=== PATIENT | male | born 1950 | race Caucasian/White ===

== ENCOUNTER 2017-07-29 09:27 | Emergency (ER) | payer OTHER ==
--- OUTSIDE RECORDS SUMMARY | 2017-07-29 09:29 | XMS REPORT | Clinical Summary ---
:1950 Author Organization [facility] Address [address] [place] [address] Care Team Providers Name Role Phone Felipe Hobson MD Primary Care Provider Allergies No Known Allergies Current Medications Prescription Sig. Disp. Refills Start Date End Date Status SINEMET 25-100 mg per 06/30/2016 Active tablet RABEprazole (ACIPHEX) 20 TAKE 1 TABLET BY 3 05/30/2016 Active mg EC tablet ORAL ROUTE 2 TIMES EVERY DAY ZOLOFT 100 mg tablet 06/30/2016 Active tamsulosin (FLOMAX) 0.4 05/06/2016 Active mg capsule,extended release 24hr finasteride (PROSCAR) 5 Take 5 mg by mouth 2 06/18/2016 Active mg tablet once daily. solifenacin (VESICARE) 10 07/18/2016 Active MG tablet aspirin (ECOTRIN) 81 MG Take 81 mg by mouth Active enteric coated tablet daily. docusate sodium (COLACE) Take 100 mg by Active 100 MG capsule mouth. 3 a day Active Problems Not on file Encounters Date Type Specialty Care Team Description 07/29/2016 Lab Lab Drew Hightower MD Thyroid nodule (Primary Dx) 07/29/2016 Office Visit Endocrinology Drew Hightower MD Thyroid nodule ( Primary Dx) after 07/28/2016 Family History Medical History Relation Name Comments Heart attack Father Cancer Mother Relation Name Status Comments Father Mother Social History Tobacco Use Types Packs/Day Years Used Date Never Smoker Smokeless Tobacco: Never Used Alcohol Use Drinks/Week oz/Week Comments No Sex Assigned at Date Recorded Not on file Last Filed Vital Signs Vital Sign Reading Time Taken Blood Pressure 136/81 07/29/2016 9:25 AM CDT Pulse 70 07/29/2016 9:25 AM CDT Temperature - - Respiratory Rate - - Oxygen Saturation - - Inhaled Oxygen Concentration - - Weight 89.4 kg (197 lb 3.2 oz) 07/29/2016 9:25 AM CDT Height 177.8 cm (5' 10") 07/29/2016 9:25 AM CDT Body Mass Index 28.3 07/29/2016 9:25 AM CDT Plan of Treatment Health Maintenance Due Date Last Done Comments COLONOSCOPY 01/19/1998 SHINGRIX VACCINE (#1) 01/19/1998 ZOSTER VACCINE 2008 PNEUMOCOCCAL POLYSACCHARIDE VACCINE AGE 65 AND OVER 01/19/2013 PNEUMOCOCCAL-13 01/19/2013 INFLUENZA VACCINE 11/01/2017 Results Cytology (non-gynecological) request (07/29/2016 6:59 AM) Component Value Ref Range Cytology (non-gynecological) report See link below for PDF Lab Report Specimen Performing Laboratory [facility] DEPARTMENT OF PATHOLOGY AND GENOMIC MEDICINE [address] [place] [address] after 07/28/2016 Insurance Payer Benefit Plan / Group Subscriber ID Type Phone Address HUMANA HUMANA HMO/POS/EPO/OPEN ACCESS xxxxxxxxx O Home: [phone] [place], [place] [id number]
[2017-07-29] MEDS ORDERED: PANTOPRAZOLE 40 MG INJ ONE (10:13)
[2017-07-29 10:59] LABS: Absolute Lymphocytes (CBC) 1.8 K/uL (0.7-4.9); Absolute Monocytes 0.5 K/uL (0.1-1.3); Absolute Neutrophil 5.6 K/uL (1.8-8.0); Basophils % 0.6 % (0-1.3); Eosinophils % 3.8 % (0-4.4); Hematocrit 44.7 % (39.6-49.0); Lymphocytes % 21.7 % (15.3-44.8); MCH 29.9 pg (27.0-35.0); MCV 89.2 fL (80-100); MPV 7.5 fL (7.6-11.3); Monocytes % 5.6 % (3.3-12.3); RBC Red Blood Cell Count 5.02 M/uL (4.33-5.43)
[2017-07-29 11:04] LABS: Potassium 4.3 mEq/L (3.6-5.0)
[2017-07-29 11:05] LABS: Protime INR 1.06
--- NOTE | 2017-07-29 11:07 | RAD REPORT ---
EXAM DESCRIPTION: CT - [id number] - 07/29/2017 10:44 am CLINICAL HISTORY: Trauma, head and neck injury. COMPARISON: None. TECHNIQUE: Axial 5 mm thick images of the head were obtained. Axial 2 mm thick images of the cervical spine were obtained with sagittal and coronal reconstruction images generated and reviewed. All CT scans are performed using dose optimization technique as appropriate and may include automated exposure control or mA/KV adjustment according to patient size. FINDINGS: CT HEAD WITHOUT CONTRAST: A small amount of crescentic hyperdensity is seen along the right temporal convexity suspicious for a small subdural hematoma, maximum thickness is 3 mm.No hydrocephalus is seen. No midline shift. The paranasal sinuses and mastoids are clear.The calvarium is intact. CT CERVICAL SPINE WITHOUT CONTRAST: No fracture or subluxation.Multilevel cervical degenerative changes are present.No prevertebral soft tissues swelling is identified. IMPRESSION: 3 mm right temporal acute subdural hematoma suspected. No cervical spine fracture suspected. Findings were discussed with Erich JAMESON in the ER 11 a.m. 04/30/2017 by telephone.
[2017-07-29 11:10] LABS: Albumin 4.4 g/dL (3.2-5.5); Bilirubin Direct 0.1 mg/dL (0-0.2); Bilirubin Total 0.6 mg/dL (0.3-1.2); Protein, Total 7.3 g/dL (6.0-8.3)
--- NOTE | 2017-07-29 11:42 | ER ---
Nurse's Notes [facility] Name: Osman Foy Age: 67 yrs Sex: Male : 1950 Arrival Date: 07/29/2017 Time: 09:31 Bed 5 Private MD: Diagnosis: Traumatic subdural hemorrhage Presentation: 07/29 09:46 Presenting complaint: Patient states: About 2 weeks ago I had a fall from standing and la1 hit the right side of my face right below my eye. -LOC, pt states it did not hurt till 3 days ago but now is having pain behind his right eye. Pt denies visual field loss. Transition of care: patient was not received from another setting of care. Onset of symptoms was July 29, 2017. Initial Sepsis Screen: Does the patient meet any 2 criteria? No. Patient's initial sepsis screen is negative. Does the patient have a suspected source of infection? No. Patient's initial sepsis screen is negative. Care prior to arrival: None. 09:46 Method Of Arrival: Ambulatory la1 09:46 Acuity: SHELIA 3 la1 Historical: - Allergies: 09:48 No Known Allergies; la1 - Home Meds: 11:35 memantine 5 mg oral tab 2 times per day [Active]; sertraline 100 mg oral tab 1 tab once hb daily [Active]; rabeprazole 20 mg oral TbEC 1 tab every 12 hours [Active]; finasteride 5 mg oral tab 1 tab once daily [Active]; Vesicare 10 mg oral tab 1 tab once daily [Active]; carbidopa-levodopa 25-100 mg Oral TbER 1 tab 3 times per day [Active]; tamsulosin 0.4 mg oral cp24 1 cap twice a day [Active]; Stool Softener oral oral [Active]; aspirin 81 mg Oral TbEC 1 tab once daily [Active]; rivastigmine tartrate 4.5 mg oral cap 1 cap 2 times per day [Active]; Myrbetriq 50 mg oral Tb24 1 tab once daily [Active]; - PMHx: 09:48 Parkinsons; la1 - PSHx: 11:35 Cholecystectomy; Appendectomy; Vasectomy; hb - Immunization history:: Adult Immunizations up to date. - Social history:: Smoking status: Patient/guardian denies using tobacco. Screenin:39 Abuse screen: Denies threats or abuse. Denies injuries from another. Nutritional hb screening: No deficits noted. Tuberculosis screening: No symptoms or risk factors identified. Fall Risk Total Vee Fall Scale indicates High Risk Score (45 or more points). Fall prevention measures have been instituted. Side Rails Up X 2 Frequent Obs/Assessments Occuring Family Present and informed to notify staff if the need to leave the bedside As available patient and family educated on Fall Prevention Program and Strategies. Assessment: 10:32 General: Appears in no apparent distress. Behavior is calm, cooperative. Pain: Pain hb currently is 7 out of 10 on a pain scale. Neuro: Level of Consciousness is awake, alert, obeys commands, Oriented to person, place, time, situation, Pupils are PERRLA. Cardiovascular: Capillary refill < 3 seconds Patient's skin is warm and dry. Respiratory: Airway is patent Trachea midline Respiratory effort is even, unlabored, Respiratory pattern is regular, symmetrical. GI: No signs and/or symptoms were reported involving the gastrointestinal system. : No signs and/or symptoms were reported regarding the genitourinary system. EENT: No signs and/or symptoms were reported regarding the EENT system. Derm: No signs and/or symptoms reported regarding the dermatologic system. Skin is intact, is healthy with good turgor. Musculoskeletal: No signs and/or symptoms reported regarding the musculoskeletal system. 11:30 Reassessment: Patient appears in no apparent distress at this time. No changes from hb previously documented assessment. Patient and/or family updated on plan of care and expected duration. Pain level reassessed. Patient is alert, oriented x 3, equal unlabored respirations, skin warm/dry/pink. 12:00 Reassessment: Patient appears in no apparent distress at this time. No changes from hb previously documented assessment. Patient and/or family updated on plan of care and expected duration. Pain level reassessed. Patient is alert, oriented x 3, equal unlabored respirations, skin warm/dry/pink. 12:11 Reassessment: Report called to JOSE Davis at [facility]. hb Vital Signs: 09:48 BP 151 / 89; Pulse 59; Resp 16; Temp 98.0(O); Pulse Ox 100% on R/A; Weight 88.45 kg; la1 Height 5 ft. 10 in. (177.80 cm); 10:30 BP 148 / 88; Pulse 58; Resp 16; Pulse Ox 100% on R/A; hb 11:32 BP 165 / 90; Pulse 84; Resp 16; Pulse Ox 100% on R/A; Pain 3/10; hb 12:30 BP 168 / 88; Pulse 74; Resp 16; Pulse Ox 100% on R/A; hb 12:50 BP 197 / 98; Pulse 68; Resp 15; Pulse Ox 100% on R/A; Pain 4/10; hb 09:48 Body Mass Index 27.98 (88.45 kg, 177.80 cm) la1 [place] Coma Score: 10:00 Eye Response: spontaneous(4). Verbal Response: oriented(5). Motor Response: obeys hb commands(6). Total: 15. 11:00 Eye Response: spontaneous(4). Verbal Response: oriented(5). Motor Response: obeys hb commands(6). Total: 15. 12:00 Eye Response: spontaneous(4). Verbal Response: oriented(5). Motor Response: obeys hb commands(6). Total: 15. ED Course: 09:31 Patient arrived in ED. mr 09:48 Triage completed. la1 09:48 Arm band placed on left wrist. la1 10:00 Patient has correct armband on for positive identification. Placed in gown. Bed in low hb position. Call light in reach. Side rails up X 1. 10:08 Erich Leyva PA is PHCP. cp 10:08 Erich Sierra MD is Attending Physician. cp 10:16 Opal Alanis, JOSE is Primary Nurse. hb 10:36 Inserted saline lock: 20 gauge in left antecubital area, using aseptic technique. Blood hb collected. 10:44 CT Head C Spine: fall 11 days ago, elevated blood pressure In Process Unspecified. EDMS 10:45 CT completed. Patient tolerated procedure well. Patient moved back from CT. bq 12:45 No provider procedures requiring assistance completed. IV discontinued, intact, hb bleeding controlled, No redness/swelling at site. Pressure dressing applied. Administered Medications: 12:51 Drug: morphine 2 mg Route: IVP; Site: left antecubital; hb 12:51 Follow up: Response: Medication administered at discharge. hb 12:51 Drug: Zofran 4 mg Route: IVP; Site: left antecubital; hb 12:52 Follow up: Response: Medication administered at discharge. hb 12:51 Drug: hydrALAZINE 5 mg Route: IV; Rate: calculated rate; Site: left antecubital; hb 12:52 Follow up: Response: Medication administered at discharge. hb 12:52 Follow up: IV Status: Completed infusion hb Outcome: 11:42 ER care complete, transfer ordered by . cp 12:45 Transferred by ground EMS to [facility]. hb 12:45 Condition: stable 12:45 Instructed on the need for transfer, Demonstrated understanding of instructions. Signatures: Dispatcher [employer] EDMS Diana Gonzalez mr LelandEden Lee, RN RN la1 Erich Leyva PA PA Opal Calabrese RN RN hb Corrections: (The following items were deleted from the chart) 18:42 12:52 Patient left the ED. hb hb
--- NOTE | 2017-07-29 11:42 | EDPHYS ---
Physician Documentation [facility] Name: Osman Foy Age: 67 yrs Sex: Male : 1950 Arrival Date: 07/29/2017 Time: 09:31 Bed 5 Private MD: ED Physician Erich Sierra HPI: 07/29 10:19 This 67 yrs old Male presents to ER via Ambulatory with complaints of cp Headache. 10:19 The patient complains of pain to the behind eyes. The patient describes the headache as cp waxing and waning. Onset: The symptoms/episode began/occurred 11 day(s) ago. Associated signs and symptoms: Pertinent negatives: altered mental status, dizziness, fever, neck stiffness, paresthesias, sinus congestion, sinus tenderness, vision changes, weakness. Severity of symptoms: in the emergency department the pain has improved, moderately, took tylenol this morning. Headache History: Denies prior headaches. Historical: - Allergies: 09:48 No Known Allergies; la1 - Home Meds: 11:35 memantine 5 mg oral tab 2 times per day [Active]; sertraline 100 mg oral tab 1 tab once hb daily [Active]; rabeprazole 20 mg oral TbEC 1 tab every 12 hours [Active]; finasteride 5 mg oral tab 1 tab once daily [Active]; Vesicare 10 mg oral tab 1 tab once daily [Active]; carbidopa-levodopa 25-100 mg Oral TbER 1 tab 3 times per day [Active]; tamsulosin 0.4 mg oral cp24 1 cap twice a day [Active]; Stool Softener oral oral [Active]; aspirin 81 mg Oral TbEC 1 tab once daily [Active]; rivastigmine tartrate 4.5 mg oral cap 1 cap 2 times per day [Active]; Myrbetriq 50 mg oral Tb24 1 tab once daily [Active]; - PMHx: 09:48 Parkinsons; la1 - PSHx: 11:35 Cholecystectomy; Appendectomy; Vasectomy; hb - Immunization history:: Adult Immunizations up to date. - Social history:: Smoking status: Patient/guardian denies using tobacco. ROS: 10:25 Constitutional: Negative for body aches, chills, fever, poor PO intake. cp 10:25 Eyes: Negative for injury, pain, redness, and discharge. cp 10:25 ENT: Negative for drainage from ear(s), ear pain, sore throat, difficulty swallowing, difficulty handling secretions. 10:25 Cardiovascular: Negative for chest pain, edema, palpitations. 10:25 Respiratory: Negative for cough, shortness of breath, wheezing. 10:25 Abdomen/GI: Negative for abdominal pain, vomiting, diarrhea, constipation, black/tarry stool, rectal bleeding. 10:25 Back: Negative for pain at rest, pain with movement, radiated pain. 10:25 Skin: Negative for cellulitis, rash. 10:25 Neuro: Positive for headache, Negative for altered mental status, dizziness, seizure activity, speech changes, weakness. 10:25 All other systems are negative. Exam: 10:33 Constitutional: The patient appears in no acute distress, alert, awake, cp non-diaphoretic, non-toxic, well developed, well nourished. 10:33 Head/Face: Normocephalic, atraumatic. cp 10:33 Eyes: Periorbital structures: appear normal, Pupils: equal, round, and reactive to light and accomodation, Extraocular movements: intact throughout, Conjunctiva: normal, no exudate, no injection, Sclera: no appreciated abnormality, Lids and lashes: appear normal, bilaterally. 10:33 ENT: External ear(s): are unremarkable, Ear canal(s): are normal, clear, TM's: bulging, is not appreciated, bilaterally, dullness, bilaterally, erythema, is not appreciated, bilaterally, Nose: is normal, Mouth: Lips: moist, Oral mucosa: pink and intact, moist, Posterior pharynx: is normal, airway is patent, no erythema, no exudate. 10:33 Neck: C-spine: vertebral tenderness, is not appreciated, crepitus, is not appreciated, ROM/movement: is normal, is supple, without pain, no range of motions limitations, no nuchal rigidity. 10:33 Chest/axilla: Inspection: normal, Palpation: is normal, no crepitus, no tenderness. 10:33 Cardiovascular: Rate: bradycardic, Rhythm: regular, Edema: JVD: is not appreciated. 10:33 Respiratory: the patient does not display signs of respiratory distress, Respirations: normal, no use of accessory muscles, no retractions, no splinting, no tachypnea, labored breathing, is not present, Breath sounds: are clear throughout, no decreased breath sounds, no stridor. 10:33 Abdomen/GI: Inspection: abdomen appears normal, Bowel sounds: active, all quadrants, Palpation: abdomen is soft and non-tender, in all quadrants, rebound tenderness, is not appreciated, voluntary guarding, is not appreciated, involuntary guarding, is not appreciated. 10:33 Back: pain, is absent, ROM is normal. 10:33 Musculoskeletal/extremity: Exam is negative for decreased range of motion, deformity, injury. 10:33 Skin: cellulitis, is not appreciated, no rash present. 10:33 Neuro: Orientation: to person, place \T\ time. Mentation: lucid, able to follow commands, Cerebellar function: Romberg testing is negative, normal finger to nose testing, Motor: moves all fours, strength is normal, Sensation: no obvious gross deficits. 11:06 ECG was reviewed by the Attending Physician. cp Vital Signs: 09:48 BP 151 / 89; Pulse 59; Resp 16; Temp 98.0(O); Pulse Ox 100% on R/A; Weight 88.45 kg; la1 Height 5 ft. 10 in. (177.80 cm); 10:30 BP 148 / 88; Pulse 58; Resp 16; Pulse Ox 100% on R/A; hb 11:32 BP 165 / 90; Pulse 84; Resp 16; Pulse Ox 100% on R/A; Pain 3/10; hb 12:30 BP 168 / 88; Pulse 74; Resp 16; Pulse Ox 100% on R/A; hb 12:50 BP 197 / 98; Pulse 68; Resp 15; Pulse Ox 100% on R/A; Pain 4/10; hb 09:48 Body Mass Index 27.98 (88.45 kg, 177.80 cm) la1 [place] Coma Score: 10:00 Eye Response: spontaneous(4). Verbal Response: oriented(5). Motor Response: obeys hb commands(6). Total: 15. 11:00 Eye Response: spontaneous(4). Verbal Response: oriented(5). Motor Response: obeys hb commands(6). Total: 15. 12:00 Eye Response: spontaneous(4). Verbal Response: oriented(5). Motor Response: obeys hb commands(6). Total: 15. MDM: 10:08 Patient medically screened. cp 10:30 Differential diagnosis: hypertensive headache, hyponatremia, intracerebral hemorrhage, cp subarachnoid bleed, subdural hematoma, temporal arteritis, tension headache. 11:18 Physician consultation: Christiano Collins MD was called at 11:18, was contacted at 11:18, regarding patient's condition, after a discussion of the case, a recommendation for transfer for higher level of care is made. 11:28 Data reviewed: vital signs, nurses notes, lab test result(s), EKG, radiologic studies, cp CT scan. Test interpretation: by ED physician or midlevel provider: ECG. 11:39 ED course: VSS. Consult with DR Singh \T[facility] who will accept patient as transfer. cp 07/29 10:23 Order name: Basic Metabolic Panel; Complete Time: 11:37 cp 07/29 11:54 Interpretation: Normal except: GLUC 129; GFR 66. cp 07/29 10:23 Order name: CBC with Diff; Complete Time: 11:07 cp 07/29 11:54 Interpretation: Normal except: MPV 7.5. cp 07/29 10:23 Order name: LFT's; Complete Time: 11:37 cp 07/29 10:23 Order name: Magnesium; Complete Time: 11:37 cp 07/29 10:23 Order name: PT-INR; Complete Time: 11:07 cp 07/29 10:23 Order name: Ptt, Activated; Complete Time: 11:07 cp 07/29 10:23 Order name: CT Head C Spine: fall 11 days ago, elevated blood pressure; Complete Time: cp 11:08 07/29 10:23 Order name: EKG; Complete Time: 10:24 cp 07/29 11:08 Order name: Ckmb; Complete Time: 11:53 cp 07/29 11:08 Order name: Creatine Phosphokinase; Complete Time: 11:53 cp 07/29 11:08 Order name: Troponin (emerg Dept Use Only); Complete Time: 11:53 cp 07/29 11:54 Interpretation: Reviewed. cp 07/29 10:23 Order name: Cardiac monitoring; Complete Time: 10:54 cp 07/29 10:23 Order name: EKG - Nurse/Tech; Complete Time: 10:55 cp 07/29 10:23 Order name: IV Saline Lock; Complete Time: 10:54 cp 07/29 10:23 Order name: Labs collected and sent; Complete Time: 10:54 cp 07/29 10:23 Order name: O2 Per Protocol; Complete Time: 10:54 cp 07/29 10:23 Order name: O2 Sat Monitoring; Complete Time: 10:54 cp EC:06 Rate is 58 beats/min. Rhythm is regular. ME interval is normal. QRS interval is normal. cp QT interval is normal. No ST changes noted. Interpreted by me. Reviewed by me. Administered Medications: 12:51 Drug: morphine 2 mg Route: IVP; Site: left antecubital; hb 12:51 Follow up: Response: Medication administered at discharge. hb 12:51 Drug: Zofran 4 mg Route: IVP; Site: left antecubital; hb 12:52 Follow up: Response: Medication administered at discharge. hb 12:51 Drug: hydrALAZINE 5 mg Route: IV; Rate: calculated rate; Site: left antecubital; hb 12:52 Follow up: Response: Medication administered at discharge. hb 12:52 Follow up: IV Status: Completed infusion hb Disposition: 07/29/17 11:[address] [facility]. Diagnosis is Traumatic subdural hemorrhage. - Reason for transfer: Higher level of care. - Accepting physician is DR Singh. - Condition is Stable. - Problem is new. - Symptoms are unchanged. Addendum: 07/31/2017 08:57 Co-signature as Attending Physician, Erich Sierra MD I agree with the assessment and c beasley plan of care. Signatures: Dispatcher [employer] EDErich Castaneda MD MD cha Attema, Lee, RN RN la1 Erich Leyva PA PA Opal Calabrese RN RN hb
[2017-07-29 11:48] LABS: CKMB Creatine Kinase MB 3.1 ng/ml (0.3-4.0)
[2017-07-29] MEDS ORDERED: MORPHINE 4 MG/ML SYR ONE (12:47)
[2017-07-29] MEDS ORDERED: HYDRALAZINE HCL 20 MG/ML VIAL ONE (12:48)
[2017-07-29 13:04] VITALS: TEMP 98; O2SAT 100
[2017-07-29 13:09] VITALS: BP 197/98
--- NOTE | 2017-07-30 16:12 | EKG ---
Test Date: 2017-07-29 Test Time: 11:02:40 Interior Design Assistant: SHAUN, MEASUREMENT RESULTS: Intervals: Rate: 58 GA: 144 QRSD: 94 QT: 432 QTc: 424 [place]: P: 43 GA: 144 QRS: 19 T: 45 INTERPRETIVE STATEMENTS: Sinus bradycardia Otherwise normal ECG Compared to ECG 12/25/2010 07:42:26 Atrial fibrillation no longer present ST (T wave) deviation no longer present Electronically Signed On 07-30-17 16:12:05 CDT by Boaz Yanez
== END 2017-07-29 12:52 | disposition short-term general hospital (02) ==
LOC: ER 09:27
DX: S06.5X0A Traumatic subdural hemorrhage without loss of consciousness, initial encounter (principal); G20 Parkinson's disease; W18.39XA Other fall on same level, initial encounter; Y93.89 Activity, other specified; Y92.9 Unspecified place or not applicable; Z79.82 Long term (current) use of aspirin
CPT/HCPCS: 36415; 70450; 72125; 80048; 80076; 82550; 82553; 83735; 84484; 85025; 85610; 85730; 93005; 96374; 96375; 99285; C9113; J0360

== ENCOUNTER 2017-08-11 13:19 | Inpatient (IN) | payer OTHER ==
--- OUTSIDE RECORDS SUMMARY | 2017-08-11 13:22 | XMS REPORT ---
:1950 [facility] Address [address] [place] [address] Dr. Peres [address] [place] [id number] Care Team Providers Name Role Phone MAGDA LIZAMA Unavailable Unavailable Problems This patient has no known problems. Allergies, Adverse Reactions, Alerts This patient has no known allergies or adverse reactions. Medications This patient has no known medications. Results Test Description Test Time Test Comments Text Results Atomic Results Result Comments URINALYSIS W/ REFLEX URINE CULTURE 2017-08-02 13:54:00 Test Item Value Reference Range Comments COLOR (BEAKER) (test qqis=745) Light Yellow CLARITY (BEAKER) (test ukut=734) Clear SPECIFIC GRAVITY UA (BEAKER) (test avgh=100) 1.007 1.001-1.035 PH UA (BEAKER) (test lihw=472) 6.0 5.0-8.0 PROTEIN UA (BEAKER) (test uicd=949) Negative Negative GLUCOSE UA (BEAKER) (test zcfk=641) Negative Negative KETONES UA (BEAKER) (test yvww=500) Negative Negative BILIRUBIN UA (BEAKER) (test ukxx=954) Negative Negative BLOOD UA (BEAKER) (test spuk=109) Trace Negative NITRITE UA (BEAKER) (test gtdj=631) Negative Negative LEUKOCYTE ESTERASE UA (BEAKER) (test behs=379) Trace Negative UROBILINOGEN UA (BEAKER) (test dync=421) 0.2 mg/dL 0.2-1.0 RBC UA (BEAKER) (test kxlt=187) 5 /HPF WBC UA (BEAKER) (test uoss=577) 2 /HPF MUCUS (BEAKER) (test ljnz=1659) Rare SQUAMOUS EPITHELIAL (BEAKER) (test asex=871) < /HPF SOURCE(BEAKER) (test qdhv=4490) BASIC METABOLIC [id number] 05:53:00 Test Item Value Reference Range Comments SODIUM (BEAKER) (test 141 meq/L 136-145 pczk=165) POTASSIUM (BEAKER) (test 4.2 meq/L 3.5-5.1 uexx=066) CHLORIDE (BEAKER) (test 110 meq/L 98-107 ewhb=091) CO2 (BEAKER) (test 20 meq/L 22-29 ofvm=062) BLOOD UREA NITROGEN 16 mg/dL 7-21 (BEAKER) (test sick=936) CREATININE (BEAKER) (test 1.01 mg/dL 0.57-1.25 ssxi=324) GLUCOSE RANDOM (BEAKER) 125 mg/dL 70-105 (test seay=096) CALCIUM (BEAKER) (test 9.6 mg/dL 8.4-10.2 pjhk=841) EGFR (BEAKER) (test 73 mL/min/1.73 sq m ESTIMATED GFR IS NOT wlmp=6670) ACCURATE CREATININE CLEARANCE IN PREDICTING GLOMERULAR FILTRATION RATE. ESTIMATED GFR IS NOT APPLICABLE FOR DIALYSIS PATIENTS. CBC W/PLT COUNT & AUTO [id number] 05:39:00 Test Item Value Reference Range Comments WHITE BLOOD CELL COUNT (BEAKER) (test qfli=896) 9.8 K/ L 3.5-10.5 RED BLOOD CELL COUNT (BEAKER) (test ieee=452) 4.81 M/ L 4.63-6.08 HEMOGLOBIN (BEAKER) (test blhy=394) 13.8 GM/DL 13.7-17.5 HEMATOCRIT (BEAKER) (test nkye=725) 43.3 % 40.1-51.0 MEAN CORPUSCULAR VOLUME (BEAKER) (test pqgh=861) 90.0 fL 79.0-92.2 MEAN CORPUSCULAR HEMOGLOBIN (BEAKER) (test 28.7 pg 25.7-32.2 xuiz=052) MEAN CORPUSCULAR HEMOGLOBIN CONC (BEAKER) (test 31.9 GM/DL 32.3-36.5 kxxv=068) RED CELL DISTRIBUTION WIDTH (BEAKER) (test 13.6 % 11.6-14.4 axfq=617) PLATELET COUNT (BEAKER) (test fyga=408) 225 K/CU MM 150-450 MEAN PLATELET VOLUME (BEAKER) (test zbcz=620) 9.3 fL 9.4-12.4 NUCLEATED RED BLOOD CELLS (BEAKER) (test 0 /100 WBC 0-0 wykp=504) NEUTROPHILS RELATIVE PERCENT (BEAKER) (test 68 % zxay=999) LYMPHOCYTES RELATIVE PERCENT (BEAKER) (test 18 % iwkc=316) MONOCYTES RELATIVE PERCENT (BEAKER) (test 7 % nnvq=011) EOSINOPHILS RELATIVE PERCENT (BEAKER) (test 6 % tvfl=793) BASOPHILS RELATIVE PERCENT (BEAKER) (test 1 % gonx=077) NEUTROPHILS ABSOLUTE COUNT (BEAKER) (test 6.61 K/ L 1.78-5.38 inxr=295) LYMPHOCYTES ABSOLUTE COUNT (BEAKER) (test 1.80 K/ L 1.32-3.57 pvzn=618) MONOCYTES ABSOLUTE COUNT (BEAKER) (test 0.68 K/ L 0.30-0.82 upbe=684) EOSINOPHILS ABSOLUTE COUNT (BEAKER) (test 0.61 K/ L 0.04-0.54 zvsf=440) BASOPHILS ABSOLUTE COUNT (BEAKER) (test 0.05 K/ L 0.01-0.08 caev=331) IMMATURE GRANULOCYTES-RELATIVE PERCENT (BEAKER) 0 % 0-1 (test tmvs=0848) POCT-GLUCOSE [id number] 12:48:00 Test Item Value Reference Range Comments POC-GLUCOSE METER (BEAKER) 111 mg/dL 70-110 TESTED AT [address] (test qhou=0516) [place] [address] POCT-GLUCOSE [id number] 06:51:00 Test Item Value Reference Range Comments POC-GLUCOSE METER (BEAKER) 113 mg/dL 70-110 TESTED AT [address] (test kfzl=8593) [place] [address] BASIC METABOLIC [id number] 04:35:00 Test Item Value Reference Range Comments SODIUM (BEAKER) (test 140 meq/L 136-145 wirt=136) POTASSIUM (BEAKER) (test 4.2 meq/L 3.5-5.1 rvas=364) CHLORIDE (BEAKER) (test 110 meq/L 98-107 njyh=606) CO2 (BEAKER) (test 22 meq/L 22-29 dwof=367) BLOOD UREA NITROGEN 18 mg/dL 7-21 (BEAKER) (test llzg=847) CREATININE (BEAKER) (test 0.96 mg/dL 0.57-1.25 rgjx=681) GLUCOSE RANDOM (BEAKER) 102 mg/dL 70-105 (test rpoh=491) CALCIUM (BEAKER) (test 8.7 mg/dL 8.4-10.2 gcij=876) EGFR (BEAKER) (test 78 mL/min/1.73 sq m ESTIMATED GFR IS NOT biwq=0179) ACCURATE CREATININE CLEARANCE IN PREDICTING GLOMERULAR FILTRATION RATE. ESTIMATED GFR IS NOT APPLICABLE FOR DIALYSIS PATIENTS. CBC W/PLT COUNT & AUTO [id number] 04:10:00 Test Item Value Reference Range Comments WHITE BLOOD CELL COUNT (BEAKER) (test bksr=865) 9.5 K/ L 3.5-10.5 RED BLOOD CELL COUNT (BEAKER) (test qxhz=452) 4.61 M/ L 4.63-6.08 HEMOGLOBIN (BEAKER) (test lsiq=020) 13.3 GM/DL 13.7-17.5 HEMATOCRIT (BEAKER) (test xewu=958) 42.6 % 40.1-51.0 MEAN CORPUSCULAR VOLUME (BEAKER) (test azie=521) 92.4 fL 79.0-92.2 MEAN CORPUSCULAR HEMOGLOBIN (BEAKER) (test 28.9 pg 25.7-32.2 vcgl=005) MEAN CORPUSCULAR HEMOGLOBIN CONC (BEAKER) (test 31.2 GM/DL 32.3-36.5 qirw=779) RED CELL DISTRIBUTION WIDTH (BEAKER) (test 13.4 % 11.6-14.4 nezz=419) PLATELET COUNT (BEAKER) (test wyvp=552) 225 K/CU MM 150-450 MEAN PLATELET VOLUME (BEAKER) (test xgcv=071) 9.3 fL 9.4-12.4 NUCLEATED RED BLOOD CELLS (BEAKER) (test 0 /100 WBC 0-0 nwun=849) NEUTROPHILS RELATIVE PERCENT (BEAKER) (test 57 % togr=115) LYMPHOCYTES RELATIVE PERCENT (BEAKER) (test 29 % suss=079) MONOCYTES RELATIVE PERCENT (BEAKER) (test 6 % hkef=237) EOSINOPHILS RELATIVE PERCENT (BEAKER) (test 7 % egou=670) BASOPHILS RELATIVE PERCENT (BEAKER) (test 1 % xfpb=876) NEUTROPHILS ABSOLUTE COUNT (BEAKER) (test 5.38 K/ L 1.78-5.38 ugzd=619) LYMPHOCYTES ABSOLUTE COUNT (BEAKER) (test 2.75 K/ L 1.32-3.57 dnjl=227) MONOCYTES ABSOLUTE COUNT (BEAKER) (test 0.60 K/ L 0.30-0.82 ycbc=654) EOSINOPHILS ABSOLUTE COUNT (BEAKER) (test 0.64 K/ L 0.04-0.54 uyjc=652) BASOPHILS ABSOLUTE COUNT (BEAKER) (test 0.06 K/ L 0.01-0.08 nmkt=942) IMMATURE GRANULOCYTES-RELATIVE PERCENT (BEAKER) 0 % 0-1 (test vyly=5230) POCT-GLUCOSE [id number] 03:43:00 Test Item Value Reference Range Comments POC-GLUCOSE METER (BEAKER) 177 mg/dL 70-110 TESTED AT [address] (test xstn=8770) [place] [address] POCT-GLUCOSE [id number] 22:34:00 Test Item Value Reference Range Comments POC-GLUCOSE METER (BEAKER) 128 mg/dL 70-110 TESTED AT [address] (test terv=4385) [place] [id number] POCT-GLUCOSE [id number] 22:19:00 Test Item Value Reference Range Comments POC-GLUCOSE METER (BEAKER) 126 mg/dL 70-110 TESTED AT [address] (test mowg=9527) [place] [id number] POCT-GLUCOSE [id number] 12:26:00 Test Item Value Reference Range Comments POC-GLUCOSE METER (BEAKER) 136 mg/dL 70-110 TESTED AT [address] (test iwkc=7965) [place] [id number] POCT-GLUCOSE [id number] 08:22:00 Test Item Value Reference Range Comments POC-GLUCOSE METER (BEAKER) 108 mg/dL 70-110 TESTED AT [address] (test riah=1370) [place] [id number] CT BRAIN WITHOUT IV CONTRAST - [id number] 08:16:00Reason for exam:-> SDHFINAL REPORT CT Head without contrast CLINICAL HISTORY : SDH TECHNIQUE: Contiguous axial images through the head without contrast on the portable CT unit. This exam was performed according to the departmental dose optimization program which includes automated exposure control, adjustment of the mA and/or kV according to the patient size, and/or use of an iterative reconstructiontechnique. COMPARISON: None FINDINGS: Allowing for the portable head CT technique, there is questionable trace extra-axial thickening in the right lateral temporal region which may represent the statedhistory of subdural hematoma. However, it is not definitive given the portable CT technique, and there is no significant mass effect. There is no other definitive portable CT evidence for infarct or hemorrhage. There is generalized parenchymal volume loss without hydrocephalus or midline shift. The skull is intact. IMPRESSION: Questionable trace right lateral temporal region subdural hematoma given the clinical history. However, comparison with outside imaging and attention on follow-up is recommended. Signed: Shelby Eubanks MDReport Verified Date/Time: 08:16:45 Reading Location: [facility] C013V Neuro Reading Room [id number] 05:36:00 Test Item Value Reference Range Comments MAGNESIUM (BEAKER) (test 2.1 mg/dL 1.6-2.6 Specimen slightly hemolyzed ceoy=450) Once on admission and Daily AM afterwardsOnce on admission and Daily AM afterwardsOnce on admission and Daily AM [id number] 05:36:00 Test Item Value Reference Range Comments PHOSPHORUS (BEAKER) (test 3.2 mg/dL 2.3-4.7 Specimen slightly hemolyzed xuoy=520) Once on admission and Daily AM afterwardsOnce on admission and Daily AM afterwardsOnce on admission and Daily AM afterwardsBASIC METABOLIC [id number] 05:36:00 Test Item Value Reference Range Comments SODIUM (BEAKER) (test 139 meq/L 136-145 lonu=252) POTASSIUM (BEAKER) (test 4.7 meq/L 3.5-5.1 Specimen slightly afrf=841) hemolyzed CHLORIDE (BEAKER) (test 110 meq/L 98-107 yrva=322) CO2 (BEAKER) (test 18 meq/L 22-29 ynzg=966) BLOOD UREA NITROGEN 14 mg/dL 7-21 (BEAKER) (test iuzz=324) CREATININE (BEAKER) (test 0.92 mg/dL 0.57-1.25 Specimen slightly nvpv=844) hemolyzed GLUCOSE RANDOM (BEAKER) 93 mg/dL 70-105 (test yplz=188) CALCIUM (BEAKER) (test 9.2 mg/dL 8.4-10.2 cqim=884) EGFR (BEAKER) (test 82 mL/min/1.73 sq m ESTIMATED GFR IS NOT pqil=9232) ACCURATE CREATININE CLEARANCE IN PREDICTING GLOMERULAR FILTRATION RATE. ESTIMATED GFR IS NOT APPLICABLE FOR DIALYSIS PATIENTS. Once on admission and Daily AM afterwardsOnce on admission and Daily AM afterwardsOnce on admission and Daily AM afterwardsCBC W/PLT COUNT & AUTO [id number] 04:16:00 Test Item Value Reference Range Comments WHITE BLOOD CELL COUNT (BEAKER) (test bpzd=750) 11.3 K/ L 3.5-10.5 RED BLOOD CELL COUNT (BEAKER) (test emlf=529) 5.12 M/ L 4.63-6.08 HEMOGLOBIN (BEAKER) (test vqaa=397) 15.3 GM/DL 13.7-17.5 HEMATOCRIT (BEAKER) (test axzd=007) 47.5 % 40.1-51.0 MEAN CORPUSCULAR VOLUME (BEAKER) (test lfbd=227) 92.8 fL 79.0-92.2 MEAN CORPUSCULAR HEMOGLOBIN (BEAKER) (test 29.9 pg 25.7-32.2 sozq=311) MEAN CORPUSCULAR HEMOGLOBIN CONC (BEAKER) (test 32.2 GM/DL 32.3-36.5 htdj=415) RED CELL DISTRIBUTION WIDTH (BEAKER) (test 13.0 % 11.6-14.4 uztz=580) PLATELET COUNT (BEAKER) (test qjjq=469) 210 K/CU MM 150-450 MEAN PLATELET VOLUME (BEAKER) (test vwkq=460) 9.0 fL 9.4-12.4 NUCLEATED RED BLOOD CELLS (BEAKER) (test 0 /100 WBC 0-0 mnep=486) NEUTROPHILS RELATIVE PERCENT (BEAKER) (test 66 % ceax=595) LYMPHOCYTES RELATIVE PERCENT (BEAKER) (test 23 % foaq=014) MONOCYTES RELATIVE PERCENT (BEAKER) (test 7 % jefi=512) EOSINOPHILS RELATIVE PERCENT (BEAKER) (test 3 % eqsm=707) BASOPHILS RELATIVE PERCENT (BEAKER) (test 0 % azyv=990) NEUTROPHILS ABSOLUTE COUNT (BEAKER) (test 7.42 K/ L 1.78-5.38 cuff=866) LYMPHOCYTES ABSOLUTE COUNT (BEAKER) (test 2.64 K/ L 1.32-3.57 tekt=210) MONOCYTES ABSOLUTE COUNT (BEAKER) (test 0.82 K/ L 0.30-0.82 vxta=190) EOSINOPHILS ABSOLUTE COUNT (BEAKER) (test 0.30 K/ L 0.04-0.54 meiv=125) BASOPHILS ABSOLUTE COUNT (BEAKER) (test 0.05 K/ L 0.01-0.08 pzao=037) IMMATURE GRANULOCYTES-RELATIVE PERCENT (BEAKER) 0 % 0-1 (test gyhs=7236) POCT-GLUCOSE [id number] 22:02:00 Test Item Value Reference Range Comments POC-GLUCOSE METER (BEAKER) 118 mg/dL 70-[address] [facility] [address] [facility] (test wwpq=0154) [facility] [address] URINALYSIS W/ [id number] 18:07:00 Test Item Value Reference Range Comments COLOR (BEAKER) (test mlwc=183) Yellow CLARITY (BEAKER) (test jldn=843) Clear SPECIFIC GRAVITY UA (BEAKER) (test zbwh=025) 1.010 1.001-1.035 PH UA (BEAKER) (test xciq=443) 8.0 5.0-8.0 PROTEIN UA (BEAKER) (test dkis=394) Negative Negative GLUCOSE UA (BEAKER) (test klyi=304) Negative Negative KETONES UA (BEAKER) (test ozhf=152) Trace Negative BILIRUBIN UA (BEAKER) (test cckg=559) Negative Negative BLOOD UA (BEAKER) (test lxun=236) Negative Negative NITRITE UA (BEAKER) (test bjwl=690) Negative Negative LEUKOCYTE ESTERASE UA (BEAKER) (test qpuy=427) Negative Negative UROBILINOGEN UA (BEAKER) (test lxkd=419) 0.2 mg/dL 0.2-1.0 RBC UA (BEAKER) (test ltec=538) < /HPF WBC UA (BEAKER) (test cvwj=739) 0 /HPF SQUAMOUS EPITHELIAL (BEAKER) (test zses=876) < /HPF SOURCE(BEAKER) (test dpxc=8784) TROPONIN [id number] 17:06:00 Test Item Value Reference Range Comments TROPONIN I (BEAKER) (test usne=933) 0.02 ng/mL 0.00-0.03 Troponin I (TnI) levels must be interpreted in the context of the presenting symptoms and the clinical findings. Elevated TnI levels indicate myocardial damage, but are not specific for ischemic heart disease. Elevated TnI levels are seen in patients with other cardiac conditions (including myocarditis and congestive heart failure), and slight TnI elevations occur in patients with other conditions, including sepsis, renal failure, acidosis, acute neurological disease, and persistent tachyarrhythmia.HEPATIC FUNCTION [id number] 15:29: 00 Test Item Value Reference Range Comments TOTAL PROTEIN (BEAKER) (test kzzj=280) 7.0 gm/dL 6.0-8.3 ALBUMIN (BEAKER) (test jdas=8711) 4.2 g/dL 3.5-5.0 BILIRUBIN TOTAL (BEAKER) (test gjul=493) 0.7 mg/dL 0.2-1.2 BILIRUBIN DIRECT (BEAKER) (test fnqt=927) 0.2 mg/dL 0.1-0.5 ALKALINE PHOSPHATASE (BEAKER) (test rqxr=395) 105 U/L 40-150 AST (SGOT) (BEAKER) (test dyiu=400) 20 U/L 5-34 ALT (SGPT) (BEAKER) (test dzpa=633) < U/L 6-55 PROTHROMBIN TIME/[id number] 15:11:00 Test Item Value Reference Range Comments PROTIME (BEAKER) (test yein=846) 13.9 seconds 11.7-14.7 INR (BEAKER) (test ohbq=458) 1.1 <=5.9 RECOMMENDED COUMADIN/WARFARIN INR THERAPY RANGESSTANDARD DOSE: 2.0 - 3.0 Includes: PROPHYLAXIS forvenous thrombosis, systemic embolization; TREATMENT for venous thrombosis and/or pulmonary embolus.HIGH RISK: Target INR is 2.5-3.5 for patients with mechanical heart valves.[id number] 15:11:00 Test Item Value Reference Range Comments PARTIAL THROMBOPLASTIN TIME (BEAKER) (test 29.9 seconds 22.5-36.0 oonp=027)
--- OUTSIDE RECORDS SUMMARY | 2017-08-11 13:22 | XMS REPORT | Clinical Summary ---
:1950 Author Organization [facility] Address [address] [place] [address] Care Team Providers Name Role Phone Felipe [...] a day Active Problems Not on file Family History Medical History Relation Name Comments Heart attack Father Cancer Mother Relation Name Status Comments Father Mother Social History Tobacco Use Types Packs/Day Years Used Date Never Smoker Smokeless Tobacco: Never Used Alcohol Use Drinks/Week oz/Week Comments No Sex Assigned at Date Recorded Not on file Last Filed Vital Signs Not on file Plan of Treatment Health Maintenance Due Date Last Done Comments COLONOSCOPY 01/19/1998 SHINGRIX VACCINE (#1) 01/19/1998 ZOSTER VACCINE 2008 PNEUMOCOCCAL POLYSACCHARIDE VACCINE AGE 65 AND OVER 01/19/2013 PNEUMOCOCCAL-13 01/19/2013 INFLUENZA VACCINE 11/01/2017 Results Not on fileafter 08/10/2016 Insurance Payer Benefit Plan / Group Subscriber ID Type Phone Address HUMA[employer] HU[employer]NA HMO/POS/EPO/OPEN ACCESS xxxxxxxxx HMO Home: [phone] [place] [id number]
--- OUTSIDE RECORDS SUMMARY | 2017-08-11 13:22 | XMS REPORT | Clinical Summary ---
:1950 Author Organization [facility] Address [address] [place] [address] Phone Care Team Providers Name Role Phone Unavailable Primary Care Provider Unavailable Allergies No Known Allergies Current Medications Prescription Sig. Disp. Refills Start Date End Date Status memantine (NAMENDA) 5 MG Take 5 mg by mouth Active tablet 2 (two) times daily. sertraline (ZOLOFT) 25 MG Take 100 mg by Active tablet mouth daily. RABEprazole (ACIPHEX) 20 Take 20 mg by mouth Active mg EC tablet 2 (two) times daily. tamsulosin (FLOMAX) 0.4 Take 0.4 mg by Active mg Cp24 24 hr capsule mouth daily. finasteride (PROPECIA) 1 Take 5 mg by mouth Active mg tablet daily. solifenacin (VESICARE) 10 Take 5 mg by mouth Active MG tablet daily. carbidopa-levodopa Take 2 tablets by Active (SINEMET CR) 25-100 mg mouth 3 (three) per tablet times daily. docusate sodium (COLACE) Take 100 mg by Active 100 MG mouth 2 (two) times capsuleIndications: 3tabs daily. aspirin 81 MG EC tablet Take 81 mg by mouth Active daily. rivastigmine (EXELON) 4.6 Place 1 patch onto Active mg/24 hr patch the skin daily. mirabegron (MYRBETRIQ) 50 Take 50 mg by mouth Active mg Tb24 ER tablet daily. Active Problems Problem Noted Date Parkinson's disease (HCC) 07/30/2017 Subdural hematoma ([facility]) 07/29/2017 Encounters Date Type Specialty Care Team Description 07/29/2017 - Hospital Encounter General Internal Teofilo Singh Acute subdural 08/02/2017 Medicine anette Childers MD ([facility]);Traumatic Arif, Sahar, brain injury, without loss of consciousness, initial encounter ([facility]);Parkinson's disease ([facility]);Subdural hematoma ([facility]);Orthostatic hypotension;Gait abnormality;Impaired mobility and ADLs;Neurogenic bladder after 08/10/2016 Social History Tobacco Use Types Packs/Day Years Used Date Never Smoker Smokeless Tobacco: Never Used Alcohol Use Drinks/Week oz/Week Comments No Sex Assigned at Date Recorded Not on file Last Filed Vital Signs Vital Sign Reading Time Taken Blood Pressure 133/66 08/02/2017 11:00 AM CDT Pulse 96 08/02/2017 11:00 AM CDT Temperature 35.9 C (96.7 F) 08/02/2017 11:00 AM CDT Respiratory Rate 20 08/02/2017 11:00 AM CDT Oxygen Saturation 96% 08/02/2017 11:00 AM CDT Inhaled Oxygen Concentration - - Weight 86 kg (189 lb 9.5 oz) 07/31/2017 10:00 AM CDT Height 177.8 cm (5' 10") 07/29/2017 2:15 PM CDT Body Mass Index 27.2 07/31/2017 10:00 AM CDT Plan of Treatment Not on file Results EKG-SCANNED (08/03/2017 2:40 PM)RHYTHM STRIP - SCAN (08/03/2017 2:40 PM) Urinalysis w/Microscopic + Reflex to Culture (08/02/2017 1:06 PM) Component Value Ref Range Color, UA Light Yellow Clarity, UA Clear Specific Colora, UA 1.007 1.001 - 1.035 pH, UA 6.0 5.0 - 8.0 Protein, UA Negative Negative Glucose, UA Negative Negative Ketones, UA Negative Negative Bilirubin, UA Negative Negative Blood, UA Trace (A) Negative Nitrite, UA Negative Negative Leukocytes, UA Trace (A) Negative Urobilinogen, UA 0.2 0.2 - 1.0 mg/dL RBC, UA 5 /HPF WBC, UA 2 /HPF Mucus Rare Squam Epithel, UA <1 /HPF Specimen Source Specimen Performing Laboratory Urine - Urine, Straight Catheter [facility] [address] [place] [id number] Urine culture (08/02/2017 1:06 PM) Component Value Ref Range Result <10,000 col/mL Citrobacter koseri (A) Specimen Performing Laboratory Urine - Urine, Straight Catheter [facility] [address] [place] [address] Organism Antibiotic Method Susceptibility Citrobacter koseri Amikacin <=2: Susceptible Citrobacter koseri Aztreonam <=1: Susceptible Citrobacter koseri Cefepime <=1: Susceptible Citrobacter koseri Cefoxitin <=4: Susceptible Citrobacter koseri Ceftazidime <=1: Susceptible Citrobacter koseri Ceftriaxone <=1: Susceptible Citrobacter koseri Ertapenem <=0.5: Susceptible Citrobacter koseri Gentamicin <=1: Susceptible Citrobacter koseri Levofloxacin <=0.12: Susceptible Citrobacter koseri Meropenem <=0.25: Susceptible Citrobacter koseri Nitrofurantoin 32: Susceptible Citrobacter koseri Piperacillin + Tazobactam <=4: Susceptible Citrobacter koseri Tetracycline <=1: Susceptible Citrobacter koseri Tobramycin <=1: Susceptible Citrobacter koseri Trimethoprim + Sulfamethoxazole <=20: Susceptible CBC with platelet count + automated diff (08/02/2017 5:18 AM)Only the most recent of3 resultswithin the time period is included. Component Value Ref Range WBC 9.8 3.5 - 10.5 K/L RBC 4.81 4.63 - 6.08 M/L Hemoglobin 13.8 13.7 - 17.5 GM/DL Hematocrit 43.3 40.1 - 51.0 % MCV 90.0 79.0 - 92.2 fL MCH 28.7 25.7 - 32.2 pg MCHC 31.9 (L) 32.3 - 36.5 GM/DL RDW 13.6 11.6 - 14.4 % Platelets 225 150 - 450 K/CU MM MPV 9.3 (L) 9.4 - 12.4 fL nRBC 0 0 - 0 /100 WBC % Neutros 68 % % Lymphs 18 % % Monos 7 % % Eos 6 % % Baso 1 % # Neutros 6.61 (H) 1.78 - 5.38 K/L # Lymphs 1.80 1.32 - 3.57 K/L # Monos 0.68 0.30 - 0.82 K/L # Eos 0.61 (H) 0.04 - 0.54 K/L # Baso 0.05 0.01 - 0.08 K/L Immature Granulocytes-Relative 0 0 - 1 % Specimen Performing Laboratory Blood [address] [address] CBC with platelet count + automated diff (08/02/2017 5:18 AM)Only the most recent of3 resultswithin the time period is included. Specimen Performing Laboratory Blood Narrative The following orders were created for panel order CBC with platelet count + automated diff. Procedure Abnormality Status --------- ------ CBC with platelet count ...[[id number]]AbnormalFinal result Please view results for these tests on the individual orders. Basic Metabolic Panel (08/02/2017 5:18 AM)Only the most recent of3 resultswithin the time period is included. Component Value Ref Range Sodium 141 136 - 145 meq/L Potassium 4.2 3.5 - 5.1 meq/L Chloride 110 (H) 98 - 107 meq/L CO2 20 (L) 22 - 29 meq/L BUN 16 7 - 21 mg/dL Creatinine 1.01 0.57 - 1.25 mg/dL Glucose 125 (H) 70 - 105 mg/dL Calcium 9.6 8.4 - 10.2 mg/dL EGFR 73Comment: ESTIMATED GFR IS NOT ACCURATE mL/min/1.73 sq m CREATININE CLEARANCE IN PREDICTING GLOMERULAR FILTRATION RATE. ESTIMATED GFR IS NOT APPLICABLE FOR DIALYSIS PATIENTS. Specimen Performing Laboratory Blood [address] [address] POC-Glucose meter (08/01/2017 12:47 PM)Only the most recent of8 resultswithin the time period is included. Component Value Ref Range POC-Glucose Meter 111 (H)Comment: TESTED AT [address] 70 - 110 mg/[place] [address] Specimen Performing Laboratory Blood [address] [address] [address] brain without IV contrast portable (07/30/2017 5:42 AM) Specimen Performing Laboratory GE RIS Narrative FINAL REPORT CT Head without contrast CLINICAL HISTORY: SDH TECHNIQUE: Contiguous axial images through the head without contrast on the portable CT unit. This exam was performed according to the departmental dose optimization program which includes automated exposure control, adjustment of the mA and/or kV according to the patient size, and/or use of an iterative reconstruction technique. COMPARISON: None FINDINGS: Allowing for the portable head CT technique, there is questionable trace extra-axial thickening in the right lateral temporal region which may represent the stated history of subdural hematoma. However, it is not [...] on follow-up is recommended. Signed: Shelby Eubanks MD Report Verified Date/Time:07/30/2017 08:16:45 Reading Location: [address] Neuro Reading Room Procedure Note Interface, External Ris In - 07/30/2017 8:18 AM CDT FINAL REPORT CT Head without contrast CLINICAL HISTORY: SDH TECHNIQUE: Contiguous axial images through the head without contrast on the portable CT unit. This exam was performed according to the departmental dose optimization program which includes automated exposure control, adjustment of the mA and/or kV according to the patient size, and/or use of an iterative reconstruction technique. COMPARISON: None FINDINGS: Allowing for the portable head CT technique, there is questionable trace extra-axial thickening in the right lateral temporal region which may represent the stated history of subdural hematoma. However, it is not [...] on follow-up is recommended. Signed: Shelby Eubanks MD Report Verified Date/Time: 07/30/2017 08:16:45 Reading Location: [address] Neuro Reading Room Phosphorus (07/30/2017 3:41 AM) Component Value Ref Range Phosphorus 3.2Comment: Specimen slightly hemolyzed 2.3 - 4.7 mg/dL Specimen Performing Laboratory Blood [address] [address] Narrative Once on admission and Daily AM afterwards Once on admission and Daily AM afterwards Once on admission and Daily AM afterwards Magnesium (07/30/2017 3:41 AM) Component Value Ref Range Magnesium 2.1Comment: Specimen slightly hemolyzed 1.6 - 2.6 mg/dL Specimen Performing Laboratory Blood [address] [address] Narrative Once on admission and Daily AM afterwards Once on admission and Daily AM afterwards Once on admission and Daily AM afterwards Urinalysis w/Microscopic (07/29/2017 5:50 PM) Component Value Ref Range Color, UA Yellow Clarity, UA Clear Specific Colora, UA 1.010 1.001 - 1.035 pH, UA 8.0 5.0 - 8.0 Protein, UA Negative Negative Glucose, UA Negative Negative Ketones, UA Trace (A) Negative Bilirubin, UA Negative Negative Blood, UA Negative Negative Nitrite, UA Negative Negative Leukocytes, UA Negative Negative Urobilinogen, UA 0.2 0.2 - 1.0 mg/dL RBC, UA <1 /HPF WBC, UA 0 /HPF Squam Epithel, UA <1 /HPF Specimen Source Specimen Performing Laboratory Urine [address] [address] ECG 12 lead (07/29/2017 5:47 PM) Specimen Performing Laboratory GE MUSE Narrative Ventricular Rate 87 BPM Atrial Rate 87 BPM P-R Interval 142 ms QRS Duration 88 ms Q-T Interval 402 ms QTC Calculation(Bazett) 483 ms P [place] 43 degrees R [place] 10 degrees T [place] 24 degrees Normal sinus rhythm Prolonged QT Abnormal ECG No previous ECGs available Confirmed by MD CABAN JOSEPH P ([id number]) on 07/30/2017 10:35:37 AM Procedure Note Interface, External Ris In - 07/30/2017 10:35 AM CDT Ventricular Rate 87 BPM Atrial Rate 87 BPM P-R Interval 142 ms QRS Duration 88 ms Q-T Interval 402 ms QTC Calculation(Bazett) 483 ms P [place] 43 degrees R [place] 10 degrees T [place] 24 degrees Normal sinus rhythm Prolonged QT Abnormal ECG No previous ECGs available Confirmed by MD CABAN JOSEPH P ([id number]) on 07/30/2017 10:35:37 AM Troponin I (07/29/2017 2:46 PM) Component Value Ref Range Troponin I 0.02 0.00 - 0.03 ng/mL Specimen Performing Laboratory Blood [address] [address] Narrative Troponin I (TnI) levels must be interpreted [...] failure, acidosis, acute neurological disease, and persistent tachyarrhythmia. aPTT (07/29/2017 2:46 PM) Component Value Ref Range PTT 29.9 22.5 - 36.0 seconds Specimen Performing Laboratory Blood [address] [address] Prothrombin time/INR (07/29/2017 2:46 PM) Component Value Ref Range Protime 13.9 11.7 - 14.7 seconds INR 1.1 <=5.9 Specimen Performing Laboratory Blood [address] [address] Narrative RECOMMENDED COUMADIN/WARFARIN INR THERAPY RANGES STANDARD DOSE: 2.0 - 3.0 Includes: PROPHYLAXIS for venous thrombosis, systemic embolization; TREATMENT for venous thrombosis and/or pulmonary embolus. HIGH RISK: Target INR is 2.5-3.5 for patients with mechanical heart valves. Hepatic function panel (07/29/2017 2:46 PM) Component Value Ref Range Protein, Total 7.0 6.0 - 8.3 gm/dL Albumin 4.2 3.5 - 5.0 g/dL Total Bilirubin 0.7 0.2 - 1.2 mg/dL Bilirubin, Direct 0.2 0.1 - 0.5 mg/dL Alkaline Phosphatase 105 40 - 150 U/L AST 20 5 - 34 U/L ALT <6 (L) 6 - 55 U/L Specimen Performing Laboratory Blood [address] [address] after 08/10/2016
[2017-08-11 16:09] LABS: Absolute Lymphocytes (CBC) 1.7 K/uL (0.7-4.9); Absolute Monocytes 1.1 K/uL (0.1-1.3); Absolute Neutrophil 11.5 K/uL (1.8-8.0); Basophils % 0.4 % (0-1.3); Eosinophils % 3.6 % (0-4.4); Hematocrit 42.8 % (39.6-49.0); Lymphocytes % 11.3 % (15.3-44.8); MCH 29.3 pg (27.0-35.0); MCV 89.6 fL (80-100); MPV 7.5 fL (7.6-11.3); Monocytes % 7.2 % (3.3-12.3); RBC Red Blood Cell Count 4.77 M/uL (4.33-5.43)
[2017-08-11 16:12] LABS: Protime INR 1.2
[2017-08-11 16:17] LABS: Potassium 4.1 mEq/L (3.6-5.0)
--- NOTE | 2017-08-11 16:22 | RAD REPORT ---
EXAM DESCRIPTION: RAD - Chest Single View - 08/11/2017 4:02 pm CLINICAL HISTORY: Headache, chest pain COMPARISON: 12/25/2010 FINDINGS: Portable technique limits examination quality. The lungs are grossly clear. The heart is upper limit of normal in size. No displaced fractures. IMPRESSION: No acute intrathoracic process suspected.
[2017-08-11 16:24] LABS: Albumin 3.9 g/dL (3.2-5.5); Bilirubin Direct 0.1 mg/dL (0-0.2); Bilirubin Total 0.7 mg/dL (0.3-1.2); CKMB Creatine Kinase MB 2.2 ng/ml (0.3-4.0); Protein, Total 7.3 g/dL (6.0-8.3)
--- NOTE | 2017-08-11 16:26 | RAD REPORT ---
EXAM DESCRIPTION: CT - Head Brain Wo Cont - 08/11/2017 4:07 pm CLINICAL HISTORY: Altered consciousness COMPARISON: 07/29/2017 TECHNIQUE: All CT scans are performed using dose optimization technique as appropriate and may inclu de automated exposure control or mA/KV adjustment according to patient size. FINDINGS: No acute intracranial bleed is seen. The previously noted subdural hematoma along the righ t temporal convexity appears largely resolved. A minimal amount of chronic fluid may be present in th e region.No hydrocephalus is seen.No areas of brain edema or evidence of midline shift. The paranasal sinuses and mastoids are clear. The calvarium is intact. IMPRESSION: No acute intracranial abnormality. The previously noted right-sided temporal subdural h ematoma appears largely resolved.
--- NOTE | 2017-08-11 17:01 | EKG ---
Test Date: 2017-08-11 Test Time: 16:22:47 Director Of Event Marketing: MARISA MEASUREMENT RESULTS: Intervals: Rate: 76 CO: 136 QRSD: 94 QT: 398 QTc: 447 Cotton: P: 39 CO: 136 QRS: 21 T: 29 INTERPRETIVE STATEMENTS: Normal sinus rhythm Normal ECG Compared to ECG 07/29/2017 11:02:40 Sinus bradycardia no longer present Electronically Signed On 08-11-17 17:01:24 CDT by Lance Espinoza
[2017-08-11 17:15] LABS: Urine Bacteria LOADED /HPF (NONE SEEN); Urine Culture Reflex Order REFLEXED; Urine RBC <5 /HPF (NONE SEEN)
[2017-08-11] MEDS ORDERED: CEFTRIAXONE/SWI 1gm 1 GM/10 ML SYR ONE (17:46)
--- NOTE | 2017-08-11 18:49 | ER ---
Nurse's Notes [facility] Name: Osman Foy Age: 67 yrs Sex: Male : 1950 Arrival Date: 08/11/2017 Time: 13:22 Bed 17 Private MD: Tiffanie Hobson C Diagnosis: Urosepsis Presentation: 08/11 13:33 Presenting complaint: states: Instructed by neurologist to come to this ER and aj have follow up CT done. reports that patient has not been improving since his head bleed. Transition of care: patient was not received from another setting of care. Onset of symptoms was July 29, 2017. Initial Sepsis Screen: Does the patient meet any 2 criteria? No. Patient's initial sepsis screen is negative. Does the patient have a suspected source of infection? No. Patient's initial sepsis screen is negative. Care prior to arrival: None. 13:33 Method Of Arrival: Wheelchair aj 13:33 Acuity: SHELIA 4 aj 15:21 Acuity: SHELIA 3 iw Triage Assessment: 13:36 General: Appears in no apparent distress. comfortable, Behavior is calm, cooperative, aj appropriate for age. Pain: Denies pain. Neuro: Level of Consciousness is awake, alert, obeys commands, Oriented to person, place, time, situation. Respiratory: Airway is patent Respiratory effort is even, unlabored, Respiratory pattern is regular, symmetrical. Derm: Skin is intact, is healthy with good turgor, Skin is pink, warm \T\ dry. normal. Historical: - Allergies: 13:36 No Known Allergies; aj - Home Meds: 13:36 aspirin 81 mg Oral TbEC 1 tab once daily [Active]; carbidopa-levodopa 25-100 mg Oral aj TbER 1 tab 3 times per day [Active]; finasteride 5 mg Oral tab 1 tab once daily [Active]; memantine 5 mg Oral tab 2 times per day [Active]; Myrbetriq 50 mg Oral Tb24 1 tab once daily [Active]; rabeprazole 20 mg Oral TbEC 1 tab every 12 hours [Active]; rivastigmine tartrate 4.5 mg Oral cap 1 cap 2 times per day [Active]; sertraline 100 mg Oral tab 1 tab once daily [Active]; Stool Softener Oral [Active]; tamsulosin 0.4 mg Oral cp24 1 cap twice a day [Active]; Vesicare 10 mg Oral tab 1 tab once daily [Active]; - PMHx: 13:36 Parkinsons; aj - PSHx: 13:36 Cholecystectomy; Vasectomy; Appendectomy; aj - Immunization history:: Adult Immunizations up to date. - Social history:: Smoking status: Patient/guardian denies using tobacco. Screenin:16 Abuse screen: Denies threats or abuse. Nutritional screening: No deficits noted. em Tuberculosis screening: No symptoms or risk factors identified. Fall Risk None identified. Assessment: 15:39 General: Appears uncomfortable, Behavior is flat. Pain: Denies pain. Neuro: Level of em Consciousness is awake, alert, obeys commands, Oriented to person, place, time, Weakness Speech is normal. Cardiovascular: Capillary refill < 3 seconds Patient's skin is warm and dry. Respiratory: Airway is patent Respiratory effort is even, unlabored, Respiratory pattern is regular, symmetrical. GI: Abdomen is flat. : No signs and/or symptoms were reported regarding the genitourinary system. EENT: No signs and/or symptoms were reported regarding the EENT system. Derm: Skin is intact, Skin is pink, warm \T\ dry. Musculoskeletal: Range of motion: intact in all extremities. 16:00 Reassessment: Patient appears in no apparent distress at this time. I agree with the iw above assessment by Chris Whitehead LVN. 16:40 Reassessment: Patient appears in no apparent distress at this time. Patient and/or em family updated on plan of care and expected duration. Pain level reassessed. Patient is alert, oriented x 3, equal unlabored respirations, skin warm/dry/pink. 17:30 Reassessment: Patient appears in no apparent distress at this time. Patient and/or em family updated on plan of care and expected duration. Pain level reassessed. Patient is alert, oriented x 3, equal unlabored respirations, skin warm/dry/pink. 18:41 Reassessment: Patient appears in no apparent distress at this time. Patient and/or em family updated on plan of care and expected duration. Pain level reassessed. Patient is alert, oriented x 3, equal unlabored respirations, skin warm/dry/pink. Patient states feeling better. Patient states symptoms have improved. 20:31 Reassessment: Report called to Monika Enamorado RN, SBAR used, all questions answered. mb3 Vital Signs: 13:36 BP 105 / 54; Pulse 73; Resp 16; Temp 97.9; Pulse Ox 95% on R/A; Weight 88.45 kg; Height aj 5 ft. 10 in. (177.80 cm); 16:32 BP 166 / 83; Pulse 76; Resp 23; Pulse Ox 97% on R/A; mh5 17:28 BP 169 / 85; Pulse 79; Resp 21; Pulse Ox 95% on R/A; mh5 18:34 BP 173 / 82; Pulse 73; Resp 20; Pulse Ox 99% on R/A; em 20:18 BP 171 / 89; Pulse 83; Resp 16; Pulse Ox 97% on R/A; mb3 13:36 Body Mass Index 27.98 (88.45 kg, 177.80 cm) ED Course: 13:22 Patient arrived in ED. mr 13:22 Tiffanie Hobson MD is Private Physician. mr 13:35 Triage completed. aj 13:36 Arm band placed on right wrist. Patient placed in waiting room, Patient notified of wait time. 15:02 Flavio Stratton, JOSE is Primary Nurse. mb3 15:04 Jesse Ash, FAVIOLA is PHCP. pm1 15:04 Erich Sierra MD is Attending Physician. pm1 15:36 Radiology exam delayed due to Nurse getting line/drawing blood at this time. nj 15:58 Initial lab(s) drawn, by la, sent to lab. Inserted saline lock: 22 gauge in right mh5 antecubital area, using aseptic technique. Blood collected. 16:01 X-ray completed. Portable x-ray completed in exam room. Patient tolerated procedure ag1 well. 16:02 XRAY Chest (1 view) In Process Unspecified. EDMS 16:[address] via stretcher. nj 16:06 CT completed. Patient tolerated procedure well. Patient moved back from CT. nj 16:07 CT Head Brain wo Cont In Process Unspecified. EDMS 16:08 CT completed. Patient tolerated procedure well. Patient moved back from CT. nj 18:41 No provider procedures requiring assistance completed. em 18:47 Tiffanie Hobson MD is Hospitalizing Provider. pm1 18:54 Patient has correct armband on for positive identification. Placed in gown. Bed in low em position. Call light in reach. 19:22 Urine Microscopic Only Sent. mb3 20:32 Patient admitted, IV remains in place. mb3 Administered Medications: 18:00 Drug: Rocephin - (cefTRIAXone) 1 grams Route: IVPB; Infused Over: 30 mins; Site: right iw antecubital; 18:53 Follow up: Response: No adverse reaction; IV Status: Completed infusion em Outcome: 18:49 Decision to Hospitalize by Provider. pm1 20:32 Admitted to Tele accompanied by tech, family with patient, via wheelchair, room 411, mb3 with chart, Report called to Monika Enamorado RN 20:32 Condition: stable 20:32 Instructed on the need for admit. 20:37 Patient left the ED. mb3 Signatures: Dispatcher [employer] Pham Leon, RN Diana Trinidad mr Whitehead, Chris, EXPEDITION SUPERVISOR EXPEDITION SUPERVISOR Julia Borrero RN RN Manju Mejia ag1 Jesse Ash, INTERNAL WHOLESALER INTERNAL WHOLESALER pm1 Kaiden Chase Maria [facility] Flavio Stratton RN RN mb3 Corrections: (The following items were deleted from the chart) 13:38 13:33 Presenting complaint: states: Instructed to come to this ER and have follow aj up CT done by neurologist. reports that patient has not been improving since his head bleed. aj
--- NOTE | 2017-08-11 18:49 | EDPHYS ---
Physician Documentation [facility] Name: Osman Foy Age: 67 yrs Sex: Male : 1950 Arrival Date: 08/11/2017 Time: 13:22 Bed 17 Private MD: Tiffanie Hobson C ED Physician Erich Sierra HPI: 08/11 16:08 This 67 yrs old Male presents to ER via Wheelchair with complaints of Follow pm1 Up X-Ray/CT. 16:08 The patient presents with generalized weakness. Onset: The symptoms/episode pm1 began/occurred 3 day(s) ago. Patient was seen here in the ER on 07/29/2017 and transferred due to 3 mm subdural bleed. Patient had a fall 11 days prior to 07/29 and presented with complaints of a headache on that day. Patient was released last week. Since discharge family reports that he was doing better but for the past 3 days has had some generalized weakness. Historical: - Allergies: 13:36 No Known Allergies; aj - Home Meds: 13:36 aspirin 81 mg Oral TbEC 1 tab once daily [Active]; carbidopa-levodopa 25-100 mg Oral aj TbER 1 tab 3 times per day [Active]; finasteride 5 mg Oral tab 1 tab once daily [Active]; memantine 5 mg Oral tab 2 times per day [Active]; Myrbetriq 50 mg Oral Tb24 1 tab once daily [Active]; rabeprazole 20 mg Oral TbEC 1 tab every 12 hours [Active]; rivastigmine tartrate 4.5 mg Oral cap 1 cap 2 times per day [Active]; sertraline 100 mg Oral tab 1 tab once daily [Active]; Stool Softener Oral [Active]; tamsulosin 0.4 mg Oral cp24 1 cap twice a day [Active]; Vesicare 10 mg Oral tab 1 tab once daily [Active]; - PMHx: 13:36 Parkinsons; aj - PSHx: 13:36 Cholecystectomy; Vasectomy; Appendectomy; aj - Immunization history:: Adult Immunizations up to date. - Social history:: Smoking status: Patient/guardian denies using tobacco. ROS: 16:08 Constitutional: Negative for fever, chills, and weight loss, Eyes: Negative for injury, pm1 pain, redness, and discharge, ENT: Negative for injury, pain, and discharge, Neck: Negative for injury, pain, and swelling, Cardiovascular: Negative for chest pain, palpitations, and edema, Respiratory: Negative for shortness of breath, cough, wheezing, and pleuritic chest pain, Abdomen/GI: Negative for abdominal pain, nausea, vomiting, diarrhea, and constipation, Back: Negative for injury and pain, : Negative for injury, bleeding, discharge, and swelling, MS/Extremity: Negative for injury and deformity, Skin: Negative for injury, rash, and discoloration. 16:08 Neuro: Positive for weakness, Negative for altered mental status, dizziness, headache, seizure activity, speech changes, syncope, near syncope, visual changes. 18:05 : Positive for burning with urination, for 1 week. pm1 Exam: 16:08 Constitutional: This is a well developed, well nourished patient who is awake, alert, pm1 and in no acute distress. Head/Face: Normocephalic, atraumatic. Eyes: Pupils equal round and reactive to light, extra-ocular motions intact. Lids and lashes normal. Conjunctiva and sclera are non-icteric and not injected. Cornea within normal limits. Periorbital areas with no swelling, redness, or edema. ENT: Nares patent. No nasal discharge, no septal abnormalities noted. Tympanic membranes are normal and external auditory canals are clear. Oropharynx with no redness, swelling, or masses, exudates, or evidence of obstruction, uvula midline. Mucous membranes moist. Neck: Trachea midline, no thyromegaly or masses palpated, and no cervical lymphadenopathy. Supple, full range of motion without nuchal rigidity, or vertebral point tenderness. No Meningismus. Chest/axilla: Normal chest wall appearance and motion. Nontender with no deformity. No lesions are appreciated. Cardiovascular: Regular rate and rhythm with a normal S1 and S2. No gallops, murmurs, or rubs. Normal PMI, no JVD. No pulse deficits. 16:08 Respiratory: Lungs have equal breath sounds bilaterally, clear to auscultation and percussion. No rales, rhonchi or wheezes noted. No increased work of breathing, no retractions or nasal flaring. Abdomen/GI: Soft, non-tender, with normal bowel sounds. No distension or tympany. No guarding or rebound. No evidence of tenderness throughout. Back: No spinal tenderness. No costovertebral tenderness. Full range of motion. Skin: Warm, dry with normal turgor. Normal color with no rashes, no lesions, and no evidence of cellulitis. MS/ Extremity: Pulses equal, no cyanosis. Neurovascular intact. Full, normal range of motion. 16:08 ECG was reviewed by the Attending Physician. NSR 16:08 Neuro: Orientation: is normal, Mentation: is normal, Cranial nerves: CN II- XII are normal as tested, Cerebellar function: normal finger to nose testing, Motor: moves all fours, Sensation: is normal, no obvious gross deficits, Abnormal movements: shuffling gait. Vital Signs: 13:36 BP 105 / 54; Pulse 73; Resp 16; Temp 97.9; Pulse Ox 95% on R/A; Weight 88.45 kg; Height aj 5 ft. 10 in. (177.80 cm); 16:32 BP 166 / 83; Pulse 76; Resp 23; Pulse Ox 97% on R/A; mh5 17:28 BP 169 / 85; Pulse 79; Resp 21; Pulse Ox 95% on R/A; mh5 18:34 BP 173 / 82; Pulse 73; Resp 20; Pulse Ox 99% on R/A; em 20:18 BP 171 / 89; Pulse 83; Resp 16; Pulse Ox 97% on R/A; mb3 13:36 Body Mass Index 27.98 (88.45 kg, 177.80 cm) aj MDM: 15:05 Patient medically screened. pm1 18:46 Data reviewed: vital signs. Data interpreted: Pulse oximetry: on room air is 95 %. pm1 Interpretation: normal. Counseling: I had a detailed discussion with the patient and/or guardian regarding: the historical points, exam findings, and any diagnostic results supporting the discharge/admit diagnosis, lab results, radiology results, the need for further work-up and treatment in the hospital. 20:30 Physician consultation: Maninder Zimmer MD was contacted at 20:42, regarding admission, pm1 patient's condition, Consult with Dr. Zimmer who is covering for Dr. Hobson. 08/11 15:16 Order name: Basic Metabolic Panel; Complete Time: 16:24 pm1 08/11 15:16 Order name: BNP; Complete Time: 16:25 pm1 11 15:16 Order name: CBC with Diff; Complete Time: 16:23 pm08/11 15:16 Order name: Ckmb; Complete Time: 16:25 pm08/11 15:16 Order name: CPK; Complete Time: 16:25 pm08/11 15:16 Order name: LFT's; Complete Time: 16:24 pm08/11 15:16 Order name: Magnesium; Complete Time: 16:25 pm08/11 15:16 Order name: PT-INR; Complete Time: 16:23 pm08/11 15:16 Order name: Ptt, Activated; Complete Time: 16:23 pm08/11 15:16 Order name: Troponin (emerg Dept Use Only); Complete Time: 16:23 pm08/11 16:24 Order name: Urine Microscopic Only 1 08/11 16:24 Order name: Urine Microscopic Only; Complete Time: 17:27 EDND 08/11 16:32 Order name: Procalcitonin; Complete Time: 17:43 ph 08/11 17:16 Order name: Urine Culture [facility] 08/11 15:16 Order name: XRAY Chest (1 view); Complete Time: 16:23 pm08/11 15:16 Order name: EKG; Complete Time: 15:16 pm08/11 15:16 Order name: Cardiac monitoring; Complete Time: 15:21 pm08/11 15:16 Order name: EKG - Nurse/Tech; Complete Time: 16:32 pm08/11 15:16 Order name: IV Saline Lock; Complete Time: 16:16 pm08/11 15:16 Order name: Labs collected and sent; Complete Time: 16:16 pm08/11 15:16 Order name: O2 Per Protocol; Complete Time: 16:16 pm08/11 15:16 Order name: CT Head Brain wo Cont; Complete Time: 16:27 pm1 08/11 17:43 Order name: Blood Culture Adult (2) pm1 08/11 18:38 Order name: Urine Dipstick--Ancillary (enter results); Complete Time: 19:11 ag 08/11 19:28 Order name: Regular [facility] 08/11 19:28 Order name: Basic Metabolic Panel [facility] 08/11 19:28 Order name: Basic Metabolic Panel [facility] 08/11 19:28 Order name: CBC with Automated Diff EDND 08/11 19:28 Order name: CBC with Automated Diff EDMS 08/11 15:16 Order name: O2 Sat Monitoring; Complete Time: 16:16 pm1 Administered Medications: 18:00 Drug: Rocephin - (cefTRIAXone) 1 grams Route: IVPB; Infused Over: 30 mins; Site: right iw antecubital; 18:53 Follow up: Response: No adverse reaction; IV Status: Completed infusion em Disposition: 08/11/17 18:49 Hospitalization ordered by Tiffanie Hobson for Inpatient Admission. Preliminary diagnosis is Urosepsis. - Bed requested for Telemetry/MedSurg (Inpatient). - Status is Inpatient Admission. mb3 - Condition is Stable. - Problem is new. - Symptoms have improved. UTI on Admission? Yes Addendum: 08/14/2017 08:52 Co-signature as Attending Physician, Erich Sierra MD I agree with the assessment and c beasley plan of care. Signatures: Dispatcher [facility] Franca Navarro RN RN mw Myers, Amanda, RN RN aj Anderson, Corey, MD MD cha Williams, Irene, RN RN iw Marinas, Patrick, FACILITIES ENGINEER FACILITIES ENGINEER pm1 Flavio Stratton RN RN mb3 Chris Whitehead CRIME LAB TECHNICIAN em Corrections: (The following items were deleted from the chart) 08/11 19:50 18:49 Hospitalization Ordered by A Joce RUSSELL for Inpatient Admission. Preliminary mw diagnosis is Urinary tract infection, site not specified. Bed requested for Telemetry/MedSurg (Inpatient). Status is Inpatient Admission. Condition is Stable. Problem is new. Symptoms have improved. UTI on Admission? Yes. pm1 20:28 19:50 08/11/2017 18:49 Hospitalization Ordered by A Joce RUSSELL for Inpatient Admission. pm1 Preliminary diagnosis is Urinary tract infection, site not specified. Bed requested for Telemetry/MedSurg (Inpatient). Status is Inpatient Admission. Condition is Stable. Problem is new. Symptoms have improved. UTI on Admission? Yes. mw 20:37 20:28 08/11/2017 18:49 Hospitalization Ordered by A Joce URSSELL for Inpatient Admission. mb3 Preliminary diagnosis is Urosepsis. Bed requested for Telemetry/MedSurg (Inpatient). Status is Inpatient Admission. Condition is Stable. Problem is new. Symptoms have improved. UTI on Admission? Yes. pm1
[2017-08-11 18:50] LABS: Urine Blood TRACE (NEG); Urine Glucose NEGATIVE (NEG); Urine Protein TRACE (NEG); Urine Specific Gravity 1.015 (1.005-1.030); Urine pH 5.5 (5.0-7.0)
[2017-08-11] MEDS ORDERED: ACETAMINOPHEN 500 MG TAB PO PRN (19:23)
[2017-08-11] MEDS ORDERED: CEFTRIAXONE 1 GM/NS 50 ML 1 GM/50 ML BAG IV SCH (21:00)
[2017-08-11 21:54] VITALS: BMI 27.9
[2017-08-11] MEDS: NA CHLORIDE 0.9% 1,000 ML IV SCH (21:55)
[2017-08-12 05:24] LABS: Absolute Lymphocytes (CBC) 1.8 K/uL (0.7-4.9); Absolute Neutrophil 10.4 K/uL (1.8-8.0); Basophils % 0.6 % (0-1.3); Eosinophils % 6.5 % (0-4.4); Hematocrit 38.5 % (39.6-49.0); Lymphocytes % 12.5 % (15.3-44.8); MCH 29.4 pg (27.0-35.0); MCV 89.3 fL (80-100); MPV 7.9 fL (7.6-11.3); RBC Red Blood Cell Count 4.32 M/uL (4.33-5.43)
[2017-08-12 05:45] LABS: Potassium 3.8 mEq/L (3.6-5.0)
[2017-08-12] MEDS: NA CHLORIDE 0.9% 1,000 ML IV SCH ×2 (06:04→11:40)
[2017-08-12] MEDS: CEFTRIAXONE/SWI 1gm 1 GM/10 ML SYR IV SCH ×2 (08:37→20:52)
[2017-08-12] MEDS: Levofloxacin500mg IV 500 MG/100 ML BAG IV SCH (11:40)
[2017-08-12] MEDS: CARBIDOPA/LEVODOPA 25/100 TAB PO SCH ×2 (14:00→20:51)
[2017-08-12] MEDS: PANTOPRAZOLE 40MG TABLET PO SCH (16:02)
[2017-08-12] MEDS: MEMANTINE HCL 10 MG TABLET PO SCH (20:51)
[2017-08-12] MEDS: TAMSULOSIN 0.4 MG SR CAP PO SCH (20:51)
[2017-08-12] MEDS ORDERED: HOME MED 1 EA UNK (Rabeprazole Sodium [Aciphex] 20 MG) PO SCH (21:00)
--- NOTE | 2017-08-13 00:25 | HP ---
Date of Admission: 08/12/2017 Chief Complaint: Weakness and confusion. History Of Present Illness: A 67-year-old male patient, who fell down at home later part of last month and after about 5 days or so he came to emergency room as he was having some headache and on 07/29/2017, he was evaluated in our emergency room. CAT scan of the brain showed subdural hematoma and he was transferred to [place]. The patient was kept in the hospital for about 4 to 5 days. No intervention or surgery was done and then he was released to go home. He was going through home health, home physical therapy, and was recovering well until last few days. His felt like that he was not doing quite as well. He was having generalized weakness and some confusion, so she decided to bring him to emergency room yesterday. After he was evaluated in the ER, he was admitted to the hospital with urinary tract infection problem. When I saw him today and son they were present at bedside. Allergies: NO KNOWN ALLERGIES. Medications: List reviewed. Review of Systems: Constitutional: As mentioned above. HVAC SALES ENGINEER: As mentioned above. All other systems reviewed and negative. Past Medical History: Significant for Parkinson disease, benign prostatic hypertrophy, and overactive bladder. Past Surgical History: Cholecystectomy, vasectomy, appendectomy. Social History: Negative for smoking or alcohol use. Family History: Not pertinent. Physical Examination: Vital Signs: Temperature 97.4, pulse 66, respiratory rate 16, and blood pressure 140/73. His height 5 feet 10 inches. Weight 195 pounds. General: The patient appears sleepier than usual and weaker than usual. HEENT: Head atraumatic, normocephalic. Conjunctivae nonerythematous. Sclerae white. Mouth, no thrush or edema noted. Ears/Nose, no mass, lesion, discharge noted. Neck: Supple. No JVD, lymph nodes, bruit, thyromegaly noted. Lungs: Bilateral good equal air entry. Clear to auscultation. No rhonchi. No rales. Heart: Normal heart sounds, no murmur or gallop. Abdomen: Soft, bowel sounds normal. No guarding, rigidity, tenderness, mass, hepatosplenomegaly, distention, or bruit noted. Extremities: No leg edema. No calf tenderness. Skin: No rash, ulcer, cellulitis. Lymphatics: No lymph node enlargement in neck, supraclavicular, infraclavicular region. Neuro: No focal neurological deficit. Chest: Unremarkable. External Genitalia: Deferred. Rectal: Deferred. Laboratory Data: Yesterday white count 14.8, hemoglobin 14, platelets 257. Today white count 14.2, hemoglobin 12.7, platelets 250. Yesterday sodium 140, potassium 4.1, chloride 104, bicarb 28, BUN 19, creatinine 1.28, glucose 124. Liver function tests unremarkable. Troponin less than 0.03. BNP 115, procalcitonin 0.40. Today sodium 139, potassium 3.8, chloride 107, bicarb 27, BUN 16, creatinine 1.13, glucose 140. Urinalysis positive for nitrite, 1+ esterase. WBC TNTC, bacteria loaded. EKG, normal sinus rhythm, normal EKG. Chest x-ray, no acute intrathoracic changes. CAT scan of the brain done in the emergency room, no acute change. Impression: 1. Urinary tract infection, rule out sepsis 2. Volume depletion. 3. Overactive bladder. 4. Benign prostatic hypertrophy. 5. Parkinson disease. Plan: We will go ahead and admit the patient to hospital for further evaluation and management of this problem. The patient is appropriate for inpatient and is expected to spend 2 midnights in the hospital. We will continue IV fluid. The patient is on IV antibiotic, ceftriaxone and I will go ahead and add Levaquin. Home medications will be continued per order. SCD will be ordered for DVT prophylaxis. Fall precaution was ordered. Consult Physical Therapy to help ambulate the patient and we will see him tomorrow for followup. We did talk about advance directives and the patient and the patient' s family member they will discuss it and once they decide about the advance directive final decision they will let me know. The patient did report some burning sensation on urination after he came to emergency room, but he did not report any such complaints to . GARRETT/RENAN Voice ID: [id number]
[2017-08-13] MEDS: NA CHLORIDE 0.9% 1,000 ML IV SCH (03:10)
[2017-08-13] MEDS: CEFTRIAXONE/SWI 1gm 1 GM/10 ML SYR IV SCH (08:50)
[2017-08-13] MEDS: TAMSULOSIN 0.4 MG SR CAP PO SCH (08:50)
[2017-08-13] MEDS: CARBIDOPA/LEVODOPA 25/100 TAB PO SCH (08:51)
[2017-08-13] MEDS: PANTOPRAZOLE 40MG TABLET PO SCH (08:51)
[2017-08-13] MEDS: MEMANTINE HCL 10 MG TABLET PO SCH (08:51)
[2017-08-13] MEDS ORDERED: SERTRALINE HCL 100 MG TAB PO SCH (09:00)
[2017-08-13] MEDS ORDERED: RIVASTIGMINE 4.6 MG/24 HR PATCH TD SCH (09:00)
[2017-08-13] MEDS ORDERED: SOLIFENACIN SUCCIN 5 MG TAB PO SCH (09:00)
[2017-08-13] MEDS ORDERED: FINASTERIDE 5 MG TAB PO SCH (09:00)
[2017-08-13 09:03] VITALS: O2SAT 93
[2017-08-13 10:09] LABS: Absolute Lymphocytes (CBC) 1.3 K/uL (0.7-4.9); Absolute Monocytes 0.4 K/uL (0.1-1.3); Basophils % 0.7 % (0-1.3); Eosinophils % 8.1 % (0-4.4); Hematocrit 41.1 % (39.6-49.0); Lymphocytes % 12.6 % (15.3-44.8); MCH 29.2 pg (27.0-35.0); MCV 90.3 fL (80-100); MPV 7.6 fL (7.6-11.3); Monocytes % 3.7 % (3.3-12.3); RBC Red Blood Cell Count 4.55 M/uL (4.33-5.43)
[2017-08-13 10:18] LABS: Potassium 4.1 mEq/L (3.6-5.0)
[2017-08-13 10:19] LABS: Magnesium 1.8 mg/dL (1.8-2.5)
[2017-08-13] MEDS: Levofloxacin500mg IV 500 MG/100 ML BAG IV SCH (10:40)
[2017-08-13 17:40] VITALS: BP 94/52; TEMP 97.7
--- NOTE | 2017-08-13 20:43 | HP ---
Date of Admission: 08/11/2017 DICTATION ENDS HERE. GARRETT/MODL Voice ID: [id number]
--- NOTE | 2017-08-13 20:43 | DS ---
Date of Discharge: 08/13/2017 Disposition: Discharged to go home. Physical Examination: HEENT: Unremarkable. Lungs: Clear to auscultation. Heart: Sounds normal. Abdomen: Soft. Bowel sounds normal. No guarding, rigidity, tenderness, or distention. Extremities: No leg edema. Laboratory Data: Initial white count when he came into the hospital day before yesterday was 14.8, h emoglobin 14, platelets 257. Today white count 10.7, hemoglobin 13.3, platelets 298. Initial sodium 140, potassium 4.1, chloride 104, bicarb 28, BUN 19, creatinine 1.28, glucose 124. Liver function t ests unremarkable. Troponin less than 0.03. Procalcitonin 0.40. Today, sodium 138, potassium 4.1, chloride 109, bicarb 23, BUN 14, creatinine 1.07, glucose 202, magnesium 1.8. Urine culture growing Citrobacter. Blood culture negative. Discharge Medication/instruction: 1.Continue all prior home medications. 2.Take Levaquin 500 mg p.o. daily for 1 week. 3.Follow up at my office in 2 weeks. Hospital Course: A 67-year-old male patient, who was admitted to the hospital with weakness and conf usion. Please see dictated H and P for more information. [place] [facility] [place], he was admitted to the hospital with urinary tract infection. His white count was eleva nicole urinalysis was abnormal consistent with urinary tract infection. CAT scan of the head was negati ve for any acute intracranial changes. End of last month, the patient had a CAT scan of the head don e, which had shown a subdural hematoma and on current CAT scan, that has resolved. Chest x-ray was n egative for any acute infiltrate. The patient was treated with IV Rocephin and IV Levaquin was added yesterday. Urine culture came back today growing Citrobacter, and it is sensitive to both ceftriaxo ne as well as Levaquin that the patient has received during this hospitalization. Home medications w ere continued. Physical therapy was consulted. The patient participated with Physical Therapy start ed to ambulate well. Today, he was found sitting in the chair with his in the room and the jeanmarie ent's condition has improved. The patient and patient's they both feel comfortable going home. The patient is doing much better and his confusion and weakness problem has resolved. Final Diagnoses: 1.Urinary tract infection. 2.Volume depletion. 3.Overactive bladder. 4.Benign prostatic hypertrophy. 5.Parkinson disease. GARRETT/MODL Voice ID: [id number] Report ID: [id number]
== END 2017-08-13 13:29 | disposition home or self-care (01) | DRG 690 ==
LOC: ER 13:19 → ERHOLD 19:32 → 4TH 20:10
PROVIDERS: ADMIT Internal Medicine; ATTEND Internal Medicine
DX: N39.0 Urinary tract infection, site not specified (principal); E86.9 Volume depletion, unspecified; N40.1 Benign prostatic hyperplasia with lower urinary tract symptoms; N32.81 Overactive bladder; G20 Parkinson's disease
CPT/HCPCS: 36415; 70450; 71045; 80048; 80076; 81003; 81015; 82550; 82553; 83735; 83880; 84145; 84484; 85025; 85610; 85730; 87040; 87077; 87086; 87088; 87186; 93005; 96365; 97163; 99285; J0696; J7030

== ENCOUNTER 2021-06-04 11:46 | Emergency (ER) | payer OTHER ==
--- OUTSIDE RECORDS SUMMARY | 2021-06-04 11:51 | XMS REPORT | Continuity of Care Document ---
:1950 Author Organization [facility] t Address [address] [place] [address] [address] [place] [address] Care Team Providers Name Role Phone Maryana Hobson MD Primary Care Physician Alma RUSSELL Attending Clinician Doctor Unassigned, Name Attending Clinician Unavailable Don Nicole MD Attending Clinician Cesilia RUSSELL Attending Clinician KAYCE LIZAMA Attending Clinician Unavailable Cesilia RUSSELL Admitting Clinician CESILIA Admitting Clinician Unavailable KAYCE LIZAMA Admitting Clinician Unavailable Payers Payer Name Policy Type Policy Number Effective Date Expiration Date S ource Problems Condition Condition Condition Status Onset Resolution Last Treating Co mments Source Name Details Category Date Date Treatment Clinician Date RBD (REM RBD (REM Disease Active [facility] 3 Co [facility]lege disorder) disorder) 00:00: of 00 Medicin e 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 10-05 Colleg e (HCCode) (HCCode) 00:00: of 00 Medicin e 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 [facility] impairment impairment 00:00: of ) with ) with 00 Medicin memory memory e loss loss Dyskinesia Dyskinesia Disease Active [facility] , , 3-02 College drug-induc drug-induc 00:00: of ed ed 00 Medicin e Syncope Syncope Disease Active 2013-04 [facility] 2-17 College 00:00: of 00 Medicin e Parkinson Parkinson Disease Active [place] [facility] disease disease -20 College (HCCode) (HCCode) 00:00: of 00 Medicin e Depression Depression Disease Active [facility] 12-21 College 00:00: of 00 Medicin e Allergies, Adverse Reactions, Alerts Allergy Allergy Status Severity Reaction(s) Onset Inactive Treating Comm ents Source Name Type Date Date Clinician NO KNOWN Drug Active [facility] ALLERGIE Class ity of S [facility] Social History Social Habit Start Date Stop Date Quantity Comments Source Sex Assigned At Universit y of [facility] Alcohol intake 2020-12-28 2020-12-28 Current [facility] Col lege of 00:00:00 00:00:00 non-drinker of Medicine alcohol (finding) Tobacco use and 2010-12-09 2010-12-09 Never used [facility] Co llege of exposure 00:00:00 00:00:00 Medicine Smoking Status Start Date Stop Date Source Never smoker [facility] Medications Ordered Filled Start Stop Current Ordering Indication Dosage Frequency Signature Comments Components Source Medication Medication Date Date Medication? Clinician (SIG) Name Name rabeprazole Yes 1{tbl} Take 1 Tab [facility] (ACIPHEX) 9-27 by mouth 2 [facility] 20 MG 13:52: times of tablet 25 daily. Medicin e Docusate Yes [id number] Take 3 [place] [facility] Calcium 9-27 capsules [place] (STOOL 13:52: by mouth of SOFTENER 25 nightly. Medicin OR) e aspirin 81 Yes 81mg Take 81 mg [facility] MG tablet - by mouth Colleg e 13:52: daily. of 25 Medicin e finasteride Yes 5mg Take 5 mg [facility] (PROSCAR) 5 9-27 by mouth [place]anny e[place] MG tablet 13:52: daily. of 25 Medicin e amlodipine Yes 2.5mg Take 2.5 [facility] (NORVASC) 9-27 mg by College 2.5 MG 13:52: mouth of tablet 25 daily. Medicin e Metoprolol Yes 50mg Take 50 mg [facility] Succinate - by mouth Colleg e 50 MG CS24 13:52: two times of 25 daily. Medicin e Silodosin 8 Yes 8mg Take 8 mg [facility] MG CAPS - by mouth [place] 13:52: nightly. of 25 Medicin e TAMSULOSIN Yes 10mg Take 10 mg [facility] HCL OR 9-27 by mouth. [place] 13:52: 1 cap qhs of 25 Medicin e cetirizine, Yes 10mg Take 10 mg Avinash ZYRTEC, - by mouth [place] (ZYRTEC 13:52: every of ALLERGY) 10 25 evening. Medi janis MG tablet e Ascorbic Yes 500mg Take 500 [facility] Acid 9-27 mg by [place] (VITAMIN C) 13:52: mouth. of 500 MG CAPS 25 Medicin e Zinc 100 MG Yes Take by [facility] TABS 12-28 mouth. [place] 13:52: of 25 Medicin e rabeprazole Yes 1{tbl} Take 1 Tab Avinash (ACIPHEX) 12-28 by mouth 2 [place] 20 MG 13:52: times of tablet 25 daily. Medicin e Docusate Yes [id number] Take 3 [place] [facility] Calcium - capsules [place] (STOOL 13:52: by mouth of SOFTENER 25 nightly. Medicin OR) e aspirin 81 Yes 81mg Take 81 mg [facility] MG tablet 12-28 by mouth Colleg e 13:52: daily. of 25 Medicin e finasteride Yes 5mg Take 5 mg [facility] (PROSCAR) 5 12-28 by mouth [place]anny e[place] MG tablet 13:52: daily. of 25 Medicin e amlodipine Yes 2.5mg Take 2.5 [facility] (NORVASC) -27 mg by College 2.5 MG 13:52: mouth of tablet 25 daily. Medicin e Metoprolol Yes 50mg Take 50 mg [facility] Succinate 9-27 by mouth Colleg e 50 MG CS24 13:52: two times of 25 daily. Medicin e Silodosin 8 Yes 8mg Take 8 mg [facility] MG CAPS 12-28 by mouth [place] 13:52: nightly. of 25 Medicin e TAMSULOSIN Yes 10mg Take 10 mg [facility] HCL OR 9-27 by mouth. [place] 13:52: 1 cap qhs of 25 Medicin e cetirizine, Yes 10mg Take 10 mg Avinash ZYRTEC, 9-27 by mouth [place] (ZYRTEC 13:52: every of ALLERGY) 10 25 evening. Medi janis MG tablet e Ascorbic Yes 500mg Take 500 [facility] Acid 9-27 mg by [place] (VITAMIN C) 13:52: mouth. of 500 MG CAPS 25 Medicin e Zinc 100 MG Yes Take by Mitch parkinsonor TABS -27 mouth. [place] 13:52: of 25 Medicin e rivastigmin Yes TAKE 2 [facility] (EXELON) 9-16 CAPSULES Colle ge 3 MG 00:00: BY MOUTH of capsule 00 TWICE A Medicin DAY e rivastigmin Yes TAKE 2 [facility] (EXELON) 9-16 CAPSULES Colle ge 3 MG 00:00: BY MOUTH of capsule 00 TWICE A Medicin DAY e memantine Yes TAKE 1 [facility] (NAMENDA) 9-09 TABLET BY Colle ge 10 MG 00:00: MOUTH of tablet 00 TWICE A Medicin DAY e memantine Yes TAKE 1 [facility] (NAMENDA) 9-09 TABLET BY Colle ge 10 MG 00:00: MOUTH of tablet 00 TWICE A Medicin DAY e sertraline Yes TAKE 1 [facility] (ZOLOFT) 7-23 TABLET BY Colleg e 100 MG 00:00: MOUTH of tablet 00 EVERY DAY Medicin e sertraline Yes TAKE 1 [facility] (ZOLOFT) 7-23 TABLET BY Colleg e 100 MG 00:00: MOUTH of tablet 00 EVERY DAY Medicin e midodrine Yes 2.5mg Take 1 [facility] (PROAMATINE 6-18 Tablet by Col lege ) 2.5 MG 00:00: mouth two of tablet 00 times Medicin daily. e midodrine Yes 2.5mg Take 1 [facility] (PROAMATINE 6-18 Tablet by Col lege ) 2.5 MG 00:00: mouth two of tablet 00 times Medicin daily. e sertraline Yes TAKE 1 [facility] (ZOLOFT) 1-21 TABLET BY Colleg e 100 MG 00:00: MOUTH of tablet 00 EVERY DAY Medicin e clonazepam 2019-04 Yes Can take [place] [facility] (KLONOPIN) 2-30 either College 0.5 MG 00:00: half or 1 of tablet 00 tab at Medicin bedtime e for REM sleep behavior disorder(d james/kick ing). If this dose not enough for symptom control, can use 2 tabs at bedtime. clonazepam 2019-04 Yes Can take [place] [facility] (KLONOPIN) 2-30 either College 0.5 MG 00:00: half or 1 of tablet 00 tab at Medicin bedtime e for REM sleep behavior disorder(d james/kick ing). If this dose not enough for symptom control, can use 2 tabs at bedtime. clonazepam 2019-04 Yes Can take [place] [facility] (KLONOPIN) 2-30 either College 0.5 MG 00:00: half or 1 of tablet 00 tab at Medicin bedtime e for REM sleep behavior disorder(d james/kick ing). If this dose not enough for symptom control, can use 2 tabs at bedtime. memantine 2019-04 Yes TAKE 1 [facility] (NAMENDA) 2-16 TABLET BY [facility] ge 10 MG 00:00: MOUTH of tablet 00 TWICE A Medicin DAY e amlodipine 2019-0 Yes 2.5mg Take 2.5 [facility] (NORVASC) 6-03 mg by [place] 2.5 MG 18:34: mouth of tablet 47 daily. Medicin e Metoprolol 2019-0 Yes 50mg Take 50 mg [facility] Succinate 6-03 by mouth Colleg e 50 MG CS24 18:34: two times of 47 daily. Medicin e Silodosin 8 2020-0 Yes 8mg Take 8 mg [facility] MG CAPS 6-03 by mouth [place] 18:34: nightly. of 47 Medicin e aspirin 81 2020-0 Yes 81mg Take 81 mg [facility] MG tablet 6-03 by mouth Colleg e 18:24: daily. of 15 Medicin e rabeprazole 2020-0 Yes 1{tbl} Take 1 Tab [facility]vin[facility] (ACIPHEX) 6-03 by mouth 2 [place] [facility] 20 MG 18:24: times of tablet 15 daily. Medicin e Docusate 2020-0 Yes [id number] Take 3 [place] [facility] Calcium 6-03 capsules [place] (STOOL 18:24: by mouth of SOFTENER 15 nightly. Medicin OR) e carbidopa-l 2020-0 Yes Take 1.5 [facility] [place] [facility]: 1.5 in the of 25-250 MG 00 afternoon, Medi janis per tablet and 1 tab e every evening carbidopa-l 2020-0 Yes Take 1.5 [facility] 6[facility] [place] [facility] 00:00: 1.5 in the of 25-250 MG 00 afternoon, Medi janis per tablet and 1 tab e every evening rivastigmin 2020-0 Yes 6mg Take 2 [facility] (EXELON) 6-03 Caps by Colleg e 3 MG 00:00: mouth two of capsule 00 times Medicin daily. e carbidopa-l 2020-0 Yes Take 1.5 [facility] evodopa 6-[facility] [place] [facility] 00:00: 1.5 in the of 25-250 MG 00 afternoon, Medi janis per tablet and 1 tab e every evening lidocaine-e 2020-0 2020- No 20mL 20 mL, Uni vers pinephrine 07-09 04-08 Intraderma it y of (XYLOCAINE 04:15: 04:51 l, ONCE, 1 [place] WITH 00 :00 dose, e Medical EPINEPHRINE 07/09/19 at [facility] ) 1 2315, %-1:100,000 Routine injection 20 mL bacitracin 2020-0 Yes [id number] Apply to Univers 500 4-08 affected ity of unit/gram 00:00: area(s) 4 Tad as ointment 00 (four) Medical times Branch daily. bacitracin 2020-0 Yes [id number] Apply to Univers 500 4-08 affected ity of unit/gram 00:00: area(s) 4 Tad as ointment 00 (four) Medical times Branch daily. ciprofloxac 2020-0 2020- No [id number] 500mg Take 1 Univers in HCl 500 07-09 04-19 tablet by ity of mg tablet 00:00: 04:59 mouth [place] 00 :00 every 12 Medical (twelve) Branch hours for 10 days. ciprofloxac 2020-0 2020- No [id number] 4[drp] Place 4 [facility] in-dexameth 07-09 Drops in ity of [facility] 00:00: 04:59 left ear 2 [place] (CIPRODEX) 00 :00 (two) Medical 0.3-0.1 % times Branch otic drops daily for 10 days. finasteride 2018-04 Yes 5mg Take 5 mg [facility] (PROSCAR) 5 2-18 by mouth [facility] MG tablet 15:06: daily. of 25 Medicin e Vital Signs Vital Name Observation Time Observation Value Comments Source Systolic blood 2020-12-28 18:47:00 135 mm[Hg] [facility] pressure Medicine Diastolic blood 2020-12-28 18:47:00 74 mm[Hg] [facility] Medicine Heart rate 2020-12-28 18:47:00 58 /min [facility] ollege [facility] Body weight 2020-12-28 18:47:00 83.144 kg [facility] BMI 2020-12-28 18:47:00 26.30 kg/m2 [facility] Systolic blood 2020-06-29 15:20:00 103 mm[Hg] [facility] Medicine Diastolic blood 2020-06-29 15:20:00 61 mm[Hg] [facility] Medicine Heart rate 2020-06-29 15:20:00 60 /min [facility] Respiratory rate 2020-06-29 15:20:00 12 /min [facility] Body height 2020-06-29 15:20:00 177[facility]8 [facility] weight 2020-06-29 15:20:00 90.719 kg [facility] BMI 2020-06-29 15:20:00 28.70 kg/m2 [facility] Systolic blood 2019-07-10 07:31:00 114 mm[Hg] Mehnaz sity of pressure [facility] Diastolic blood 2019-07-10 07:31:00 68 mm[Hg] Unive rsity of [facility] Heart rate 2019-07-10 07:31:00 68 /min [facility] Body temperature 2019-07-10 07:31:00 36.78 [facility]jorie [facility] Respiratory rate 2019-07-10 07:31:00 16 /min [facility] Oxygen saturation in 2019-07-10 07:31:00 93 /min [facility] Arterial blood by [facility] [place] [facility] Pulse oximetry [place] Body weight 2019-07-10 01:55:00 90.719 kg Universi [facility] [place] [facility] Procedures Procedure Date / Time Performed Performing Clinician Sourc e EXTERNAL PROVIDER 2019-07-24 05:01:00 Doctor Unassigned, No Univ [facility] RECORDS Name [facility] Plan of Care Planned Activity Planned Date Details Comments Source Future Scheduled 2020-12-28 FALL SCREEN [code = [place] [facility] of Test 13:44:09 FALL SCREEN] Medicine Future Scheduled 2020-12-28 Screening for [facility] Col lege of Test 13:44:09 malignant neoplasm Medicine of colon (procedure) [code = 189963122] Future Scheduled 2020-12-28 TETANUS SHOT (ADULT) [facility] of Test 13:44:09 [code = TETANUS SHOT Medicin e (ADULT)] Future Scheduled 2020-12-28 BMI FOLLOW UP PLAN [facility] College of Test 13:44:09 [code = BMI FOLLOW Medicine UP PLAN] Future Scheduled 2020-12-28 Hepatitis C [facility] Manny ege of Test 13:44:09 screening Medicine (procedure) [code = 879765546] Future Scheduled 2020-12-28 ZOSTER VACCINE (1 of [facility] College of Test 13:44:09 2) [code = ZOSTER Medicine VACCINE (1 of 2)] Future Scheduled 2020-12-28 PNEUMOVAX >=65 [facility] Co llege of Test 13:44:09 (PPSV23) [code = Medicine PNEUMOVAX >=65 (PPSV23)] Future Scheduled 2020-12-28 FLU VACCINE > 6 [facility] C ollege of Test 13:44:09 MONTHS [code = FLU Medicine VACCINE > 6 MONTHS] Future Scheduled 2020-12-28 FALL SCREEN [code = [facility] of Test 13:44:09 FALL SCREEN] Medicine Future Scheduled 2020-12-28 Screening for [facility] Col lege of Test 13:44:09 malignant neoplasm Medicine of colon (procedure) [code = 496121494] Future Scheduled 2020-12-28 TETANUS SHOT (ADULT) [facility] of Test 13:44:09 [code = TETANUS SHOT Medicin e (ADULT)] Future Scheduled 2020-12-28 BMI FOLLOW UP PLAN [facility] of Test 13:44:09 [code = BMI FOLLOW Medicine UP PLAN] Future Scheduled 2020-12-28 Hepatitis C [facility] Manny ege of Test 13:44:09 screening Medicine (procedure) [code = [id number]] Future Scheduled 2020-12-28 ZOSTER VACCINE (1 of [facility] of Test 13:44:09 2) [code = ZOSTER Medicine VACCINE (1 of 2)] Future Scheduled 2020-12-28 PNEUMOVAX >=65 [facility] Co llege of Test 13:44:09 (PPSV23) [code = Medicine PNEUMOVAX >=65 (PPSV23)] Future Scheduled 2020-12-28 FLU VACCINE > 6 [facility] C ollege of Test 13:44:09 MONTHS [code = FLU Medicine VACCINE > 6 MONTHS] Future Scheduled Screening for [facility] Col lege of [facility] malignant neoplasm Medicine of colon (procedure) [code = 627366246] Future Scheduled TETANUS SHOT (ADULT) [facility] Test [code = TETANUS SHOT Medicin e (ADULT)] Future Scheduled BMI FOLLOW UP PLAN [facility] Test [code = BMI FOLLOW Medicine UP PLAN] Future Scheduled Hepatitis C [facility] Manny ege of Test screening Medicine (procedure) [code = 547502289] Future Scheduled ZOSTER VACCINE (1 of [facility] of Test 2) [code = ZOSTER Medicine VACCINE (1 of 2)] Future Scheduled FALL SCREEN [code = [facility] of Test FALL SCREEN] Medicine Future Scheduled PNEUMOVAX >=65 [facility] Co llege of Test (PPSV23) [code = Medicine PNEUMOVAX >=65 (PPSV23)] Future Scheduled FLU VACCINE > 6 [facility] C ollege of Test MONTHS [code = FLU Medicine VACCINE > 6 MONTHS] Encounters Start End Encounter Admission Attending Care Care Encounter Source Date/Time Date/Time Type Type Clinicians Facility Department ID 2020-12-28 2020-12-28 Office HPONG Marquez [id number] [facility] 13:07:10 13:22:10 Visit Stef AMBULATOR [id number] College Y 0.2.7.2.686 of [id number] [facility] janis 800 e 2020-06-29 2020-06-29 Office PHONG Marquez [id number] [facility] 09:41:34 09:56:34 Visit Stef AMBULATOR [id number] College Y [id number] of [id number] [facility] janis 800 e 2019-07-24 2019-07-24 Orders Doctor MORRIS [id number] Univers 00:00:00 00:00:00 Only Unassigned, KHURRAM [id number] ity of [facility] [id number] Tad as [id number] [facility] 009 Branch 2019-07-09 2019-07-10 Emergency Shayy Nicole TRAUMA [id number] Univers 20:42:57 02:57:00 [place] Han [place] [id number] ity [place] [id number] [facility] 014 Branch 2019-07-09 2019-07-09 Emergency X [facility] ERT [id number] Univers 20:42:57 20:42:57 ity of [facility] Results Test Description Test Time Test Comments Results Result Comments Source URINALYSIS W/ REFLEX URINE CULTURE 2017-08-02 13:54:00 Test Item Value Reference Range Interpretation Comme nts COLOR (BEAKER) (test code = 470) Light Yellow CLARITY (BEAKER) (test code = 469) Clear SPECIFIC GRAVITY UA (BEAKER) (test code = 468) 1.007 1.001-1 .035 PH UA (BEAKER) (test code = 467) 6.0 5.0-8.0 PROTEIN UA (BEAKER) (test code = 464) Negative Negative GLUCOSE UA (BEAKER) (test code = 365) Negative Negative KETONES UA (BEAKER) (test code = 371) Negative Negative BILIRUBIN UA (BEAKER) (test code = 462) Negative Negative BLOOD UA (BEAKER) (test code = 461) Trace Negative A NITRITE UA (BEAKER) (test code = 465) Negative Negative LEUKOCYTE ESTERASE UA (BEAKER) (test code = 466) Trace Negat kacy A UROBILINOGEN UA (BEAKER) (test code = 463) 0.2 mg/dL 0.2-1.0 RBC UA (BEAKER) (test code = 519) 5 /HPF WBC UA (BEAKER) (test code = 520) 2 /HPF MUCUS (BEAKER) (test code = 1574) Rare SQUAMOUS EPITHELIAL (BEAKER) (test code = 516) < /HPF SOURCE(BEAKER) (test code = 2795) BASIC METABOLIC [id number] 05:53:00 Test Item Value Reference Range Interpretation Comments SODIUM (BEAKER) 141 meq/L 136-145 (test code = 381) POTASSIUM (BEAKER) 4.2 meq/L 3.5-5.1 (test code = 379) CHLORIDE (BEAKER) 110 meq/L 98-107 H (test code = 382) CO2 (BEAKER) (test 20 meq/L 22-29 L code = 355) BLOOD UREA NITROGEN 16 mg/dL 7-21 (BEAKER) (test code = 354) CREATININE (BEAKER) 1.01 mg/dL 0.57-1.25 (test code = 358) GLUCOSE RANDOM 125 mg/dL 70-105 H (BEAKER) (test code = 652) CALCIUM (BEAKER) 9.6 mg/dL 8.4-10.2 (test code = 697) EGFR (BEAKER) (test 73 mL/min/1.73 ESTIMA PURA GFR IS code = 1092) sq m NOT ACCURATE CREATININE CLEARANCE IN PREDICTING GLOMERULAR FILTRATION RATE . ESTIMATED GFR I S NOT APPLICABLE FOR DIALYSIS PATIEN TS. CBC W/PLT COUNT & AUTO [id number] 05:39:00 Test Item Value Reference Range Interpretation Comments WHITE BLOOD CELL COUNT (BEAKER) 9.8 K/ L 3.5-10.5 (test code = 775) RED BLOOD CELL COUNT (BEAKER) 4.81 M/ L 4.63-6.08 (test code = 761) HEMOGLOBIN (BEAKER) (test code = 13.8 GM/DL 13.7-17.5 410) HEMATOCRIT (BEAKER) (test code = 43.3 % 40.1-51.0 411) MEAN CORPUSCULAR VOLUME (BEAKER) 90.0 fL 79.0-92.2 (test code = 753) MEAN CORPUSCULAR HEMOGLOBIN 28.7 pg 25.7-32.2 (BEAKER) (test code = 751) MEAN CORPUSCULAR HEMOGLOBIN CONC 31.9 GM/DL 32.3-36.5 L (BEAKER) (test code = 752) RED CELL DISTRIBUTION WIDTH 13.6 % 11.6-14.4 (BEAKER) (test code = 412) PLATELET COUNT (BEAKER) (test 225 K/CU MM 150-450 code = 756) MEAN PLATELET VOLUME (BEAKER) 9.3 fL 9.4-12.4 L (test code = 754) NUCLEATED RED BLOOD CELLS 0 /100 WBC 0-0 (BEAKER) (test code = 413) NEUTROPHILS RELATIVE PERCENT 68 % (BEAKER) (test code = 429) LYMPHOCYTES RELATIVE PERCENT 18 % (BEAKER) (test code = 430) MONOCYTES RELATIVE PERCENT 7 % (BEAKER) (test code = 431) EOSINOPHILS RELATIVE PERCENT 6 % (BEAKER) (test code = 432) BASOPHILS RELATIVE PERCENT 1 % (BEAKER) (test code = 437) NEUTROPHILS ABSOLUTE COUNT 6.61 K/ L 1.78-5.38 H (BEAKER) (test code = 670) LYMPHOCYTES ABSOLUTE COUNT 1.80 K/ L 1.32-3.57 (BEAKER) (test code = 414) MONOCYTES ABSOLUTE COUNT (BEAKER) 0.68 K/ L 0.30-0.82 (test code = 415) EOSINOPHILS ABSOLUTE COUNT 0.61 K/ L 0.04-0.54 H (BEAKER) (test code = 416) BASOPHILS ABSOLUTE COUNT (BEAKER) 0.05 K/ L 0.01-0.08 (test code = 417) IMMATURE GRANULOCYTES-RELATIVE 0 % 0-1 PERCENT (BEAKER) (test code = 2801) POCT-GLUCOSE [id number] 12:48:00 Test Item Value Reference Range Interpretation Comments POC-GLUCOSE METER 111 mg/dL 70-[address] [facility] 6720 ([facility]) (test code = [facility] 1538) [id number] POCT-GLUCOSE [id number] 06:51:00 Test Item Value Reference Range Interpretation Comments POC-GLUCOSE METER 113 mg/dL 70-[address] [facility] 67[address] ([facility]) (test code = [place] 1538) [id number] BASIC METABOLIC [id number] 04:35:00 Test Item Value Reference Range Interpretation Comments SODIUM (BEAKER) 140 meq/L 136-145 (test code = 381) POTASSIUM (BEAKER) 4.2 meq/L 3.5-5.1 (test code = 379) CHLORIDE (BEAKER) 110 meq/L 98-107 H (test code = 382) CO2 (BEAKER) (test 22 meq/L 22-29 code = 355) BLOOD UREA NITROGEN 18 mg/dL 7-21 (BEAKER) (test code = 354) CREATININE (BEAKER) 0.96 mg/dL 0.57-1.25 (test code = 358) GLUCOSE RANDOM 102 mg/dL 70-105 (BEAKER) (test code = 652) CALCIUM (BEAKER) 8.7 mg/dL 8.4-10.2 (test code = 697) EGFR (BEAKER) (test 78 mL/min/1.73 ESTIMA PURA GFR IS code = 1092) sq m NOT ACCURATE CREATININE CLEARANCE IN PREDICTING GLOMERULAR FILTRATION RATE . ESTIMATED GFR I S NOT APPLICABLE FOR DIALYSIS PATIEN TS. CBC W/PLT COUNT & AUTO [id number] 04:10:00 Test Item Value Reference Range Interpretation Comments WHITE BLOOD CELL COUNT (BEAKER) 9.5 K/ L 3.5-10.5 (test code = 775) RED BLOOD CELL COUNT (BEAKER) 4.61 M/ L 4.63-6.08 L (test code = 761) HEMOGLOBIN (BEAKER) (test code = 13.3 GM/DL 13.7-17.5 L 410) HEMATOCRIT (BEAKER) (test code = 42.6 % 40.1-51.0 411) MEAN CORPUSCULAR VOLUME (BEAKER) 92.4 fL 79.0-92.2 H (test code = 753) MEAN CORPUSCULAR HEMOGLOBIN 28.9 pg 25.7-32.2 (BEAKER) (test code = 751) MEAN CORPUSCULAR HEMOGLOBIN CONC 31.2 GM/DL 32.3-36.5 L (BEAKER) (test code = 752) RED CELL DISTRIBUTION WIDTH 13.4 % 11.6-14.4 (BEAKER) (test code = 412) PLATELET COUNT (BEAKER) (test 225 K/CU MM 150-450 code = 756) MEAN PLATELET VOLUME (BEAKER) 9.3 fL 9.4-12.4 L (test code = 754) NUCLEATED RED BLOOD CELLS 0 /100 WBC 0-0 (BEAKER) (test code = 413) NEUTROPHILS RELATIVE PERCENT 57 % (BEAKER) (test code = 429) LYMPHOCYTES RELATIVE PERCENT 29 % (BEAKER) (test code = 430) MONOCYTES RELATIVE PERCENT 6 % (BEAKER) (test code = 431) EOSINOPHILS RELATIVE PERCENT 7 % (BEAKER) (test code = 432) BASOPHILS RELATIVE PERCENT 1 % (BEAKER) (test code = 437) NEUTROPHILS ABSOLUTE COUNT 5.38 K/ L 1.78-5.38 (BEAKER) (test code = 670) LYMPHOCYTES ABSOLUTE COUNT 2.75 K/ L 1.32-3.57 (BEAKER) (test code = 414) MONOCYTES ABSOLUTE COUNT (BEAKER) 0.60 K/ L 0.30-0.82 (test code = 415) EOSINOPHILS ABSOLUTE COUNT 0.64 K/ L 0.04-0.54 H (BEAKER) (test code = 416) BASOPHILS ABSOLUTE COUNT (BEAKER) 0.06 K/ L 0.01-0.08 (test code = 417) IMMATURE GRANULOCYTES-RELATIVE 0 % 0-1 PERCENT (BEAKER) (test code = 2801) POCT-GLUCOSE [id number] 03:43:00 Test Item Value Reference Range Interpretation Comments POC-GLUCOSE METER 177 mg/dL 70-110 H TESTED AT [place] [address] ([facility]) (test code = [place] Armstrong [facility] 1538) [id number] POCT-GLUCOSE [id number] 22:34:00 Test Item Value Reference Range Interpretation Comments POC-GLUCOSE METER 128 mg/dL 70-110 H TESTED AT [place] [address] ([facility]) (test code = [place] Armstrong [facility] 1538) [id number] POCT-GLUCOSE [id number] 22:19:00 Test Item Value Reference Range Interpretation Comments POC-GLUCOSE METER 126 mg/dL 70-110 H TESTED AT [place] [address] ([facility]) (test code = [place] Armstrong [facility] 1538) [id number] POCT-GLUCOSE [id number] 12:26:00 Test Item Value Reference Range Interpretation Comments POC-GLUCOSE METER 136 mg/dL 70-[address] [facility] 6720 ([place]) (test code = LEATHA Armstrong [place] 1538) [address] POCT-GLUCOSE [id number] 08:22:00 Test Item Value Reference Range Interpretation Comments POC-GLUCOSE METER 108 mg/dL 70-[address] [facility] [address] (YOSSI) (test code = LEATHA Armstrong [place] 1538) [address] CT BRAIN WITHOUT IV CONTRAST - [id number] 08:16:00Reason for exam:->SDHFINAL REPORT CT Head without contrast CLINICAL HISTORY: [...] recommended. Signed: Shelby Eubanks MDReport Verified Date/Time: 07/30/2017 08:16:45 Reading Location: [address] Neuro Reading Room [id number] 05:36:00 Test Item Value Reference Range Interpretation Comments MAGNESIUM (BEAKER) 2.1 mg/dL 1.6-2.6 Specimen slightly (test code = 627) hemolyzed Once on admission and Daily AM afterwardsOnce on admission and Daily AM afterwardsOnce on admission and Daily AM [id number] 05:36:00 Test Item Value Reference Range Interpretation Comments PHOSPHORUS (BEAKER) 3.2 mg/dL 2.3-4.7 Specimen slightly (test code = 604) hemolyzed Once on admission and Daily AM afterwardsOnce on admission and Daily AM afterwardsOnce on admission and Daily AM afterwardsBASIC METABOLIC PANEL 2017-07-30 05:36:00 Test Item Value Reference Range Interpretation Comments SODIUM (BEAKER) 139 meq/L 136-145 (test code = 381) POTASSIUM (BEAKER) 4.7 meq/L 3.5-5.1 Specimen slightly (test code = 379) hemolyzed CHLORIDE (BEAKER) 110 meq/L 98-107 H (test code = 382) CO2 (BEAKER) (test 18 meq/L 22-29 L code = 355) BLOOD UREA NITROGEN 14 mg/dL 7-21 (BEAKER) (test code = 354) CREATININE (BEAKER) 0.92 mg/dL 0.57-1.25 Specimen slightly (test code = 358) hemolyzed GLUCOSE RANDOM 93 mg/dL 70-105 (BEAKER) (test code = 652) CALCIUM (BEAKER) 9.2 mg/dL 8.4-10.2 (test code = 697) EGFR (BEAKER) (test 82 mL/min/1.73 ESTIMA PURA GFR IS code = 1092) sq m NOT ACCURATE CREATININE CLEARANCE IN PREDICTING GLOMERULAR FILTRATION RATE . ESTIMATED GFR I S NOT APPLICABLE FOR DIALYSIS PATIEN TS. Once on admission and Daily AM afterwardsOnce on admission and Daily AM afterwardsOnce on admission and Daily AM afterwardsCBC W/PLT COUNT & AUTO [id number] 04:16:00 Test Item Value Reference Range Interpretation Comments WHITE BLOOD CELL COUNT (BEAKER) 11.3 K/ L 3.5-10.5 H (test code = 775) RED BLOOD CELL COUNT (BEAKER) 5.12 M/ L 4.63-6.08 (test code = 761) HEMOGLOBIN (BEAKER) (test code = 15.3 GM/DL 13.7-17.5 410) HEMATOCRIT (BEAKER) (test code = 47.5 % 40.1-51.0 411) MEAN CORPUSCULAR VOLUME (BEAKER) 92.8 fL 79.0-92.2 H (test code = 753) MEAN CORPUSCULAR HEMOGLOBIN 29.9 pg 25.7-32.2 (BEAKER) (test code = 751) MEAN CORPUSCULAR HEMOGLOBIN CONC 32.2 GM/DL 32.3-36.5 L (BEAKER) (test code = 752) RED CELL DISTRIBUTION WIDTH 13.0 % 11.6-14.4 (BEAKER) (test code = 412) PLATELET COUNT (BEAKER) (test 210 K/CU MM 150-450 code = 756) MEAN PLATELET VOLUME (BEAKER) 9.0 fL 9.4-12.4 L (test code = 754) NUCLEATED RED BLOOD CELLS 0 /100 WBC 0-0 (BEAKER) (test code = 413) NEUTROPHILS RELATIVE PERCENT 66 % (BEAKER) (test code = 429) LYMPHOCYTES RELATIVE PERCENT 23 % (BEAKER) (test code = 430) MONOCYTES RELATIVE PERCENT 7 % (BEAKER) (test code = 431) EOSINOPHILS RELATIVE PERCENT 3 % (BEAKER) (test code = 432) BASOPHILS RELATIVE PERCENT 0 % (BEAKER) (test code = 437) NEUTROPHILS ABSOLUTE COUNT 7.42 K/ L 1.78-5.38 H (BEAKER) (test code = 670) LYMPHOCYTES ABSOLUTE COUNT 2.64 K/ L 1.32-3.57 (BEAKER) (test code = 414) MONOCYTES ABSOLUTE COUNT (BEAKER) 0.82 K/ L 0.30-0.82 (test code = 415) EOSINOPHILS ABSOLUTE COUNT 0.30 K/ L 0.04-0.54 (BEAKER) (test code = 416) BASOPHILS ABSOLUTE COUNT (BEAKER) 0.05 K/ L 0.01-0.08 (test code = 417) IMMATURE GRANULOCYTES-RELATIVE 0 % 0-1 PERCENT (BEAKER) (test code = 2801) POCT-GLUCOSE [id number] 22:02:00 Test Item Value Reference Range Interpretation Comments POC-GLUCOSE METER 118 mg/dL 70-[address] [facility] 6720 (BEAKER) (test code = LEATHA [place] 1538) [id number] URINALYSIS W/ [id number] 18:07:00 Test Item Value Reference Range Interpretation Comments COLOR (BEAKER) (test code = 470) Yellow CLARITY (BEAKER) (test code = 469) Clear SPECIFIC GRAVITY UA (BEAKER) (test 1.010 1.001-1.035 code = 468) PH UA (BEAKER) (test code = 467) 8.0 5.0-8.0 PROTEIN UA (BEAKER) (test code = Negative Negative 464) GLUCOSE UA (BEAKER) (test code = Negative Negative 365) KETONES UA (BEAKER) (test code = Trace Negative A 371) BILIRUBIN UA (BEAKER) (test code = Negative Negative 462) BLOOD UA (BEAKER) (test code = 461) Negative Negative NITRITE UA (BEAKER) (test code = Negative Negative 465) LEUKOCYTE ESTERASE UA (BEAKER) Negative Negative (test code = 466) UROBILINOGEN UA (BEAKER) (test code 0.2 mg/dL 0.2-1.0 = 463) RBC UA (BEAKER) (test code = 519) < /HPF WBC UA (BEAKER) (test code = 520) 0 /HPF SQUAMOUS EPITHELIAL (BEAKER) (test < /HPF code = 516) SOURCE(BEAKER) (test code = 2795) TROPONIN [id number] 17:06:00 Test Item Value Reference Range Interpretation Comments TROPONIN I (BEAKER) (test code = 0.02 ng/mL 0.00-0.03 397) Troponin I (TnI) levels must be interpreted [...] acute neurological disease, and persistent tachyarrhythmia.HEPATIC FUNCTION [id number] 15:29:00 Test Item Value Reference Range Interpretation Comments TOTAL PROTEIN (BEAKER) (test code = 7.0 gm/dL 6.0-8.3 770) ALBUMIN (BEAKER) (test code = 1145) 4.2 g/dL 3.5-5.0 BILIRUBIN TOTAL (BEAKER) (test code 0.7 mg/dL 0.2-1.2 = 377) BILIRUBIN DIRECT (BEAKER) (test 0.2 mg/dL 0.1-0.5 code = 706) ALKALINE PHOSPHATASE (BEAKER) (test 105 U/L 40-150 code = 346) AST (SGOT) (BEAKER) (test code = 20 U/L 5-34 353) ALT (SGPT) (BEAKER) (test code = < U/L 6-55 L 347) PROTHROMBIN TIME/[id number] 15:11:00 Test Item Value Reference Range Interpretation Comments PROTIME (YOSSI) (test code = 13.9 seconds 11.7-14.7 759) INR (RICKYAKER) (test code = 370) 1.1 <=5.9 RECOMMENDED COUMADIN/WARFARIN INR THERAPY RANGESSTANDARD DOSE: 2.0 - 3.0 Includes: PROPHYLAXIS forvenous thrombosis, systemic embolization; TREATMENT for venous thrombosis and/or pulmonary embolus.HIGH RISK: Target INR is 2.5-3.5 for patients with mechanical heart valves.[id number] 15:11:00 Test Item Value Reference Range Interpretation Comments PARTIAL THROMBOPLASTIN TIME 29.9 seconds 22.5-36.0 (BEKAMRAN) (test code = 760)
--- NOTE | 2021-06-04 12:30 | RAD REPORT ---
EXAM DESCRIPTION: CT - Head Brain Wo Cont - 06/04/2021 12:21 pm CLINICAL HISTORY: CONFUSED COMPARISON: Head Brain Wo Cont dated 08/11/2017 TECHNIQUE: All CT scans are performed using dose optimization technique as appropriate and may inclu de automated exposure control or mA/KV adjustment according to patient size. FINDINGS: No intracranial hemorrhage, hydrocephalus or extra-axial fluid collection.No areas of brai n edema or evidence of midline shift. The paranasal sinuses and mastoids are clear. The calvarium is intact. IMPRESSION: No acute intracranial abnormality.
--- NOTE | 2021-06-04 14:04 | RAD REPORT ---
EXAM DESCRIPTION: RAD - Hand Left 2 View - 06/04/2021 1:21 pm CLINICAL HISTORY: Left hand pain status post injury FINDINGS: No fracture or dislocation is seen. A limited two-view series was obtained
--- NOTE | 2021-06-04 14:04 | RAD REPORT ---
EXAM DESCRIPTION: RAD - Forearm Left - 06/04/2021 1:21 pm CLINICAL HISTORY: Left forearm pain status post injury FINDINGS: No fracture is seen
--- NOTE | 2021-06-04 14:06 | RAD REPORT ---
EXAM DESCRIPTION: RAD - Hand Right 2 View - 06/04/2021 1:21 pm CLINICAL HISTORY: Right hand pain FINDINGS: Osteoporosis No fracture or dislocation seen
--- NOTE | 2021-06-04 14:07 | RAD REPORT ---
EXAM DESCRIPTION: CT - C Spine Wo Con - 06/04/2021 12:58 pm CLINICAL HISTORY: Neck injury status post fall. Neck pain COMPARISON: 2018 TECHNIQUE: Computed axial tomography of the cervical spine were obtained with sagittal and coronal r econstruction images generated and reviewed. All CT scans are performed using dose optimization technique as appropriate and may include automated exposure control or mA/KV adjustment according to patient size. FINDINGS: A cervical fracture is not seen. No dislocation Spondylosis involves the cervical spine resulting in multilevel mild to matter foraminal stenosis Moderate to large left pleural effusion IMPRESSION: A cervical fracture is not seen. Moderate to large left pleural effusion If the patient continues have symptoms to suggest spinal cord/spinal canal pathology then MRI would b e recommended.
--- NOTE | 2021-06-04 15:15 | EDPHYS ---
Physician Documentation [facility] Name: Osman Foy Jr Age: 71 yrs Sex: Male : 1950 Arrival Date: 06/04/2021 Time: 11:48 Bed 25 Private MD: Tiffanie Hobson C ED Physician Erich Sierra HPI: 06/04 12:10 This 71 yrs old Male presents to ER via Wheelchair with complaints of Fall Injury, jmm confusion, Wrist Pain. 12:10 Details of fall: The patient fell from an upright position, while walking. Onset: The jmm symptoms/episode began/occurred acutely. Associated injuries: The patient sustained injury to the head, neck injury. This is a 71 year old male with a history of parkinsons, htn that presents to the ED with complaints of headache, neck pain, left arm pain following a fall attributed to his parkinsons disease. Patient denies chest pain or shortness of breath. . Historical: - Allergies: 12:04 No Known Allergies; ww - Home Meds: 12:04 aspirin 81 mg Oral TbEC 1 tab once daily [Active]; carbidopa-levodopa 25-100 mg Oral ww TbER 1 tab 3 times per day [Active]; memantine 10 mg oral tab 2 times per day [Active]; tamsulosin 0.4 mg oral cap 1 cap once daily [Active]; sertraline 100 mg Oral tab 1 tab once daily [Active]; rivastigmine tartrate 3 mg oral cap 2 caps 2 times per day [Active]; metoprolol tartrate 50 mg Oral tab 1 tab 2 times per day [Active]; amlodipine 2.5 mg tab 1 tab once daily [Active]; midodrine 10 mg oral tab 1 tab 3 times per day [Active]; atorvastatin 20 mg oral tab 1 tab once daily [Active]; rabeprazole 20 mg Oral TbEC 1 tab once daily [Active]; - PMHx: 12:04 Parkinsons; Hypertensive disorder; ww - PSHx: 12:04 Appendectomy; Cholecystectomy; ww - Immunization history: Last tetanus immunization: - up to date. - Social history:: Smoking status: Patient denies any tobacco usage or history of. Smoking status: . ROS: 12:10 Constitutional: Negative for fever, chills, and weight loss, Cardiovascular: Negative jmm for chest pain, palpitations, and edema, Respiratory: Negative for shortness of breath, cough, wheezing, and pleuritic chest pain. 12:10 MS/extremity: Positive for pain. 12:10 Neuro: Positive for headache. 12:10 All other systems are negative. Exam: 12:10 Constitutional: This is a well developed, well nourished patient who is awake, alert, jmm and in no acute distress. Head/Face: atraumatic. Eyes: EOMI, no conjunctival erythema appreciated ENT: Moist Mucus Membranes 12:10 Neck: C-spine: vertebral tenderness, that is mild, diffusely. 12:10 Chest/axilla: Inspection: normal, Palpation: is normal, Axilla: are normal. 12:10 Cardiovascular: Rate: normal, Rhythm: regular. 12:10 Respiratory: the patient does not display signs of respiratory distress, Respirations: normal, Breath sounds: are clear throughout. 12:10 Abdomen/GI: Inspection: abdomen appears normal, Bowel sounds: normal, Palpation: abdomen is soft and non-tender, in all quadrants. 12:10 Musculoskeletal/extremity: ROM: intact in all extremities, ecchymosis noted to the right hand, pain on palpation of the left forearm, FROM noted to all UE joints. Full radial pulse, bilaterally. 12:10 Skin: Appearance: Color: normal in color. 12:10 Neuro: Orientation: is normal, Mentation: is normal, Memory: is normal. Vital Signs: 11:59 BP 132 / 67; Pulse 78; Resp 16; Temp 97.6; Pulse Ox 99% on R/A; Weight 80.74 kg; Height ww 5 ft. 9 in. (175.26 cm); 11:59 Body Mass Index 26.29 (80.74 kg, 175.26 cm) ww Granton Coma Score: 11:59 Eye Response: spontaneous(4). Verbal Response: oriented(5). Motor Response: obeys ww commands(6). Total: 15. 12:03 Eye Response: spontaneous(4). Verbal Response: oriented(5). Motor Response: obeys beasley commands(6). Total: 15. Trauma Score (Adult): 11:59 Eye Response: spontaneous(1); Verbal Response: oriented(1); Motor Response: obeys ww commands(2); Systolic BP: > 89 mm Hg(4); Respiratory Rate: 10 to 29 per min(4); Yossi Score: 15; Trauma Score: 12 12:03 Eye Response: spontaneous(1); Verbal Response: oriented(1); Motor Response: obeys beasley commands(2); Systolic BP: > 89 mm Hg(4); Respiratory Rate: 10 to 29 per min(4); Granton Score: 15; Trauma Score: 12 MDM: 12:33 Patient medically screened. [facility] 15:12 Data reviewed: vital signs, nurses notes. Counseling: I had a detailed discussion with [facility] the patient and/or guardian regarding: the historical points, exam findings, and any diagnostic results supporting the discharge/admit diagnosis, lab results, radiology results, the need for outpatient follow up, to return to the emergency department if symptoms worsen or persist or if there are any questions or concerns that arise at home. 06/04 12:09 Order name: CT Head Brain wo Cont; Complete Time: 12:35 ww 06/04 12:34 Order name: CT C Spine; Complete Time: 14:09 [facility] 06/04 12:34 Order name: Forearm Left XRAY; Complete Time: 14:09 [facility] 06/04 13:17 Order name: Hand Left 2 View; Complete Time: 14:09 EDMS 06/04 13:18 Order name: Hand Right 2 View; Complete Time: 14:09 EDIN Administered Medications: No medications were administered Disposition Summary: 06/04/21 15:14 Discharge Ordered Location: Home [facility] Condition: Stable [facility] Diagnosis - Contusion of forearm jm - Unspecified injury of head, initial encounter [facility] Followup: [facility] - With: Tiffanie Hobson MD - When: 2 - 3 days - Reason: Recheck today's complaints, Continuance of care, Re-evaluation by your physician Discharge Instructions: - Discharge Summary Sheet [facility] - Head Injury, Adult [facility] - Wrist and Forearm Exercises-SportsMed [facility] Forms: - Medication Reconciliation Form [facility] - Thank You Letter [facility] - Antibiotic Education [facility] - Prescription Opioid Use [facility] Prescriptions: - orphenadrine citrate 100 mg Oral Tablet Sustained Release - take 1 tablet by ORAL route 2 times per day As needed; 20 tablet; Refills: 0, [facility] Product Selection Permitted Signatures: Dispatcher [employer] EDMario Olivares PA PA jmm Wood Shani, RN RN ww Opal Magana RN RN beasley Corrections: (The following items were deleted from the chart) 13:17 12:35 Hand Left 3 View+RAD.RAD.BRZ ordered. EDMS EDMS 13:18 12:35 Wrist Right 3 View+RAD.RAD.BRZ ordered. EDMS EDMS
--- NOTE | 2021-06-04 15:15 | ER ---
Nurse's Notes [facility] Name: Osman Foy Jr Age: 71 yrs Sex: Male : 1950 Arrival Date: 06/04/2021 Time: 11:48 Bed 25 Private MD: Tiffanie Hobson C Diagnosis: Contusion of forearm;Unspecified injury of head, initial encounter Presentation: 06/04 11:59 Chief complaint: Patient states: Fell today and hit head, no LOC but states he has ww been a little confused since the fall. Complaining of right hand and 3rd digit pain and left forearm. states he fell 3 times yesterday. Care prior to arrival: None. Mechanism of Injury: Fall from standing position. Trauma event details: Injury occurred: at home. Injury occurred: June 04, 2021 Injury occurred at: 10:30. 11:59 Acuity: SHELIA 3 ww 11:59 Method Of Arrival: Wheelchair ww 12:04 Coronavirus screen: Vaccine status: Patient reports receiving the 2nd dose of the covid beasley vaccine. Ebola Screen: Patient denies travel to an Ebola-affected area in the 21 days before illness onset. Initial Sepsis Screen: Does the patient meet any 2 criteria? No. Patient's initial sepsis screen is negative. Does the patient have a suspected source of infection? No. Patient's initial sepsis screen is negative. Risk Assessment: Do you want to hurt yourself or someone else? Patient reports no desire to harm self or others. Onset of symptoms was June 04, 2021. Trauma Activation: Physician: ED Physician; Name: Dr. Sierra; Notified At: ; Arrived At: Physician: General Surgeon; Name: ; Notified At: ; Arrived At: Physician: Radiology; Name: ; Notified At: ; Arrived At: Physician: Respiratory; Name: ; Notified At: ; Arrived At: Physician: Lab; Name: ; Notified At: ; Arrived At: Historical: - Allergies: 12: No Known Allergies; ww - Home Meds: 12:04 aspirin 81 mg Oral TbEC 1 tab once daily [Active]; carbidopa-levodopa 25-100 mg Oral ww TbER 1 tab 3 times per day [Active]; memantine 10 mg oral tab 2 times per day [Active]; tamsulosin 0.4 mg oral cap 1 cap once daily [Active]; sertraline 100 mg Oral tab 1 tab once daily [Active]; rivastigmine tartrate 3 mg oral cap 2 caps 2 times per day [Active]; metoprolol tartrate 50 mg Oral tab 1 tab 2 times per day [Active]; amlodipine 2.5 mg tab 1 tab once daily [Active]; midodrine 10 mg oral tab 1 tab 3 times per day [Active]; atorvastatin 20 mg oral tab 1 tab once daily [Active]; rabeprazole 20 mg Oral TbEC 1 tab once daily [Active]; - PMHx: 12:04 Parkinsons; Hypertensive disorder; ww - PSHx: 12:04 Appendectomy; Cholecystectomy; ww - Immunization history: Last tetanus immunization: - up to date. - Social history:: Smoking status: Patient denies any tobacco usage or history of. Smoking status: . Screenin:02 Abuse screen: Denies threats or abuse. Denies injuries from another. Nutritional beasley screening: No deficits noted. Tuberculosis screening: No symptoms or risk factors identified. Fall Risk None identified. Primary Survey: 11:59 NO uncontrolled hemorrhage observed. Breathing/Chest: Respiratory pattern: regular. ww Circulation: Heart tones present. Skin color: pink, Skin temperature: warm, dry. Disability Alert. Exposure/Environment: There is no evidence of uncontrolled external bleeding. No obvious injuries are noted at this time. 12:03 NO uncontrolled hemorrhage observed. Breathing/Chest: Respiratory pattern: regular. beasley Circulation: Cardiac rhythm: sinus rhythm Pulses: palpable left radial artery. Disability Alert. Exposure/Environment: A warming method has been applied: A warm blanket has been provided to the patient. 12:04 Reassessment Breathing/Chest Respiratory pattern Regular Circulation Heart rhythm Sinus beasley rhythm Disability Alert. Assessment: 11:59 General: Appears comfortable, Behavior is calm, cooperative. Pain: Complains of pain in ww right hand and dorsal aspect of left forearm. Neuro: Level of Consciousness is awake, alert, obeys commands, Oriented to person, place, time, situation. Cardiovascular: Capillary refill Patient's skin is warm and dry. Chest pain is denied. Respiratory: Airway is patent Respiratory effort is even, unlabored, Respiratory pattern is regular, symmetrical. GI: No signs and/or symptoms were reported involving the gastrointestinal system. : No signs and/or symptoms were reported regarding the genitourinary system. Derm: Skin has skin tears on left forearm. Musculoskeletal: Reports tremors due to Parkinson. 12:01 General: Appears in no apparent distress. Behavior is calm, cooperative. Pain: beasley Complains of pain in scalp. Derm: Reports pain that is 6 out of 10 on a pain scale. Injury Description: Head injury sustained to scalp Bruise sustained to palmar aspect of distal phalanx of right middle finger, palmar aspect of middle phalanx of right middle finger and palmar aspect of proximal phalanx of right middle finger. Vital Signs: 11:59 BP 132 / 67; Pulse 78; Resp 16; Temp 97.6; Pulse Ox 99% on R/A; Weight 80.74 kg; Height ww 5 ft. 9 in. (175.26 cm); 11:59 Body Mass Index 26.29 (80.74 kg, 175.26 cm) ww Yossi Coma Score: 11:59 Eye Response: spontaneous(4). Verbal Response: oriented(5). Motor Response: obeys ww commands(6). Total: 15. 12:03 Eye Response: spontaneous(4). Verbal Response: oriented(5). Motor Response: obeys beasley commands(6). Total: 15. Trauma Score (Adult): 11:59 Eye Response: spontaneous(1); Verbal Response: oriented(1); Motor Response: obeys ww commands(2); Systolic BP: > 89 mm Hg(4); Respiratory Rate: 10 to 29 per min(4); Yossi Score: 15; Trauma Score: 12 12:03 Eye Response: spontaneous(1); Verbal Response: oriented(1); Motor Response: obeys beasley commands(2); Systolic BP: > 89 mm Hg(4); Respiratory Rate: 10 to 29 per min(4); Yossi Score: 15; Trauma Score: 12 ED Course: 11:48 Patient arrived in ED. as 11:48 Tiffanie Hobson MD is Private Physician. as 12:01 Triage completed. ww 12:02 Patient has correct armband on for positive identification. beasley 12:02 No provider procedures requiring assistance completed. beasley 12:03 Patient maintains SpO2 saturation greater than 95% on room air. beasley 12:04 Arm band placed on. beasley 12:22 CT Head Brain wo Cont In Process Unspecified. EDMS 12:25 Mario Swift PA is PHCP. jmm 12:25 Erich Sierra MD is Attending Physician. jmm 12:57 CT C Spine In Process Unspecified. EDMS 13:21 Forearm Left XRAY In Process Unspecified. EDMS 13:21 Hand Left 2 View In Process Unspecified. EDMS 13:21 Hand Right 2 View In Process Unspecified. EDMS 15:14 Tiffanie Hobson MD is Referral Physician. [facility] Administered Medications: No medications were administered Intake: 12:03 PO: 0ml; Total: 0ml. beasley Outcome: 15:14 Discharge ordered by . [facility] 15:37 Patient left the ED. eb Signatures: Dispatcher [employer] EDMS Mario Swift PA PA jmm Martinez, Amelia as Botello, Elizabeth eb Wood, Whitney, RN RN Opal Jackson RN RN beasley
[2021-06-04 15:49] VITALS: BP 132/67; TEMP 97.6; O2SAT 99
== END 2021-06-04 15:37 | disposition home or self-care (01) ==
LOC: ER 11:46
DX: S50.12XA Contusion of left forearm, initial encounter (principal); S09.90XA Unspecified injury of head, initial encounter; G20 Parkinson's disease; I10 Essential (primary) hypertension; Z79.82 Long term (current) use of aspirin
CPT/HCPCS: 70450; 72125; 99284

== ENCOUNTER 2021-11-03 07:23 | Day surgery (SDC) | payer OTHER ==
[2021-11-03 08:05] VITALS: BMI 24.7
[2021-11-03 08:44] LABS: Absolute Lymphocytes (CBC) 1.7 K/uL (0.7-4.9); Hematocrit 42.3 % (39.6-49.0); Lymphocytes % 19.6 % (15.3-44.8); MCV 89.8 fL (80-100); MPV 6.8 fL (7.6-11.3); RBC Red Blood Cell Count 4.71 M/uL (4.33-5.43)
[2021-11-03 08:47] LABS: Protime INR 1.08
--- NOTE | 2021-11-03 10:51 | RAD REPORT ---
EXAM DESCRIPTION: DEISIFiona Single View11/03/2021 10:31 am CLINICAL HISTORY: Left thoracentesis IMPRESSION: A pneumothorax is not visualized status post thoracentesis
--- NOTE | 2021-11-03 13:07 | RAD REPORT ---
EXAM DESCRIPTION: US - Thoracentesis w/ US Guide - 11/03/2021 10:25 am CLINICAL HISTORY: Left pleural effusion COMPARISON: October 2019 x-ray TECHNIQUE: The risks, benefits alternatives to the procedure were explained to the patient and and informed consent obtained. Skiin ,subcutaneous tissues and pleura anesthetized with lidocaine. Under sonographic guidance, an 8 Pashto catheter was placed into the posterior lower left pleural spa ce. Approximately 700 cc of yellow fluid removed. Fluid was sent to the lab. Patient experienced no immediate complication IMPRESSION: Thoracentesis
[2021-11-03 13:08] VITALS: BP 125/59; TEMP 98.4; O2SAT 96
[2021-11-03 14:43] LABS: Appearance CLEAR (CLEAR); Body Fluid Source PLEURAL; Color of fluid Yellow (COLORLESS)
[2021-11-03 14:44] LABS: Body Fluid WBC 105 /mm^3
== END 2021-11-03 13:15 | disposition home or self-care (01) ==
LOC: DS 07:23
PROVIDERS: ATTEND Anesthesiology Pain Medicine
DX: J90 Pleural effusion, not elsewhere classified (principal)
CPT/HCPCS: 32555; 36415; 71045; 82945; 83615; 85025; 85610; 85730; 87015; 87070; 87116; 87206; 88108; 88305; 89050

== ENCOUNTER 2021-12-16 10:54 | Inpatient (IN) | payer OTHER ==
--- OUTSIDE RECORDS SUMMARY | 2021-12-16 11:10 | XMS REPORT | Continuity of Care Document ---
:1950 Author Organization [facility] t Address [address] [place] [address] [address] [place] [address] Care Team Providers Name Role Phone Felipe Hobson MD Primary Care Physician STEF MARQUEZ Attending Clinician Unavailable Stef Marquez MD Attending Clinician Christiano Collins Attending Clinician Doctor Unassigned, Maria Antonia Attending Clinician Unavailable Shayy Nicole MD Attending Clinician Colton Lomas MD Attending Clinician MAGDA LIZAMA Attending Clinician Unavailable Colton Lomas MD Admitting Clinician COLTON LOMAS Admitting Clinician Unavailable MAGDA LIZAMA Admitting Clinician Unavailable Payers Payer Name Policy Type Policy Number Effective Date Expiration Date S [facility] [facility] MEDICARE [id number] ADVANTAGE PPO-UHC [employer] MEDICARE [id number] ADVANTAGE PPO MEDICARE PART B - [id number] [facility] [id number] 2011 2011 GRP [id number] OR 00:00:00 00:00:00 [id number]/POS Problems Condition Condition Condition Status Onset Resolution Last Treating Co mments Source Name Details Category Date Date Treatment Clinician Date RBD (REM RBD (REM Disease Active [facility] 3-29 Co llege disorder) disorder) 00:00: of 00 Medicin e 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 7- Colleg e (HCCode) (HCCode) 00:00: of 00 Medicin e Parkinson' Parkinson' Disease Active [facility] disease s disease 4- [facility] Subdural [facility] 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 2-17 College 00:00: of 00 Medicin e Parkinson Parkinson Disease Active [facility] disease disease 9-20 [facility] (H[facility]ode) 00:00: of 00 Medicin e Depression Depression Disease Active [facility] 9-20 College 00:00: of 00 Medicin e Atrial Atrial Problem Active 2020-10-18 Zain anai fibrillati fibrillati 01:01:14 l on on Panfilo (disorder) (disorder) Active Problem 10/18/2020 [facility] Cough Cough Problem Active 2020-10-18 Memor ia (finding) (finding) 01:01:14 l Active Jerome Problem 10/18/2020 [facility] History of History Problem Active 2020-10-18 Memoria - of - 01:01:14 l hypertensi hypertensi He rmann on on (context-d (context-d ependent ependent category) category) Active Problem 10/18/2020 [facility] Orthostati Orthostat Problem Active 2020-10-18 Memoria c ic 01:01:14 l hypotensio hypotensio He rmann n n (disorder) (disorder) Active Problem 10/18/2020 [facility] Allergies, Adverse Reactions, Alerts Allergy Allergy Status Severity Reaction(s) Onset Inactive Treating Comm ents Source Name Type Date Date Clinician NO KNOWN Drug Active Veronica ALLERGANA Class ity of S [facility] Family History Family Member Diagnosis Comments Start Date Stop Date Source Natural father Heart attack [facility] Natural mother Cancer [facility] Social History Social Habit Start Date Stop Date Quantity Comments Source Exposure to 2021-06-17 2021-06-27 Not sure [facility] Colleg e SARS-CoV-2 00:00:00 15:40:00 of Medicine (event) Tobacco use and 2017-07-29 2017-07-[address] [facility] exposure 00:00[facility]00 [facility]:00 [facility] Center Alcohol intake 2017-07-29 2017-07-[address] [facility] 00:00:00 00:00:00 non-drinker of Medical Ce nter alcohol (finding) Sex Assigned At [address] [facility] 00:[facility] Center Smoking Status Start Date Stop Date Source Social History [facility] Medications Ordered Filled Start Stop Current Ordering Indication Dosage Frequency Signature Comments Components Source Medication Medication Date Date Medication? Clinician (SIG) Name Name rabeprazole Yes 1{tbl} Take [address] [facility] (ACIPHEX) 3-28 by mouth 2 Manny ege 20 MG 09:20: times of tablet 45 daily. Medicin e aspirin 81 2021-0 Yes 81mg Take 81 mg [facility] MG tablet 3-28 by mouth Colleg e 09:20: daily. of 45 Medicin e finasteride 0 Yes 5mg Take 5 mg [facility] (PROSCAR) 5 -28 by mouth Manny ege MG tablet 09:20: daily. of 45 Medicin e amlodipine 2021-0 Yes 2.5mg Take 2.5 [facility] (NORVASC) 3-28 mg by College 2.5 MG 09:20: mouth of tablet 45 daily. Medicin e TAMSULOSIN 2021-0 Yes 10mg Take 10 mg [facility] HCL OR 3-28 by mouth. College 09:20: 1 cap qhs of 45 Medicin e cetirizine, 2021-0 Yes 10mg Take 10 mg [facility] ZYRTEC, 10 -28 by mouth Colle ge MG tablet 09:20: every of 45 evening. Medicin e Zinc 100 MG No Take by [facility] TABS 06-28 mouth. College 09:20: 00:00 of 45 :00 Medicin e Silodosin 8 2021- No 8mg Take 8 mg [facility]ash MG CAPS 06-28 by mouth [place] 09:20: 00:00 nightly. of 42 :00 Medicin e Metoprolol 2021- No 50mg Take [address] [facility] Succinate 06-28 by mouth Colle ge 50 MG CS24 09:20: 00:00 two times o f 36 :00 daily. Medicin e Docusate 2021- No [id number] Take 3 [facility] Calcium 06-28 capsules [place] (STOOL 09:20: 00:00 by mouth of SOFTENER 33 :00 nightly. Medicin OR) e Ascorbic No 500mg Take 500 [facility] benito Acid 06-28 mg by [place] (VITAMIN C) 09:20: 00:00 mouth. of 500 MG CAPS 27 :00 Medicin e memantine 2020-04 Yes TAKE 1 [facility] (NAMENDA) 2-21 TABLET BY [facility] ge 10 MG 00:00: MOUTH of tablet 00 TWICE A Medicin DAY e rabeprazole Yes 1{tbl} Take 1 Tab [facility] (ACIPHEX) 9-27 by mouth 2 Manny ege 20 MG 13:52: times of tablet 25 daily. Medicin e Docusate Yes [id number] Take 3 [facility] benito Calcium 9-27 capsules [place] (STOOL 13:52: by mouth of SOFTENER 25 nightly. Medicin OR) e aspirin 81 Yes 81mg Take 81 mg [facility] MG tablet 9-27 by mouth Colleg e 13:52: daily. of 25 Medicin e finasteride Yes 5mg Take 5 mg [facility] (PROSCAR) 5 -27 by mouth Manny ege MG tablet 13:52: daily. of 25 Medicin e amlodipine Yes 2.5mg Take 2.5 [facility] (NORVASC) 9-27 mg by [place] 2.5 MG 13:52: mouth of tablet 25 daily. Medicin e Metoprolol Yes 50mg Take 50 mg [facility] Succinate 9-27 by mouth Colleg e 50 MG CS24 13:52: two times of 25 daily. Medicin e Silodosin 8 Yes 8mg Take 8 mg [facility] MG CAPS - by mouth [place] 13:52: nightly. of 25 Medicin e TAMSULOSIN Yes 10mg Take 10 mg [facility] HCL OR 9-27 by mouth. [place] 13:52: 1 cap qhs of 25 Medicin e cetirizine, Yes 10mg Take [address] [facility] ZYRTEC, 9-27 by mouth [place] (ZYRTEC 13:52: every of ALLERGY) 10 25 evening. Medi janis MG tablet e Ascorbic Yes 500mg Take 500 [facility] Acid 9-27 mg by [place] (VITAMIN C) 13:52: mouth. of 500 MG CAPS 25 Medicin e Zinc 100 MG Yes Take by [facility] benito TABS - mouth. [place] 13:52: of 25 Medicin e rabeprazole Yes 1{tbl} Take 1 Tab [facility] (ACIPHEX) - by mouth 2 Manny ege 20 MG 13:52: times of tablet 25 daily. Medicin e Docusate Yes [id number] Take 3 [facility] benito Calcium -27 capsules [place] (STOOL 13:52: by mouth of SOFTENER 25 nightly. Medicin OR) e aspirin 81 Yes 81mg Take 81 mg [facility] MG tablet 12-28 by mouth Colleg e 13:52: daily. of 25 Medicin e finasteride Yes 5mg Take 5 mg [facility] (PROSCAR) 5 - by mouth Manny ege MG tablet 13:52: daily. of 25 Medicin e amlodipine Yes 2.5mg Take 2.5 [facility] (NORVASC) 9-27 mg by [place] 2.5 MG 13:52: mouth of tablet 25 daily. Medicin e Metoprolol Yes 50mg Take 50 mg [facility] Succinate 9-27 by mouth Colleg e 50 MG CS24 13:52: two times of 25 daily. Medicin e Silodosin 8 Yes 8mg Take 8 mg [facility] MG CAPS -27 by mouth [place] 13:52: nightly. of 25 Medicin e TAMSULOSIN Yes 10mg Take 10 mg [facility] HCL OR -27 by mouth. [place] 13:52: 1 cap qhs of 25 Medicin e cetirizine, Yes 10mg Take 10 mg [facility] ZYRTEC, 12-28 by mouth [place] (ZYRTEC 13:52: every of ALLERGY) 10 25 evening. Medi janis MG tablet e Ascorbic Yes 500mg Take 500 [facility] Acid 9-27 mg by [place] (VITAMIN C) 13:52: mouth. of 500 MG CAPS 25 Medicin e Zinc 100 MG Yes Take by Os[facility]o benito TABS 12-28 mouth. [place] 13:52: of 25 Medicin e rivastigmin Yes 9mg Take 2 [facility] (EXELON) 9-27 Capsules Colle ge 4.5 MG 00:00: by mouth of capsule 00 two times Medicin daily. e carbidopa-l Yes Take 1.5 [facility] evodopa -27 tab qa, [place] (SINEMET) 00:00: 1.5 in the of 25-250 MG 00 afternoon, Medi janis per tablet and 1 tab e every evening rivastigmin Yes TAKE 2 [facility] e [...] Medicin DAY e memantine Yes TAKE [address] [facility] (NAMENDA) 9-09 TABLET BY Colle ge [...] 00 EVERY DAY Medicin e sertraline Yes 100 mg = 1 M emoria 100 mg oral 7-15 tab, PO, l tablet 19:14: Daily, # Jerome 00 30 tab, 1 Refill(s) Aspirin 81 Yes 81 mg = 1 Me moria MG Enteric 7-15 tab, PO, l Coated 19:14: Daily, # Jerome Tablet 00 90 tab, 3 Refill(s) tamsulosin Yes 0.4 mg = 1 M emoria 0.4 mg oral 7-15 cap, PO, l capsule 19:13: Daily, 0 Taj n 00 Refill(s) clonazePAM Yes 0.5 mg = 1 M emoria 0.5 mg oral 7-15 tab, PO, l tablet 19:12: TID, # 90 Taj n 00 tab, 0 Refill(s) Carbidopa Yes 1 tab, PO, Me moria 25 MG / 7-15 TID, # 90 l Levodopa 19:12: tab, 0 Panfilo 250 MG Oral 00 Refill(s) Tablet Metoprolol Yes 50 mg = 1 Me moria Succinate 7-15 tab, PO, l ER 50 mg 19:10: Daily, # Beverly nn oral 00 30 tab, 0 tablet, Refill(s) extended release rivastigmin Yes 3 mg = 1 Me moria e 3 mg oral 7-15 cap, PO, l capsule 19:10: BID, # 60 Beverly nn 00 cap, 3 Refill(s) amLODIPine Yes 2.5 mg = 1 M emoria 2.5 mg oral 7-15 tab, PO, l tablet 19:07: Daily, # Jerome 00 90 tab, 0 Refill(s) sertraline No 100 mg = 1 M emoria 100 mg oral 7-15 tab, PO, l tablet 19:07: Daily, # Jerome 00 30 tab, 0 Refill(s) atorvastati Yes 20 mg = 1 M emoria n 20 mg 7-15 tab, PO, l oral tablet 19:07: Bedtime, # Jerome 00 30 tab, 0 Refill(s) midodrine Yes 10 mg = 1 Mem oria 10 mg oral 7-15 tab, PO, l tablet 19:06: TID, # 270 Beverly nn 00 tab, 0 Refill(s) RABEprazole Yes 40 mg = 2 M emoria 20 mg oral 7-15 tab, PO, l enteric 19:06: Daily, # Taj n coated 00 60 tab, 0 tablet Refill(s) memantine Yes 10 mg = 1 Mem oria 10 mg oral 7-15 tab, PO, l tablet 19:06: BID, # 60 Taj n 00 tab, 0 Refill(s) midodrine Yes 2.5mg Take 1 [facility] (PROAMATINE 6-18 Tablet by Col lege ) 2.5 MG 00:00: mouth two of tablet 00 times Medicin daily. e midodrine Yes 2.5mg Take 1 [facility] (PROAMATINE 6-18 Tablet by Col lege ) 2.5 MG 00:00: mouth two of tablet 00 times Medicin daily. e midodrine 2021- No 2.5mg Take 1 [facility] (PROAMATINE 6-18 03-28 Tablet by Halima nicholas ) 2.5 MG 00:00: 00:00 mouth two of tablet 00 :00 times Medicin daily. e sertraline Yes TAKE 1 [facility] (ZOLOFT) 1-21 TABLET BY Major e 100 MG 00:00: MOUTH of tablet 00 EVERY DAY Medicin e clonazepam 2019-04 Yes Can take [facility] benito (KLONOPIN) 2-30 either College 0.5 MG 00:00: half or 1 of tablet 00 tab at Medicin bedtime e for REM sleep behavior disorder(d james/patria ing). If this dose not enough for symptom control, can use 2 tabs at bedtime. clonazepam 2019-04 Yes Can take [facility] benito (KLONOPIN) 2-30 either College 0.5 MG 00:00: half or 1 of tablet 00 tab at Medicin bedtime e for REM sleep behavior disorder(d james/kick ing). If this dose not enough for symptom control, can use 2 tabs at bedtime. clonazepam 2019-04 Yes Can take [facility] benito (KLONOPIN) 2-30 either College 0.5 MG 00:00: half or 1 of tablet 00 tab at Medicin bedtime e for REM sleep behavior disorder(d james/kick ing). If this dose not enough for symptom control, can use 2 tabs at bedtime. clonazepam 2019-04- No Can take [facility] (KLONOPIN) 2-30 -28 either Colleg e 0.5 MG 00:00: 00:00 half or 1 of tablet 00 :00 tab at Medicin bedtime e for REM sleep behavior disorder(d james/kick ing). If this dose not enough for symptom control, can use 2 tabs at bedtime. memantine 2019-04 Yes TAKE 1 [facility] (NAMENDA) 2-16 TABLET BY [facility] ge 10 MG 00:00: MOUTH of tablet 00 TWICE A Medicin DAY e amlodipine 2019- Yes 2.5mg Take 2.5 [facility] (NORVASC) 6-03 mg by [place] 2.5 MG 18:34: mouth of tablet 47 daily. Medicin e Metoprolol 2020-0 Yes 50mg Take 50 mg [facility] Succinate 6-03 by mouth Colleg e 50 MG CS24 18:34: two times of 47 daily. Medicin e Silodosin 8 2020-0 Yes 8mg Take 8 mg [facility] MG CAPS 6-03 by mouth [place] 18:34: nightly. of 47 Medicin e rabeprazole 2020-0 Yes 1{tbl} Take 1 Tab [facility] (ACIPHEX) 6-03 by mouth 2 Manny ege 20 MG 18:24: times of tablet 15 daily. Medicin e Docusate 2020-0 Yes [id number] Take 3 [facility] benito Calcium 6-03 capsules [place] (STOOL 18:24: by mouth of SOFTENER 15 nightly. Medicin OR) e aspirin 81 2020-0 Yes 81mg Take 81 mg [facility] MG tablet 6-03 by mouth Colleg e 18:24: daily. of 15 Medicin e carbidopa-l 2020-0 Yes Take 1.5 [facility]: 1.5 in the of 25-250 MG 00 afternoon, Medi janis per tablet and 1 tab e every evening carbidopa-l 2020-0 Yes Take 1.5 [facility] 00:00: 1.5 in the of 25-250 MG 00 afternoon, Medi janis per tablet and 1 tab e every evening rivastigmin 2020-0 Yes 6mg Take 2 [facility] (EXELON) 6-03 Caps by Colleg e 3 MG 00:00: mouth two of capsule 00 times Medicin daily. e carbidopa-l 2020-0 Yes Take 1.5 [facility]opa [facility] 00:00: 1.5 in the of 25-250 MG 00 afternoon, Medi janis per tablet and 1 tab e every evening lidocaine-e 2019-0 2020- No 20mL 20 mL, Uni vers pinephrine 07-09 Intraderma it y of (XYLOCAINE 04:15: 04:51 l, ONCE, 1 [place] WITH 00 :00 dose, [facility] Medical EPINEPHRINE 07/09/19 at [facility] ) 1 2315, %-1:100,000 Routine injection 20 mL bacitracin 2020-0 Yes [id number] Apply to Univers 500 4-08 affected ity of unit/gram 00:00: area(s) 4 Tad as ointment 00 (four) Medical times Branch daily. bacitracin 2020-0 Yes [id number] Apply to Univers 500 4-08 affected ity of unit/gram 00:00: area(s) 4 Tad as ointment 00 (four) Medical times Branch daily. ciprofloxac 2020-0 2020- No [id number] 500mg Take 1 Univers in HCl 500 07-09 tablet by ity of mg tablet 00:00: 04:59 mouth [place] 00 :00 every 12 Medical (twelve) Branch hours for 10 days. ciprofloxac 2020-0 2020- No [id number] 4[drp] Place 4 Univers in-dexameth 07-09 Drops in ity of asone 00:00: 04:59 left ear 2 [place] (CIPRODEX) 00 :00 (two) Medical 0.3-0.1 % times Branch otic drops daily for 10 days. finasteride 2018-04 Yes 5mg Take 5 mg [facility] (PROSCAR) 5 2-18 by mouth Manny ege MG tablet 15:06: daily. of 25 Medicin e RABEprazole 0 Yes 20mg Q.5D Take [address] (ACIPHEX) 5-02 by mouth 2 Luke s 20 mg EC 18:21: (two) Medical tablet 19 times Center daily. tamsulosin 0 Yes .4mg QD Take 0.[address] [facility] (FLOMAX) 5-02 mg by [facility] 0.4 mg Cp24 18:21: mouth Medic al 24 hr 19 daily. [place] capsule finasteride 0 Yes 5mg QD Take [address] (PROPECIA) 5-02 by mouth [facility] 1 mg tablet 18:21: daily. [facility] 19 [place] solifenacin 0 Yes 5mg QD Take [address] (VESICARE) 5-02 by mouth [facility] 10 MG 18:21: daily. Medical tablet 19 [place] carbidopa-l Yes 2{tbl} [id number] Take [address] evodopa 5-02 [id number] tablets by [facility] (SINEMET 18:21: 3D mouth 3 Medica l CR) 25-100 19 (three) Center mg per times tablet daily. docusate 0 Yes 100mg Q.5D Take [address] sodium 5-02 mg by [facility] (COLACE) 18:21: mouth 2 Medica l 100 MG 19 (two) Center capsule times daily. aspirin 81 Yes 81mg QD Take [address] MG EC 5-02 by mouth [facility] tablet 18:21: daily. Medical 19 [place] rivastigmin Yes 1{patch QD Place [address] e (EXELON) 5-02 } patch onto Larry es 4.6 mg/24 18:21: the skin Medi mohini hr patch 19 daily. [place] mirabegron 0 Yes 50mg QD Take [address] (MYRBETRIQ) 5-02 by mouth Luke s 50 mg Tb24 18:21: daily. Medic al ER tablet 19 Center memantine Yes 5mg Q.5D Take [address] (NAMENDA) 5 5-02 by mouth 2 Aileen kes MG tablet 18:21: (two) Medical 19 times Center daily. sertraline Yes 100mg QD Take [address] (ZOLOFT) 25 5-02 mg by [facility] MG tablet 18:21: mouth Medical 19 daily. Center aspirin Yes 81mg QD Take 81 mg Meth kristi (ECOTRIN) 4-[address] 81 MG 09:30: daily. Hospita enteric 29 l coated tablet docusate Yes 100mg Take 100 Meth kristi sodium 4-[address] (COLACE) 09:30: mouth. 3 a Hos quynh 100 MG 29 day l capsule solifenacin Yes Method i (VESICARE) 4-17 st 10 MG 00:00: Hospita tablet 00 l ZOLOFT 100 Yes [facility] mg tablet 3-30 st 00:00: Hospita 00 l SINEMET Yes [facility] 25-100 mg 3-30 st per tablet 00:00: Hospita 00 l finasteride Yes 5mg QD Take 5 mg M ethodi (PROSCAR) 5 3-[address] mg tablet 00:00: once Hospita 00 daily. l RABEprazole Yes TAKE 1 Meth kristi (ACIPHEX) 2-[address] 20 mg EC 00:00: ORAL ROUTE Hos quynh tablet 00 2 TIMES l EVERY DAY tamsulosin Yes [facility] (FLOMAX) 2-03 st 0.4 mg 00:00: Hospita capsule,ext 00 l ended release 24hr Vital Signs Vital Name Observation Time Observation Value Comments Source Systolic blood 2021-06-28 14:20:00 138 mm[Hg] [facility] pressure Medicine Diastolic blood 2021-06-28 14:20:00 78 mm[Hg] [facility] of pressure Medicine Heart rate 2021-06-28 14:20:00 62 /min [facility] Body weight 2021-06-28 14:20:00 79.379 kg [facility] BMI 2021-06-28 14:20:00 25.11 kg/m2 [facility] Systolic blood 2020-12-28 18:47:00 135 mm[Hg] [facility] Medicine Diastolic blood 2020-12-28 18:47:00 74 mm[Hg] [facility] Medicine Heart rate 2020-12-28 18:47:00 58 /min [facility] Body weight 2020-12-28 18:47:00 83.144 kg [facility] BMI 2020-12-28 18:47:00 26.30 kg/m2 [facility] Systolic blood 2020-06-29 15:20:00 103 mm[Hg] [facility] Diastolic blood 2020-06-29 15:20:00 61 mm[Hg] [facility] Heart rate 2020-06-29 15:20:00 60 /min [facility] Respiratory rate 2020-06-29 15:20:00 12 /min [facility] Body height 2020-06-29 15:20:00 177.8 cm [facility] Body weight 2020-06-29 15:20:00 90.719 kg [facility] BMI 2020-06-29 15:20:00 28.70 kg/m2 [facility] Systolic blood 2019-07-10 07:31:00 114 mm[Hg] [facility] Diastolic blood 2019-07-10 07:31:00 68 mm[Hg] Unive rs[facility] Heart rate 2019-07-10 07:31:00 68 /min [facility] Body temperature 2019-07-10 07:31:00 36.78 Marjorie Univ ersity of [facility] Respiratory rate 2019-07-10 07:31:00 16 /min [facility] saturation in 2019-07-10 07:31:00 93 /min [facility] Arterial blood by [facility] Pulse oximetry Branch Body weight 2019-07-10 01:55:[address] [facility] Systolic (mm Hg) 2020-10-15 18:38:00 Zain Whittaker Diastolic (mm Hg) 2020-10-15 18:38:00 [facility] chase Whittaker Heart Rate 2020-10-15 18:38:00 [facility] Panfilo Respitory Rate 2020-10-15 18:38:00 Janak Bashir Procedures Procedure Date / Time Performed Performing Clinician [facility] e EXTERNAL PROVIDER 2019-07-24 05:01:00 Doctor Unassigned, No [facility] RECORDS Name Medical Branch Cholecystectomy<sup>2 [facility] ermann </sup> Appendectomy<sup>1</s [facility] ermann up> Plan of Care Planned Activity Planned Date Details Comments Source Future Scheduled 2021-12-03 HEPATITIS B VACCINES Met [facility] Test 09:41:45 (1 of 3 - 3-dose series) [code = HEPATITIS B VACCINES (1 of 3 - 3-dose series)] Future Scheduled 2021-12-03 COVID-19 VACCINE (#1) [facility] Test 09:41:45 [code = COVID-19 VACCINE (#1)] Future Scheduled 2021-12-03 COLONOSCOPY SCREENING [facility] Test 09:41:45 [code = COLONOSCOPY SCREENING] Future Scheduled 2021-12-03 SHINGLES VACCINES (1 Met [facility] Test 09:41:45 of 2) [code = SHINGLES VACCINES (1 of 2)] Future Scheduled 2021-12-03 65+ [facility] VACCINE (1 - PCV) [code = 65+ PNEUMOCOCCAL VACCINE (1 - PCV)] Future Scheduled 2021-12-03 INFLUENZA VACCINE Method [facility] Test 09:41:45 [code = INFLUENZA VACCINE] Future Scheduled 2021-06-[address] [facility] Col lege of Test 09:20:49 malignant neoplasm of Medici ne colon (procedure) [code = 533913800] Future Scheduled 2021-06-28 TETANUS SHOT (ADULT) [facility] of Test 09:20:49 [code = TETANUS SHOT Medicin e (ADULT)] Future Scheduled 2021-06-28 BMI FOLLOW UP PLAN [facility] of Test 09:20:49 [code = BMI FOLLOW UP Medici ne PLAN] Future Scheduled 2021-06-28 Hepatitis C screening [facility] of Test 09:20:49 (procedure) [code = Medicine [id number]] Future Scheduled 2021-06-28 ZOSTER VACCINE (1 of [facility] of Test 09:20:49 2) [code = ZOSTER Medicine VACCINE (1 of 2)] Future Scheduled 2021-06-28 Pneumococcal 65+ (1 of B [facility] of Test 09:20:49 1 - PPSV23) [code = Medicine Pneumococcal 65+ (1 of 1 - PPSV23)] Future Scheduled 2021-06-28 MEDICARE AWV (Initial) [facility] of Test 09:20:49 [code = MEDICARE AWV Medicin e (Initial)] Future Scheduled 2021-06-28 FLU VACCINE > 6 MONTHS B [facility] of Test 09:20:49 [code = FLU VACCINE > Medici ne 6 MONTHS] Future Scheduled 2021-06-28 COVID-19 Vaccine (3 - Ba [facility] of Test 09:20:49 Booster for Moderna Medicine series) [code = COVID-19 Vaccine (3 - Booster for Moderna series)] Future Scheduled 2021-06-28 FALL SCREEN [code = [facility] of Test 09:20:49 FALL SCREEN] Medicine Future Scheduled 2020-12-28 FALL SCREEN [code = [facility] of Test 13:44:09 FALL SCREEN] Medicine Future Scheduled 2020-12-[address] [facility] Col lege of Test 13:44:09 malignant neoplasm of Medic ne colon (procedure) [code = 755061538] Future Scheduled 2020-12-28 TETANUS SHOT (ADULT) [facility] of Test 13:44:09 [code = TETANUS SHOT Medicin e (ADULT)] Future Scheduled 2020-12-28 BMI FOLLOW UP PLAN [facility] of Test 13:44:09 [code = BMI FOLLOW UP Medici ne PLAN] Future Scheduled 2020-12-28 Hepatitis C screening [facility] of Test 13:44:09 (procedure) [code = Medicine [id number]] Future Scheduled 2020-12-28 ZOSTER VACCINE (1 of [facility] of Test 13:44:09 2) [code = ZOSTER Medicine VACCINE (1 of 2)] Future Scheduled 2020-12-28 PNEUMOVAX >=[address] [facility] Co llege of Test 13:44:09 (PPSV23) [code = Medicine PNEUMOVAX >=65 (PPSV23)] Future Scheduled 2020-12-28 FLU VACCINE > 6 MONTHS B [facility] Test 13:44:09 [code = FLU VACCINE > Medici ne 6 MONTHS] Future Scheduled 2020-12-28 FALL SCREEN [code = [facility] of Test 13:44:09 FALL SCREEN] Medicine Future Scheduled 2020-12-[address] [facility] Col lege of Test 13:44:09 malignant neoplasm of Medici ne colon (procedure) [code = [id number]] Future Scheduled 2020-12-28 TETANUS SHOT (ADULT) [facility] Test 13:44:09 [code = TETANUS SHOT Medicin e (ADULT)] Future Scheduled 2020-12-28 BMI FOLLOW UP PLAN [facility] Test 13:44:09 [code = BMI FOLLOW UP Medici ne PLAN] Future Scheduled 2020-12-28 Hepatitis C screening [facility] Test 13:44:09 (procedure) [code = Medicine [id number]] Future Scheduled 2020-12-28 ZOSTER VACCINE (1 of [facility] Test 13:44:09 2) [code = ZOSTER Medicine VACCINE (1 of 2)] Future Scheduled 2020-12-28 PNEUMOVAX >=[address] [facility] [employer] of Test 13:44:09 (PPSV23) [code = Medicine PNEUMOVAX >=65 (PPSV23)] Future Scheduled 2020-12-28 FLU VACCINE > 6 MONTHS B [facility] Test 13:44:09 [code = FLU VACCINE > Medici ne 6 MONTHS] Future Scheduled Screening for [facility] Col lege of Test malignant neoplasm of Medici ne colon (procedure) [code = 119122298] Future Scheduled TETANUS SHOT (ADULT) [facility] Test [code = TETANUS SHOT Medicin e (ADULT)] Future Scheduled BMI FOLLOW UP PLAN [facility] Test [code = BMI FOLLOW UP Medici ne PLAN] Future Scheduled Hepatitis C screening [facility] Test (procedure) [code = Medicine [id number]] Future Scheduled ZOSTER VACCINE (1 of [facility] of Test 2) [code = ZOSTER Medicine VACCINE (1 of 2)] Future Scheduled FALL SCREEN [code = [facility] of Test FALL SCREEN] Medicine Future Scheduled PNEUMOVAX >=[address] [facility] of Test (PPSV23) [code = Medicine PNEUMOVAX >=65 (PPSV23)] Future Scheduled FLU VACCINE > 6 MONTHS B [facility] Test [code = FLU VACCINE > Medici ne 6 MONTHS] Encounters Start End Encounter Admission Attending Care Care Encounter Source Date/Time Date/Time Type Type Clinicians Facility Department ID 2021-06-28 2021-06-28 Office PHONG MARQUEZ [id number] [facility] 09:13:10 10:32:00 Visit STEF AMBULATOR 350.1.13.21 College Y 0.2.7.2.686 of [id number] [facility] janis 800 e 2020-12-28 2020-12-28 Office PHONG Marquez [id number] [facility] 13:07:10 13:22:10 Visit Stef AMBULATOR 350.1.13.21 College Y 0.2.7.2.686 of [id number] [facility] janis 800 e 2020-10-15 2020-10-16 Outpatient nullFlavo MNA [id number] Memoria 18:45:00 04:59:59 r Neurology 00 l Carol Ann Whittaker 2020-10-15 2020-10-15 Outpatient Karina MISCHER MHMISCHER [id number] 13:45:00 23:59:59 Christiano 00 Yuri 2020-10-15 2020-10-15 Outpatient KATEIE KATEIE [id number] [facility] 13:45:00 13:45:00 00 l Panfilo 2020-06-29 2020-06-29 Office PHONG Marquez [id number] [facility] 09:41:34 09:56:34 Visit Stef AMBULATOR 350.1.13.21 College Y 0.2.7.2.686 of [id number] [facility] janis 800 e 2019-07-24 2019-07-24 Orders Doctor MORRIS [id number] [facility] 00:00:00 00:00:00 Only Unassigned, KHURRAM 350.1.13.10 ity of [facility] 4.2.7.2.686 Tad as [id number] [facility] mohini [address] 2019-07-09 2019-07-10 Emergency Shayy Nicole TRAUMA [id number] Univers 20:42:57 02:57:00 Colton Lomas SENEY 350.1.13.10 ity of 4.2.7.2.686 Kashif egan [id number] [address] 2019-07-09 2019-07-09 Emergency X [facility] ERT [id number] Univers 20:42:57 20:42:57 ity of [facility] Results Test Description Test Time Test Comments [...] SOURCE(BEAKER) (test code = 2795) BASIC METABOLIC [id number] 05:53:00 Test Item Value Reference Range Interpretation [...] PATIEN TS. CBC W/PLT COUNT & AUTO [id number] 05:39:00 Test Item Value Reference Range Interpretation [...] PERCENT (BEAKER) (test code = 2801) POCT-GLUCOSE [id number] 12:48:00 Test Item Value Reference Range Interpretation Comments POC-GLUCOSE METER 111 mg/dL 70-110 H TESTED AT [facility] 67 ([facility] (test code = [facility] 1538) [id number] POCT-GLUCOSE [id number] 06:51:00 Test Item Value Reference Range Interpretation Comments POC-GLUCOSE METER 113 mg/dL 70-110 H TESTED AT [place] [address] ([facility]) (test code = [facility] 1538) [address] BASIC METABOLIC [id number] 04:35:00 Test Item Value Reference Range Interpretation [...] PATIEN TS. CBC W/PLT COUNT & AUTO [id number] 04:10:00 Test Item Value Reference Range Interpretation [...] ABSOLUTE COUNT 0.64 K/ L 0.04-0.54 H ([facility]) (test code = 416) BASOPHILS ABSOLUTE COUNT ([facility]) 0.06 K/ L 0.01-0.08 (test code = 417) IMMATURE GRANULOCYTES-RELATIVE 0 % 0-1 PERCENT ([facility]) (test code = 2801) POCT-GLUCOSE [id number] 03:43:00 Test Item Value Reference Range Interpretation Comments POC-GLUCOSE METER 177 mg/dL 70-110 H TESTED AT [place] [address] ([facility]) (test code = [employer] [facility] 1538) [address] POCT-GLUCOSE [id number] 22:34:00 Test Item Value Reference Range Interpretation Comments POC-GLUCOSE METER 128 mg/dL 70-110 H TESTED AT [place] [address] ([facility]) (test code = [employer] [place] 1538) [address] POCT-GLUCOSE [id number] 22:19:00 Test Item Value Reference Range Interpretation Comments POC-GLUCOSE METER 126 mg/dL 70-110 H TESTED AT [place] [address] ([facility]) (test code = [employer] [place] 1538) [address] POCT-GLUCOSE [id number] 12:26:00 Test Item Value Reference Range Interpretation Comments POC-GLUCOSE METER 136 mg/dL 70-110 H TESTED AT [place] [address] ([facility]) (test code = [employer] [place] 1538) [address] POCT-GLUCOSE [id number] 08:22:00 Test Item Value Reference Range Interpretation Comments POC-GLUCOSE METER 108 mg/dL 70-110 TESTED AT [place] [address] ([facility]) (test code = [employer] [facility] 1538) [address] CT BRAIN WITHOUT IV CONTRAST - [id number] 08:16:00Reason for exam:->SDHFINAL REPORT CT Head without [...] head CT technique, there is questionable trace extra- axial thickening in the right lateral temporal region which may represent the stated history of subdural hematoma. However, it is not definitive given the portable CT technique, and thereis no significant mass effect. There is no other definitive portable CT evidence for infarct or hemorrhage. There is generalized parenchymal volume loss without hydrocephalus or midline shift. The skull is intact. IMPRESSION: Questionable trace right lateral temporal region subdural hematoma given theclinical history. However, comparison with outside imaging and attention on follow-up is recommended. Signed: Shelby Antunez MDReport Verified Date/Time: 07/30/2017 08:16:45 Reading Location: [facility] B1 C013V Neuro Reading Room MAGNESIUM 2017-07-30 05:36:00 Test Item Value Reference Range Interpretation Comments MAGNESIUM (BEAKER) 2.1 mg/dL 1.6-2.6 Specimen slightly (test code = 627) hemolyzed Once on admission and Daily AM afterwardsOnce on admission and Daily AM afterwardsOnce on admission and Daily AM [id number] 05:36:00 Test Item Value Reference Range Interpretation [...] Daily AM afterwardsCBC W/PLT COUNT & AUTO [id number] 04:16:00 Test Item Value Reference Range Interpretation [...] PERCENT (BEAKER) (test code = 2801) POCT-GLUCOSE [id number] 22:02:00 Test Item Value Reference Range Interpretation Comments POC-GLUCOSE METER 118 mg/dL 70-110 H TESTED AT [facility] 6720 (BEAKER) (test code = [place] 1538) [address] URINALYSIS W/ [id number] 18:07:00 Test Item Value Reference Range Interpretation [...] 516) SOURCE(BEAKER) (test code = 2795) TROPONIN [id number] 17:06:00 Test Item Value Reference Range Interpretation [...] acute neurological disease, and persistent tachyarrhythmia.HEPATIC FUNCTION [id number] 15:29:00 Test Item Value Reference Range Interpretation [...] = < U/L 6-55 L 347) PROTHROMBIN [id number] 15:11:00 Test Item Value Reference Range Interpretation Comments PROTIME (BEAKER) (test code = 13.9 seconds 11.7-14.7 759) INR (BEAKER) (test code = 370) 1.1 <=5.9 RECOMMENDED COUMADIN/WARFARIN INR THERAPY RANGESSTANDARD DOSE: 2.0 - 3.0 Includes: PROPHYLAXIS for venous thrombosis, systemic embolization; TREATMENT for venous thrombosis and/or pulmonary embolus.HIGH RISK: Target INR is 2.5-3.5 for patients with mechanical heart valves.[id number] 15:11:00 Test Item Value Reference Range Interpretation Comments PARTIAL THROMBOPLASTIN TIME 29.9 seconds 22.5-36.0 (BEAKER) (test code = 760)
[2021-12-16 13:26] LABS: Absolute Lymphocytes (CBC) 1.8 K/uL (0.7-4.9); Hematocrit 44.5 % (39.6-49.0); MCV 89.8 fL (80-100); MPV 6.5 fL (7.6-11.3); RBC Red Blood Cell Count 4.95 M/uL (4.33-5.43)
[2021-12-16] MEDS ORDERED: HYDRALAZINE HCL 20 MG/ML VIAL ONE (13:38)
[2021-12-16 13:46] LABS: Albumin 3.7 g/dL (3.4-5.0); Bilirubin Direct 0.2 mg/dL (0-0.2); Bilirubin Total 0.6 mg/dL (0.2-1.0); Potassium 3.6 mmol/L (3.5-5.1); Protein, Total 6.8 g/dL (6.4-8.2); Troponin High Sensitivity 18.7 pg/mL (<58.9)
--- NOTE | 2021-12-16 13:50 | RAD REPORT ---
EXAM DESCRIPTION: RAD - Chest Single View - 12/16/2021 1:41 pm CLINICAL HISTORY: SOB Chest pain. COMPARISON: Chest Single View dated 11/03/2021; Chest Pa And Lat (2 Views) dated 10/20/2021; Chest Pa A nd Lat (2 Views) dated 09/28/2021; Chest Pa And Lat (2 Views) dated 06/09/2021 FINDINGS: Portable technique limits examination quality. A large left pleural effusion is present. Right lung is grossly clear. Cardiac size cannot evaluated. No displaced fractures. IMPRESSION: Large left pleural effusion.
[2021-12-16 14:03] LABS: Protime INR 1.04
--- NOTE | 2021-12-16 14:40 | RAD REPORT ---
EXAM DESCRIPTION: CT - Chest For Pe Angio - 12/16/2021 2:13 pm CLINICAL HISTORY: Chest pain. shortness of breath COMPARISON: Thorax Wo Con dated 05/21/2021; Stone Protocol dated 05/11/2021 TECHNIQUE: CT angiogram of the pulmonary arteries was performed with MIP. All CT scans are performed using dose optimization technique as appropriate and may include automated exposure control or mA/KV adjustment according to patient size. FINDINGS: No evidence of pulmonary thromboembolism. No acute aortic finding demonstrated. There is a large left pleural effusion present with significant atelectasis of the left lung. The rig ht lung is mildly emphysematous but clear. No right-sided pleural effusion or evidence of significant pericardial effusion. No concerning bony finding. 29 mm partially visualized right renal cyst. IMPRESSION: No evidence of pulmonary thromboembolism. Large left pleural effusion with significant left lung atelectasis.
--- NOTE | 2021-12-16 15:05 | EDPHYS ---
Physician Documentation [facility] Name: Osman Foy Jr Age: 71 yrs Sex: Male : 1950 Arrival Date: 12/16/2021 Time: 10:57 Bed 18 Private MD: Tiffanie Hobson C ED Physician Erich Sierra HPI: 12/16 12:20 This 71 yrs old Male presents to ER via Wheelchair with complaints of Breathing cp Difficulty. 12:20 The patient has shortness of breath at rest, worse when lying flat. cp 12:20 Onset: The symptoms/episode began/occurred 2 day(s) ago. Duration: The symptoms are cp continuous, and are steadily getting worse. The patient's shortness of breath is alleviated by sitting up. 12:20 Associated signs and symptoms: Pertinent negatives: chest pain, diaphoresis, fever, cp hemoptysis, vomiting. Severity of symptoms: in the emergency department the symptoms are unchanged despite home interventions. when diagnosed with fluid in left lung. Patient reports lung was drained by DR Ventura. Historical: - Allergies: 11:07 No Known Allergies; tw2 - Home Meds: 15:48 carbidopa-levodopa 25-250 mg oral TbDi 1 tab [Active]; memantine 10 mg Oral tab 2 times ld1 per day [Active]; tamsulosin 0.4 mg oral cap 1 cap once daily [Active]; sertraline 100 mg Oral tab 1.5 tabs once daily [Active]; rivastigmine tartrate 3 mg Oral cap 2 caps 2 times per day [Active]; midodrine 10 mg Oral tab 1 tab 3 times per day [Active]; atorvastatin 20 mg Oral tab 1 tab once daily [Active]; rabeprazole 20 mg Oral TbEC 1 tab once daily [Active]; fludrocortisone 0.1 mg oral tab 1 tab once daily [Active]; finasteride 5 mg oral tab 1 tab once daily [Active]; bupropion HCl 100 mg Oral tab 1 tab [Active]; trazodone 100 mg Oral tab 1 tab once daily [Active]; - PMHx: 11:07 Hypertensive disorder; Parkinsons; tw2 - PSHx: 11:07 Appendectomy; Cholecystectomy; tw2 - Immunization history:: Client reports receiving the 2nd dose of the Covid vaccine. - Social history:: Smoking status: Patient denies any tobacco usage or history of. ROS: 12:25 Constitutional: Negative for body aches, chills, fever, poor PO intake. cp 12:25 Eyes: Negative for injury, pain, redness, and discharge. cp 12:25 ENT: Negative for drainage from ear(s), ear pain, sore throat, difficulty swallowing, difficulty handling secretions. 12:25 Cardiovascular: Negative for chest pain, edema, palpitations. 12:25 Respiratory: Positive for orthopnea, shortness of breath, at rest. Negative for cough, wheezing. 12:25 Abdomen/GI: Negative for abdominal pain, nausea, vomiting, and diarrhea. 12:25 Back: Negative for pain at rest, pain with movement. 12:25 Skin: Negative for cellulitis, rash. 12:25 Neuro: Positive for weakness, Negative for altered mental status, dizziness, headache, syncope. 12:25 All other systems are negative. Exam: 12:30 Constitutional: The patient appears in no acute distress, alert, awake, cp non-diaphoretic, non-toxic, well developed, well nourished. 12:30 Head/Face: Normocephalic, atraumatic. cp 12:30 Eyes: Periorbital structures: appear normal, Conjunctiva: normal, no exudate, no cp injection, Sclera: no appreciated abnormality, Lids and lashes: appear normal, bilaterally. 12:30 ENT: External ear(s): are unremarkable, Nose: is normal, Mouth: Lips: moist, Oral mucosa: pink and intact, moist, Posterior pharynx: Airway: no evidence of obstruction, patent. 12:30 Neck: ROM/movement: is normal, is supple, without pain, no range of motions limitations. 12:30 Chest/axilla: Inspection: normal, Palpation: is normal, no crepitus, no tenderness. 12:30 Cardiovascular: Rate: normal, Rhythm: regular, Edema: is not appreciated, JVD: is not appreciated. 12:30 Respiratory: the patient does not display signs of respiratory distress, Respirations: shallow respirations, that is mild, Breath sounds: decreased breath sounds, that are severe, are heard in the left posterior upper lobe and left posterior lower lobe, stridor, is not appreciated, wheezing: is not appreciated. 12:30 Abdomen/GI: Inspection: abdomen appears normal, Palpation: abdomen is soft and non-tender, in all quadrants. 12:30 Neuro: Orientation: to person, place \T\ time. Mentation: is normal, Motor: moves all fours, Sensation: is normal. 12:30 Skin: cellulitis, is not appreciated, no rash present. cp 12:41 ECG was reviewed by the Attending Physician. cp Vital Signs: 11:05 BP 167 / 82; Pulse 82; Resp 17; Temp 98.2(TE); Pulse Ox 99% on R/A; Weight 79.38 kg tw2 (R); Height 5 ft. 10 in. (177.80 cm); Pain 0/10; 12:24 BP 187 / 100; Pulse 74; Resp 30; Pulse Ox 98% on R/A; Pain 0/10; ld1 13:42 BP 188 / 94; Pulse 70; Resp 24; Pulse Ox 98% on R/A; ld1 14:50 BP 176 / 86; Pulse 82; Resp 18; Pulse Ox 98% on R/A; ld1 15:44 BP 186 / 110; Pulse 85; Resp 18; Pulse Ox 99% on R/A; ld1 16:22 BP 164 / 100; Pulse 93; Resp 18; Pulse Ox 98% on R/A; ld1 17:00 BP 151 / 87; Pulse 93; Resp 24; Pulse Ox 97% on R/A; ld1 18:00 BP 151 / 87; Pulse 93; Resp 18; Pulse Ox 97% on R/A; eh3 19:00 BP 165 / 92; Pulse 95; Resp 22; Pulse Ox 98% on R/A; eh3 20:00 BP 155 / 85; Pulse 99; Resp 26; Pulse Ox 94% on R/A; eh3 11:05 Body Mass Index 25.11 (79.38 kg, 177.80 cm) tw2 MDM: 12:17 Patient medically screened. cp 12/16 12:16 Order name: Basic Metabolic Panel; Complete Time: 13:59 cp 12/16 13:59 Interpretation: Normal except: GFR 70. cp 12/16 12:16 Order name: CBC with Diff; Complete Time: 13:31 cp 12/16 13:31 Interpretation: Normal except: MPV 6.5; [place]% 75.3. cp 12/16 12:16 Order name: LFT's; Complete Time: 13:59 cp 15 12:16 Order name: Magnesium; Complete Time: 13:59 cp 15 12:16 Order name: NT PRO-BNP; Complete Time: 13:59 cp 15 12:16 Order name: PT-INR; Complete Time: 14:53 cp 12/16 12:16 Order name: Troponin HS; Complete Time: 13:59 cp 12/16 12:16 Order name: XRAY Chest (1 view); Complete Time: 13:59 cp 12/16 13:32 Order name: CT Chest For PE Angio; Complete Time: 14:53 cp 12/16 14:53 Interpretation: Report reviewed. cp 12/16 16:35 Order name: SARS RAPID ld1 12/16 12:16 Order name: EKG; Complete Time: 12:17 cp 12/16 12:16 Order name: Cardiac monitoring; Complete Time: 12:26 cp 12/16 12:16 Order name: EKG - Nurse/Tech; Complete Time: 13:05 cp 12/16 12:16 Order name: IV Saline Lock; Complete Time: 13:24 cp 12/16 12:16 Order name: Labs collected and sent; Complete Time: 13:24 cp 12/16 12:16 Order name: O2 Per Protocol; Complete Time: 12:26 cp 12/16 12:16 Order name: O2 Sat Monitoring; Complete Time: 12:26 cp EC:41 Rate is 69 beats/min. Rhythm is regular. TN interval is normal. QRS interval is normal. cp QT interval is normal. T waves are Inverted in lead aVR. Interpreted by me. Reviewed by me. Administered Medications: 13:33 Drug: hydrALAZINE 10 mg Route: IVP; Site: left antecubital; ld1 15:11 Follow up: Response: No adverse reaction; Blood pressure is lowered ld1 14:58 CANCELLED (Physician Discretion): Lasix (furosemide) 20 mg IVP once; give over 2 minutescp 15:10 Drug: Lasix (furosemide) 40 mg Route: IVP; Site: left antecubital; ld1 16:31 Follow up: Response: No adverse reaction ld1 20:28 Drug: Valium (diazepam) 2 mg Route: IVP; Site: right antecubital; eh3 Disposition Summary: 12/16/21 15:04 Hospitalization Ordered Hospitalization Status: Inpatient Admission cp Provider: Prince arian Eldridge Location: Telemetry/MedSurg (Inpatient) cp Condition: Stable cp Problem: an acute exacerbation cp Symptoms: are unchanged cp Bed/Room Type: Standard cp Room Assignment: 201(12/16/21 19:57) cg Diagnosis - Pleural effusion, not elsewhere classified cp - Dyspnea cp Forms: - Medication Reconciliation Form cp - SBAR form cp Signatures: Dispatcher [employer] EDMS Marc Stubbs FNP-C FNP-Cla1 Erich Leyva PA PA cp Yolanda Saunders, RN RN cg Carol Liao RN RN tw2 Ananya Bruno RN RN ld1 Munira Gaines RN RN eh3 Corrections: (The following items were deleted from the chart) 14:58 14:57 Lasix (furosemide) 20 mg IVP once; give over 2 minutes ordered. cp cp 19:57 15:04 cp cg
--- NOTE | 2021-12-16 15:05 | ER ---
Nurse's Notes [facility] Name: Osman Foy Jr Age: 71 yrs Sex: Male : 1950 Arrival Date: 12/16/2021 Time: 10:57 Bed 18 Private MD: Tiffanie Hobson C Diagnosis: Pleural effusion, not elsewhere classified;Dyspnea Presentation: 12/16 11:05 Chief complaint: Spouse and/or significant other states: the last couple of days he is tw2 having a hard time breathing. when he woke up this morning he is really struggling with it. Chief complaint: Spouse and/or significant other states: a couple of months ago he has had some fluid taking out of his LEFT lung i dont know it it has come back. Chief complaint: Spouse and/or significant other states: his breathing is worse when he lays flat. Coronavirus screen: At this time, the client does not indicate any symptoms associated with coronavirus-19. Ebola Screen: Patient denies travel to an Ebola-affected area in the 21 days before illness onset. Initial Sepsis Screen: Does the patient meet any 2 criteria? No. Patient's initial sepsis screen is negative. Does the patient have a suspected source of infection? No. Patient's initial sepsis screen is negative. Risk Assessment: Do you want to hurt yourself or someone else? Patient reports no desire to harm self or others. Onset of symptoms was December 16, 2021. 11:05 Method Of Arrival: Wheelchair tw2 11:05 Acuity: SHELIA 3 tw2 Triage Assessment: 11:07 General: Appears in no apparent distress. well groomed, Behavior is calm, cooperative, tw2 appropriate for age. Pain: Denies pain. Neuro: Level of Consciousness is awake, alert, obeys commands, Oriented to person, place, time, situation. Respiratory: Reports shortness of breath since just the last few days Onset: The symptoms/episode began/occurred last couple of days, the patient has mild shortness of breath. Respiratory: Airway is patent Respiratory effort is even, unlabored, Respiratory pattern is regular, symmetrical. Historical: - Allergies: 11:07 No Known Allergies; tw2 - Home Meds: 15:48 carbidopa-levodopa 25-250 mg oral TbDi 1 tab [Active]; memantine 10 mg Oral tab 2 times ld1 per day [Active]; tamsulosin 0.4 mg oral cap 1 cap once daily [Active]; sertraline 100 mg Oral tab 1.5 tabs once daily [Active]; rivastigmine tartrate 3 mg Oral cap 2 caps 2 times per day [Active]; midodrine 10 mg Oral tab 1 tab 3 times per day [Active]; atorvastatin 20 mg Oral tab 1 tab once daily [Active]; rabeprazole 20 mg Oral TbEC 1 tab once daily [Active]; fludrocortisone 0.1 mg oral tab 1 tab once daily [Active]; finasteride 5 mg oral tab 1 tab once daily [Active]; bupropion HCl 100 mg Oral tab 1 tab [Active]; trazodone 100 mg Oral tab 1 tab once daily [Active]; - PMHx: 11:07 Hypertensive disorder; Parkinsons; tw2 - PSHx: 11:07 Appendectomy; Cholecystectomy; tw2 - Immunization history:: Client reports receiving the 2nd dose of the Covid vaccine. - Social history:: Smoking status: Patient denies any tobacco usage or history of. Screenin:24 Abuse screen: Denies threats or abuse. Denies injuries from another. Nutritional ld1 screening: No deficits noted. Tuberculosis screening: No symptoms or risk factors identified. Fall Risk None identified. Assessment: 12:24 General: Appears in no apparent distress. comfortable, Behavior is calm, cooperative, ld1 appropriate for age. Pain: Denies pain. Neuro: Level of Consciousness is awake, alert, obeys commands, Oriented to person, place, time, situation. Cardiovascular: Capillary refill < 3 seconds Patient's skin is warm and dry. Rhythm is regular. Respiratory: Airway is patent Respiratory effort is even, labored, Respiratory pattern is regular, symmetrical, Breath sounds are clear bilaterally. GI: Abdomen is flat, non-distended. : No signs and/or symptoms were reported regarding the genitourinary system. EENT: No signs and/or symptoms were reported regarding the EENT system. Derm: No signs and/or symptoms reported regarding the dermatologic system. Musculoskeletal: No signs and/or symptoms reported regarding the musculoskeletal system. 14:50 Reassessment: Patient appears in no apparent distress at this time. No changes from ld1 previously documented assessment. Patient states symptoms have improved. 15:01 Reassessment: Linda Foy - Janet - [phone]. ld1 17:00 Reassessment: Patient appears in no apparent distress at this time. No changes from ld1 previously documented assessment. Patient and/or family updated on plan of care and expected duration. Pain level reassessed. 17:00 Reassessment: Patient appears in no apparent distress at this time. Patient is alert, ld1 oriented x 3, equal unlabored respirations, skin warm/dry/pink. Patient denies pain at this time. 18:00 Reassessment: Patient and/or family updated on plan of care and expected duration. Pain eh3 level reassessed. Patient is alert, oriented x 3, equal unlabored respirations, skin warm/dry/pink. Patient denies pain at this time. 19:00 Reassessment: Patient and/or family updated on plan of care and expected duration. Pain eh3 level reassessed. Patient is alert, oriented x 3, equal unlabored respirations, skin warm/dry/pink. Patient denies pain at this time. Vital Signs: 11:05 BP 167 / 82; Pulse 82; Resp 17; Temp 98.2(TE); Pulse Ox 99% on R/A; Weight 79.38 kg tw2 (R); Height 5 ft. 10 in. (177.80 cm); Pain 0/10; 12:24 BP 187 / 100; Pulse 74; Resp 30; Pulse Ox 98% on R/A; Pain 0/10; ld1 13:42 BP 188 / 94; Pulse 70; Resp 24; Pulse Ox 98% on R/A; ld1 14:50 BP 176 / 86; Pulse 82; Resp 18; Pulse Ox 98% on R/A; ld1 15:44 BP 186 / 110; Pulse 85; Resp 18; Pulse Ox 99% on R/A; ld1 16:22 BP 164 / 100; Pulse 93; Resp 18; Pulse Ox 98% on R/A; ld1 17:00 BP 151 / 87; Pulse 93; Resp 24; Pulse Ox 97% on R/A; ld1 18:00 BP 151 / 87; Pulse 93; Resp 18; Pulse Ox 97% on R/A; eh3 19:00 BP 165 / 92; Pulse 95; Resp 22; Pulse Ox 98% on R/A; eh3 20:00 BP 155 / 85; Pulse 99; Resp 26; Pulse Ox 94% on R/A; eh3 11:05 Body Mass Index 25.11 (79.38 kg, 177.80 cm) tw2 ED Course: 10:57 Patient arrived in ED. mr 10:57 Tiffanie Hobson MD is Private Physician. mr 11:05 Arm band placed on. tw2 11:07 Triage completed. tw2 12:15 Erich Leyva PA is PHCP. cp 12:15 Erich Sierra MD is Attending Physician. cp 12:24 Ananya Bruno, JOSE is Primary Nurse. ld1 12:24 Patient has correct armband on for positive identification. Placed in gown. Bed in low ld1 position. Call light in reach. Side rails up X2. personnel monitor on. Pulse ox on. NIBP on. Door closed. Noise minimized. Warm blanket given. 12:24 No provider procedures requiring assistance completed. ld1 13:24 Inserted saline lock: 20 gauge in left antecubital area, using aseptic technique. Blood ld1 collected. 13:43 XRAY Chest (1 view) In Process Unspecified. EDMS 14:15 CT Chest For PE Angio In Process Unspecified. EDMS 15:03 Prince Eldridge MD is Hospitalizing Provider. cp 15:56 Barrera cath inserted, using sterile technique, 16 Fr., balloon inflated, to gravity ld1 drainage, other Inserted by [employer] [facility] student nurse with student nurse instructor. returned clear yellow urine. Patient tolerated well. 16:47 SARS RAPID Sent. ld1 21:52 Patient admitted, IV remains in place. eh3 Administered Medications: 13:33 Drug: hydrALAZINE 10 mg Route: IVP; Site: left antecubital; ld1 15:11 Follow up: Response: No adverse reaction; Blood pressure is lowered ld1 14:58 CANCELLED (Physician Discretion): Lasix (furosemide) 20 mg IVP once; give over 2 minutescp 15:10 Drug: Lasix (furosemide) 40 mg Route: IVP; Site: left antecubital; ld1 16:31 Follow up: Response: No adverse reaction ld1 20:28 Drug: Valium (diazepam) 2 mg Route: IVP; Site: right antecubital; eh3 Medication: 12:24 VIS not applicable for this client. ld1 Outcome: 15:04 Decision to Hospitalize by Provider. cp 21:51 Admitted to Med/surg accompanied by nurse, via stretcher, room 201, with chart, Report eh3 called to JOSE Schneider 21:51 Condition: stable 21:51 Instructed on the need for admit. 21:52 Patient left the ED. eh3 Signatures: Dispatcher [employer] ED GonzalezShanita diaz mr Erich Leyva PA PA cp Carol Liao RN RN tw2 Ananya Bruno RN RN ld1 Munira Gaines, RN RN eh3
[2021-12-16] MEDS ORDERED: FUROSEMIDE 20 MG/ 2ML VIAL ONE (15:15)
[2021-12-16 17:22] LABS: SARS-CoV-2 Antigen Rapid Res Negative (Negative)
[2021-12-16] MEDS ORDERED: CETIRIZINE HCL 5 MG TABLET PO PRN (18:42)
[2021-12-16] MEDS ORDERED: PANTOPRAZOLE 40MG TABLET PO ONE ×2 (19:00→19:30)
[2021-12-16] MEDS ORDERED: ONDANSETRON 4 MG/2 ML VIAL IV ONE (19:28)
[2021-12-16] MEDS ORDERED: CETIRIZINE HCL 5 MG TABLET ONE (19:30)
[2021-12-16] MEDS ORDERED: ATORVASTATIN 20 MG TAB ONE (19:31)
[2021-12-16] MEDS ORDERED: DIAZEPAM 2 MG TABLET ONE (19:31)
[2021-12-16] MEDS ORDERED: TAMSULOSIN 0.4 MG SR CAP ONE (19:31)
--- NOTE | 2021-12-16 19:37 | P.HP ---
Certification for Inpatient With expected LOS: >2 Midnights Practitioner: I am a practitioner with admitting privileges, knowledge of patient current condition, hospital course, and medical plan of care. Services: Services provided to patient in accordance with Admission requirements found in Title 42 Section 412.3 of the Code of Federal Regulations Patient History Date of Service: 12/16/21 Primary Care Provider: Dr. Hobson Reason for admission: Pleural Effusion History of Present Illness: Mr. Foy is a 71yo male with a history of asbestosis, orthostatic hypotension, and Parkinson's. About three months ago pt had a pleual effusion drained per Dr. Gee. For the past two weeks, pt has been having increased dyspnea. He does not ambulate well secondary to the Parkinson's. Mr. Foy was seen in the ED today and it was noted that his left lung has a large pleural effusion with some atelectasis. As he lacks mobility, a CT was performed and a PE was excluded. Pt will be admitted for drainage of left pleural effusion. Home medications have been entered. Allergies No Known Allergies Allergy (Verified 11/03/21 07:59) Home medications list reviewed: Yes Home Medications: Carbidopa/Levodopa [Carbidopa-Levo 25-100 mg Odt] 1 each PO TID 08/11/17 Finasteride [Proscar] 5 mg PO DAILY 08/11/17 Memantine HCl 5 mg PO BID 08/11/17 Mirabegron [Myrbetriq] 50 mg PO DAILY 08/11/17 Rabeprazole Sodium [Aciphex] 20 mg PO BID 08/11/17 Rivastigmine 4.6 mg TOP DAILY 08/11/17 Sertraline HCl 100 mg PO DAILY 08/11/17 Solifenacin Succinate [Vesicare] 10 mg PO DAILY 08/11/17 Tamsulosin HCl 0.4 mg PO BID 08/11/17 buPROPion HCL [Bupropion HCl Sr] 1 tab PO DAILY AFTER SUPPER 11/03/21 - Past Medical/Surgical History Diabetic: No -: Parkinsons -: Brain bleed -: appendectomy -: vasectomy -: cholecystectomy - Family History Mother -: Cancer Father -: Cancer Sister -: Cancer - Social History Smoking Status: Unknown if ever smoked Alcohol use: No CD- Drugs: No Caffeine use: No Place of Residence: Home (Pt lives at home with his ) Review of Systems General: Weakness, Malaise Eyes: Unremarkable ENT: Unremarkable Respiratory: Shortness of Breath, SOB with Excertion, Wheezing, As per HPI Cardiovascular: Unremarkable Gastrointestinal: Unremarkable Genitourinary: Unremarkable Musculoskeletal: As per HPI Integumentary: Unremarkable Neurological: Weakness Physical Examination - Physical Exam General: Alert, Cooperative, Mild distress HEENT: Normocephalic Respiratory: Diminished, Other (tachypneic) Capillary refill: <2 Seconds Gastrointestinal: Normal bowel sounds Musculoskeletal: Other (generalized weakness) Integumentary: No rashes Neurological: Abnormal strength (gait not tested), Abnormal tone Urinary: Other (justice in place with 1500 ml in the bag) External genitalia: Deferred Rectal: Deferred - Studies Laboratory Data (last 24 hrs) 12/16/21 13:18: PT 12.3, INR 1.04 12/16/21 13:18: WBC 10.20, Hgb 14.9, Hct 44.5, Plt Count 230 12/16/21 13:18: Sodium 140, Potassium 3.6, BUN 16, Creatinine 1.11, Glucose 104, Magnesium 2.0, Total Bilirubin 0.6, AST 12 L, ALT 11 L, Alkaline Phosphatase 105 Assessment and Plan - Problems (Diagnosis) (1) Dyspnea and respiratory abnormalities Current Visit: Yes Status: Acute Plan: Admit to hospital for pleural effusion drainage. Hold blood thinner for today, I-S, vitals, follow labs (2) Parkinson disease Current Visit: Yes Status: Acute Plan: Continue current medications, bedrest with bathroom privileges, I-S. Out of bed with assist. Neuro checks/vital signs q 4h while awake. Discharge Plan: Home Plan to discharge in: 48 Hours - Advance Directives Does patient have a Living Will: Yes Does patient have a Durable POA for Healthcare: No - Code Status/Comfort Care Code Status Assessed: Yes Code Status: Full Code Time Spent Managing Pts Care (In Minutes): 70
[2021-12-16] MEDS ORDERED: ONDANSETRON 4 MG (ODT) TAB ONE (19:41)
[2021-12-16] MEDS ORDERED: ONDANSETRON 4 MG/2 ML VIAL ONE (19:45)
[2021-12-16] MEDS ORDERED: DIAZEPAM 10 MG/2 ML INJ SYRINGE ONE (19:45)
[2021-12-16] MEDS: ALBUTEROL 2.5 MG/3 ML NEB SOL NEB SCH (19:50)
[2021-12-16] MEDS ORDERED: ALBUTEROL 2.5 MG/3 ML NEB SOL ONE (19:58)
[2021-12-16 19:59] VITALS: BMI 25.1
[2021-12-16] MEDS ORDERED: TAMSULOSIN 0.4 MG SR CAP PO ONE (20:00)
[2021-12-16] MEDS: ATORVASTATIN 20 MG TAB PO SCH (20:11)
[2021-12-16] MEDS: MIDODRINE HCL 5 MG TABLET PO SCH (21:00)
[2021-12-16] MEDS ORDERED: MEMANTINE HCL 10 MG TABLET ONE (21:52)
[2021-12-16] MEDS ORDERED: FINASTERIDE 5 MG TAB ONE (21:52)
[2021-12-16] MEDS ORDERED: RIVASTIGMINE TARTRATE 1.5 MG ONE (21:52)
[2021-12-16] MEDS: D5 0.9 NS 1,000 ML IV SCH (22:34)
[2021-12-16] MEDS: MEMANTINE HCL 10 MG TABLET PO SCH (22:46)
[2021-12-16] MEDS: CARBIDOPA/LEVODOPA 25/250 TAB PO SCH (22:46)
[2021-12-16] MEDS: RIVASTIGMINE TARTRATE 1.5 MG PO SCH (22:46)
[2021-12-16] MEDS: buPROPion HCL 100 MG TAB PO SCH (22:47)
[2021-12-16] MEDS: TRAZODONE 50 MG TABLET PO SCH (22:47)
[2021-12-16] MEDS: FINASTERIDE 5 MG TAB PO SCH (22:48)
[2021-12-17] MEDS: ALBUTEROL 2.5 MG/3 ML NEB SOL NEB SCH ×4 (02:00→20:05)
[2021-12-17 06:14] LABS: Hematocrit 40.9 % (39.6-49.0); Lymphocytes % 16.2 % (15.3-44.8); MCV 90.4 fL (80-100); MPV 7.5 fL (7.6-11.3); RBC Red Blood Cell Count 4.52 M/uL (4.33-5.43)
[2021-12-17 06:17] LABS: Protime INR 1.12
[2021-12-17 06:44] LABS: AST/SGOT 11 U/L (15-37); Albumin 3.3 g/dL (3.4-5.0); Alkaline Phosphatase 93 U/L (45-117); BUN Blood Urea Nitrogen 19 mg/dL (7-18); Bicarbonate 31 mmol/L (21-32); Bilirubin Total 0.5 mg/dL (0.2-1.0); Glomerular Filtration Rate 44 ml/min (=/>90); Glucose Level 124 mg/dL (74-106); HDL Cholesterol 38 mg/dL (40-60); LDL Cholesterol, Calculated 42 mg/dL (<130); Magnesium 1.9 mg/dL (1.8-2.4); Phosphorus 4.1 mg/dL (2.5-4.9); Potassium 3.3 mmol/L (3.5-5.1); Sodium Level 144 mmol/L (136-145)
[2021-12-17 06:50] LABS: ALT/SGPT < 10 U/L (12-78)
[2021-12-17] MEDS ORDERED: PNEUMOCOCCAL VACCINE 0.5 ML IMVAC ONE (08:00)
[2021-12-17] MEDS: KCL 20 MEQ/100 mL IVPB 20 MEQ/100 ML BAG IV SCH ×2 (09:42→14:03)
[2021-12-17] MEDS: SERTRALINE HCL 100 MG TAB PO SCH (09:51)
[2021-12-17] MEDS: buPROPion HCL 100 MG TAB PO SCH ×2 (09:51→22:04)
[2021-12-17] MEDS: MIDODRINE HCL 5 MG TABLET PO SCH ×3 (09:51→22:03)
[2021-12-17] MEDS: CARBIDOPA/LEVODOPA 25/250 TAB PO SCH ×3 (09:52→21:00)
[2021-12-17] MEDS: MEMANTINE HCL 10 MG TABLET PO SCH ×2 (09:52→22:01)
[2021-12-17] MEDS ORDERED: LIDOCAINE 1% MPF 5 ML VIAL IJ ONE (11:00)
--- NOTE | 2021-12-17 12:23 | P.OP ---
Preoperative diagnosis: LEFT Recurrent Pleural Effusion Postoperative diagnosis: LEFT Recurrent Pleural Effusion Primary procedure: Placement of LEFT Thoracic PleurX thoracic catheter Anesthesia: 1% Lidocaine Estimated blood loss: <2cc Specimen: pleural fluid sent Findings: straw colored pleural fluid Complications: None Drain(s): Other (PleurX catheter ) Transferred to: Other (Floor Room) Condition: Good
--- NOTE | 2021-12-17 12:26 | RAD REPORT ---
EXAM DESCRIPTION: RAD - Chest Single View - 12/17/2021 12:05 pm CLINICAL HISTORY: post chest tube placement COMPARISON: Portable December 16 TECHNIQUE: AP portable chest image was obtained 12/17/2021 12:05 pm . FINDINGS: Left-side chest tube has been placed. Two is in the left lung base with the tip in the med ial lung base. There is no pneumothorax on the left. Small to moderate left pleural effusion is present substantiall y reduced from the preprocedure examination. No acute pleural or parenchymal process in the right hem ithorax. Heart and vasculature are normal. No measurable pleural effusion and no pneumothorax. No acu te bony abnormality seen. No acute aortic findings suspected. IMPRESSION: Placement of a chest tube into the left lung base. Left-sided pleural effusion has subst antially reduced in size. No pneumothorax.
--- NOTE | 2021-12-17 12:34 | EKG ---
Test Date: 2021-12-16 Test Time: 12:41:35 Centrifugal Screen Tender: CÉSAR MEASUREMENT RESULTS: Intervals: Rate: 69 KS: 128 QRSD: 90 QT: 420 QTc: 450 Long Eddy: P: 45 KS: 128 QRS: 55 T: 37 INTERPRETIVE STATEMENTS: Normal sinus rhythm Normal ECG Compared to ECG 08/11/2017 16:22:47 No significant changes Electronically Signed On 12-17-21 12:32:14 CDT by Lance Espinoza
--- NOTE | 2021-12-17 13:00 | P.PN ---
Subjective Date of Service: 12/17/21 Primary Care Provider: Dr. Hobson Chief Complaint: Pleural Effusion Patient is s/p Pleurx catheter is improving shortness of breath is improving admitted with massive left-sided pleural effusion Review of Systems General: Weakness Respiratory: Shortness of Breath Physical Examination - Vital Signs Temperature: 97.8 F Blood Pressure: 100/63 Pulse: 73 Respirations: 16 Pulse Ox (%): 90 - Physical Exam General: Alert Neck: Supple Respiratory: Diminished (On the left side) - Studies Laboratory Data (last 24 hrs) 12/16/21 13:18: PT 12.3, INR 1.04 12/16/21 13:18: WBC 10.20, Hgb 14.9, Hct 44.5, Plt Count 230 12/16/21 13:18: Sodium 140, Potassium 3.6, BUN 16, Creatinine 1.11, Glucose 104, Magnesium 2.0, Total Bilirubin 0.6, AST 12 L, ALT 11 L, Alkaline Phosphatase 105 Assessment And Plan - Current Problems (Diagnosis) (1) Pleural effusion Current Visit: Yes Status: Acute Plan: Patient is 71 years of age admitted with massive left-sided recurrent pleural effusion probably is malignant patient has had a Pleurx catheter placed in the good response possible discharge tomorrow chemistries and cytologies have been sent patient is mildly hypoxic Home medications reconciled
[2021-12-17] MEDS: MORPHINE 2 MG/ML SYR IV PRN ×2 (13:13→18:48)
[2021-12-17] MEDS ORDERED: HOME MED 1 EA UNK (Midodrine Hcl [Midodrine Hcl] 10 MG Tablet) PO SCH (14:00)
[2021-12-17] MEDS: RIVASTIGMINE TARTRATE 1.5 MG PO SCH ×2 (14:00→22:01)
[2021-12-17] MEDS ORDERED: HOME MED 1 EA UNK (Carbidopa/Levodopa [Carbidopa-Levo 25-100 Mg Odt] Tab.Rapdis) PO SCH (14:00)
[2021-12-17] MEDS: FLUDROCORTISONE 0.1 MG TAB PO SCH (14:00)
[2021-12-17 14:35] LABS: Body Fluid WBC 264 /mm^3
[2021-12-17 15:49] LABS: Appearance SLT. TURBID (CLEAR); Body Fluid Source PLEURAL; Color of fluid Yellow (COLORLESS)
[2021-12-17] MEDS ORDERED: BUPROPION HCL 100 MG PO SCH (17:30)
[2021-12-17] MEDS: D5 0.9 NS 1,000 ML IV SCH (17:38)
[2021-12-17 17:42] LABS: Specific Gravity > 1.030 (1.005-1.030); Urine Bacteria 20-50 /HPF (<20); Urine Bilirubin NEGATIVE (Negative); Urine Blood 3+ (OVER) (Negative); Urine Clarity Turbid (Clear); Urine Color Yellow (Yellow); Urine Glucose NEGATIVE (Negative); Urine Mucus 2+ /HPF (None Seen); Urine Protein 2+ (Negative); Urine RBC >50 /HPF (None Seen); Urine Urobilinogen Normal (Normal); Urine pH 5.5 (5.0-7.0)
--- NOTE | 2021-12-17 17:43 | CON ---
Date of Consultation: 12/17/2021 Brief History Of Present Illness: Patient is a 71-year-old male with a history of asbestosis, orthos tatic hypertension, Parkinson disease, who had multiple pleural effusions drained by Dr. Gee and has had recurrence of his pleural effusion in the left thoracic space. He has significant effusion despite multiple taps in the past. Per description, he had a CT performed where a pulmonary embolus was excluded, but had significant accumulation of left thoracic fluid/pleural fluid. As such, I am c onsulted for discussion of placement of a PleurX indwelling left thoracic catheter. Past Medical History: Significant for Parkinson's, intracranial hemorrhage, appendectomy, vasectomy, cholecystectomy. Family History: Mother had cancer. Father had cancer. Sister had cancer. Social History: He denies smoking, alcohol, or recreational drug use. He lives at home with his wif e. is present during examination and assists with information. Allergies: NO KNOWN DRUG ALLERGIES. Home Medications: Include carbidopa/levodopa, Proscar, amantadine, Myrbetriq, Aciphex, rivastigmine, sertraline, VESIcare, tamsulosin, bupropion . Review of Systems: Other than HPI, currently denies. Physical Examination: At the time of my examination: General: He is awake, alert, and oriented. Psychiatric: Appropriate, conversive. HEENT: He is normocephalic. Sclerae anicteric. Mucous membranes are moist. Oropharynx clear. Neck: Supple without JVD. Chest: Normal expansion and excursion. Cardiovascular: Regular rate and rhythm. Respiratory: He has absent breath sounds on the left and normal breath sounds on the right. Skin: Warm and dry otherwise. Laboratory Data: He had a laboratory exam, which revealed a white blood cell count of 12.1, hemoglob in is 13.9, hematocrit 40.9, platelet count was 227. Coags showed a PT 12.3, INR 1.12, PTT is 33.6. His chemistry showed a sodium 144, potassium 2.3, chloride 105, carbon dioxide 31, BUN 19, creatinin e 1.63, glucose is 124. AST 11, ALT less than 10, alkaline phosphatase 93. COVID was negative. He had imaging performed including a CTA on 12/16 officially read as large left pleural effusion with si gnificant left lung atelectasis. No evidence of pulmonary thromboembolism. Assessment And Plan: This is a 71-year-old male who comes in with a recurrent left pleural effusion. 1.IV fluid hydration. 2.Medical management. 3.I explained the risks, benefits, and alternatives of placement of a tunneled left thoracic PleurX catheter including, but not limited to bleeding; infection; damage to surrounding tissues; injury to heart, lungs, great vessels; and need for more surgery. Patient and his agreed to proceed as in dicated. TK/MODL Voice ID: [id number] Report ID: [id number]
[2021-12-17] MEDS ORDERED: ATORVASTATIN 20 MG TAB PO SCH (21:00)
[2021-12-17] MEDS ORDERED: HOME MED 1 EA UNK (Trazodone Hcl [Trazodone Hcl] 100 MG Tablet) PO SCH (21:00)
[2021-12-17] MEDS ORDERED: TAMSULOSIN 0.4 MG SR CAP PO SCH (21:00)
[2021-12-17] MEDS ORDERED: HOME MED 1 EA UNK (Memantine Hcl [Memantine Hcl] 5 MG Tablet) PO SCH (21:00)
[2021-12-17] MEDS ORDERED: HOME MED 1 EA UNK (Rivastigmine Tartrate [Rivastigmine] 3 MG Capsule) PO SCH (21:00)
[2021-12-17] MEDS: ATORVASTATIN 20 MG TAB PO SCH (22:02)
[2021-12-17] MEDS: TRAZODONE 50 MG TABLET PO SCH (22:02)
[2021-12-17] MEDS: FINASTERIDE 5 MG TAB PO SCH (22:02)
--- NOTE | 2021-12-17 23:10 | OP ---
Date of Procedure: 12/17/2021 Surgeon: Ty Ulrich MD, Preoperative Diagnosis: Left recurrent pleural effusion. Postoperative Diagnosis: Left recurrent pleural effusion. Procedure Performed: Placement of a left thoracic PleurX catheter. Anesthesia: 1% lidocaine. Estimated Blood Loss: Less than 2 cc. Specimen: Pleural fluid sent. Findings: Straw-colored pleural fluid sent for analysis. Complications: None. Implants And Drains: PleurX catheter. Disposition: The patient remained in room in good condition throughout the procedure. Procedure In Detail: After informed consent was obtained, the patient was prepped and draped in the usual sterile fashion. After adequate anesthesia was achieved, I incised the area over the 4th and 5 th intercostal space and a tract for a tunneling device. At this point, I then anesthetized the skin , made a small stab incision. Using a finder needle, I then cannulated the left thoracic cavity with out incident or complication. Straw-colored fluid was appreciated at this point. The introducer she eduardo was placed, and I advanced the guidewire into the thoracic cavity. At this point, removed the in troducer sheath. At this point, I made a counter incision in the chest skin inferior to the previous insertion site. I then passed the tunneling device through the insertion site, putting the cuff of the PleurX catheter in the midportion of the area. I then performed sequential dilatation using Seld ambrose technique over the wire going over the rib at this point, and the introducer sheath was placed. At this point, the catheter was placed into the thoracic cavity with minimal air entry. Straw-colo red fluid was appreciated throughout without any evidence of bleeding whatsoever. The catheter was p laced at this point, and the skin was then cleansed once again with ChloraPrep and the skin insertion site was closed using single interrupted 2-0 silk suture, which was . At this point, the entire area was cleansed and the sterile dressing was then placed over top. The catheter was hooked up to a Pleur-evac system and returned over 1.5 L of straw-colored fluid, some of which wa s sent for analysis. Stat chest x-ray will be performed immediately after the procedure. The patien t tolerated the procedure well without complication, remained in the room in good condition throughou t the procedure. All counts correct at the end of case. SITA/RENAN Voice ID: [id number] Report ID: [id number]
[2021-12-18] MEDS: ALBUTEROL 2.5 MG/3 ML NEB SOL NEB SCH ×2 (01:29→08:00)
[2021-12-18 05:48] VITALS: O2SAT 94
[2021-12-18 05:59] LABS: Potassium 3.6 mmol/L (3.5-5.1)
[2021-12-18] MEDS ORDERED: POTASSIUM CL SA 10 MEQ TAB PO ONE ×2 (06:10→09:00)
[2021-12-18] MEDS ORDERED: FINASTERIDE 5 MG TAB PO SCH (09:00)
[2021-12-18] MEDS ORDERED: CEFTRIAXONE 1,000 MG in NA CHLORIDE 0.9% 50 ML IVPB SCH (09:00)
[2021-12-18] MEDS ORDERED: SERTRALINE HCL 100 MG TAB PO SCH (09:00)
[2021-12-18] MEDS ORDERED: FLUDROCORTISONE 0.1 MG TAB PO SCH (09:00)
[2021-12-18] MEDS: RIVASTIGMINE TARTRATE 1.5 MG PO SCH (10:06)
[2021-12-18] MEDS: SERTRALINE HCL 100 MG TAB PO SCH (10:07)
[2021-12-18] MEDS: buPROPion HCL 100 MG TAB PO SCH (10:07)
[2021-12-18] MEDS: MIDODRINE HCL 5 MG TABLET PO SCH ×2 (10:07→13:59)
[2021-12-18] MEDS: CARBIDOPA/LEVODOPA 25/250 TAB PO SCH ×2 (10:07→13:59)
[2021-12-18] MEDS: FLUDROCORTISONE 0.1 MG TAB PO SCH (10:08)
[2021-12-18] MEDS: MEMANTINE HCL 10 MG TABLET PO SCH (10:08)
--- NOTE | 2021-12-18 10:09 | P.PN ---
Subjective Date of Service: 12/18/21 Primary Care Provider: Dr. Hobson Chief Complaint: Pleural Effusion S/p Pleurx catheter patient is doing better shortness of breath is improved although is little drowsy this morning Review of Systems is unable to be obtained Physical Examination - Vital Signs Temperature: 98.5 F Blood Pressure: 127/71 Pulse: 65 Respirations: 18 Pulse Ox (%): 97 - Physical Exam General: Unresponsive Respiratory: Clear to auscultation bilaterally Cardiovascular: No edema, Regular rate/rhythm, Normal S1 S2 Assessment And Plan - Current Problems (Diagnosis) (1) Pleural effusion Current Visit: Yes Status: Acute Plan: S/p left-sided Pleurx catheter patient is improving oxygenation is better chest x-ray has improved significantly still altered may be due to side effect of the medication will DC all narcotics taken the patient once is tolerating a diet possible discharge today mild lymphocytic predominant effusion chemistries reviewed (2) Infection of urinary tract Current Visit: Yes Status: Acute Plan: Urinary tract infection urinalysis suggestive of an infection start on Rocephin cultures are pending Qualifiers: Urinary tract infection type: acute cystitis
--- NOTE | 2021-12-18 10:17 | RAD REPORT ---
EXAM DESCRIPTION: [facility] Single View12/18/2021 9:03 am CLINICAL HISTORY: Pleural effusion with catheter placement COMPARISON: December 17, 2021 FINDINGS: Left chest tube makes a 90 degree turn as it enters the pleural space within the lateral l eft lower hemithorax. No pneumothorax seen. Small left pleural effusion with basilar atelectasis. Equivocal mild right basilar lung opacities. Heart is normal size
--- NOTE | 2021-12-18 11:15 | P.PN ---
Subjective Date of Service: 12/18/21 Primary Care Provider: Dr. Hobson Chief Complaint: Pleural Effusion Subjective: Improving (patient breathing easier now, no complaints) Physical Examination - Vital Signs Temperature: 98.5 F Blood Pressure: 127/71 Pulse: 65 Respirations: 18 Pulse Ox (%): 97 - Physical Exam General: Alert, In no apparent distress, Cooperative Respiratory: Clear to auscultation bilaterally, Other (LEFT chest Pleur X tube i n place, functional.) Assessment And Plan - Current Problems (Diagnosis) (1) Pleural effusion Current Visit: Yes Status: Acute Plan: - PleurX catheter instructions reviewed with patient and family - follow up in 1-2 weeks
[2021-12-18 12:20] VITALS: BP 144/79; TEMP 98
--- NOTE | 2021-12-18 15:19 | P.DS ---
Admission Date: 12/16/21 Discharge Date: 12/18/21 Primary Care Provider: Dr. Hobson Disposition: ROUTINE DISCHARGE Discharge Condition: FAIR Reason for Admission: Pleural Effusion Consultations: Dr. Dutta - Problems (1) Pleural effusion Status: Acute (2) Infection of urinary tract Status: Acute Qualifiers: Urinary tract infection type: acute cystitis Brief History of Present Illness: Patient is 71 years of age admitted with progressive dyspnea I was found to have massive left-sided pleural effusion Hospital Course: PleuRX catheter was inserted by Dr. Remy he dullard the procedure very well. Also had some evidence of unit tract infection and was prescribed an antibiotic patient to follow up with Dr. Quick as instructed through fluid so far showed lymphocytic predominant diffusion I suspect that this is a malignant diffusion.Hospital stay was unremarkable no complication tolerated the procedure well Vital Signs/Physical Exam: Temp Pulse Resp BP Pulse Ox 98.0 F 89 16 144/79 H 96 12/18/21 12:00 12/18/21 12:00 12/18/21 12:00 12/18/21 12:00 12/18/21 12:00 Laboratory Data at Discharge: WBC Cancelled 12/17/21 08:27 Hgb Cancelled 12/17/21 08:27 Hct Cancelled 12/17/21 08:27 Plt Count Cancelled 12/17/21 08:27 PT 12.3 SECONDS (9.5-12.5) 12/17/21 05:09 INR 1.12 12/17/21 05:09 APTT 33.6 SECONDS (24.3-36.9) 12/17/21 05:09 Sodium 142 mmol/L (136-145) 12/18/21 05:27 Potassium 3.6 mmol/L (3.5-5.1) 12/18/21 05:27 BUN 17 mg/dL (7-18) 12/18/21 05:27 Creatinine 1.15 mg/dL (0.55-1.3) 12/18/21 05:27 Glucose 134 mg/dL (74-106) H 12/18/21 05:27 Phosphorus 4.1 mg/dL (2.5-4.9) 12/17/21 05:09 Magnesium 1.9 mg/dL (1.8-2.4) 12/17/21 05:09 Total Bilirubin 0.5 mg/dL (0.2-1.0) 12/17/21 05:09 AST 11 U/L (15-37) L 12/17/21 05:09 ALT < 10 U/L (12-78) L 12/17/21 05:09 Alkaline Phosphatase 93 U/L (45-117) 12/17/21 05:09 Triglycerides 94 mg/dL (<150) 12/17/21 05:09 Cholesterol Cancelled 12/17/21 08:27 HDL Cholesterol 38 mg/dL (40-60) L 12/17/21 05:09 Cholesterol/HDL Ratio 2.61 12/17/21 05:09 Home Medications: Carbidopa/Levodopa [Carbidopa-Levo 25-100 mg Odt] 1 each PO TID 08/11/17 Finasteride [Proscar*] 5 mg PO DAILY 08/11/17 Memantine HCl 10 mg PO BID 08/11/17 Sertraline HCl 1.5 tab PO DAILY 08/11/17 Tamsulosin HCl 0.4 mg PO BEDTIME 08/11/17 buPROPion HCL [Bupropion HCl Sr] 1 tab PO DAILY AFTER SUPPER 11/03/21 Aller-Zyr 10mg 10 mg PO BEDTIME 12/16/21 Atorvastatin Calcium 20 mg PO BEDTIME 12/16/21 Carbidopa/Levodopa [Carbidopa-Levo 25-250 mg Odt] 1 each PO TID 12/16/21 Fludrocortisone [Florinef *] 0.1 mg PO DAILY 12/16/21 Midodrine HCl 10 mg PO TID 12/16/21 Rabeprazole Sodium 20 mg PO BEDTIME 12/16/21 Rivastigmine Tartrate [Rivastigmine] 2 cap PO BID 12/16/21 Trazodone HCl 100 mg PO BEDTIME 12/16/21 Cefpodoxime Proxetil 100 mg PO BID #14 tab 12/18/21 New Medications: Cefpodoxime Proxetil 100 mg PO BID #14 tab Physician Discharge Instructions: PleuroVac instructions as per Dr. Dutta. Antibioitc for UTI faxed Diet: Regular Followup: Jarod Gee MD [ACTIVE - CAN ADMIT] - Felipe Hobson MD [Primary Care Provider] - Ty Ulrich MD [ACTIVE - CAN ADMIT] -
[2021-12-20 20:01] LABS: TOTAL PROTEIN, PLEURAL FLUID 3.4 g/dL
== END 2021-12-18 14:16 | disposition home or self-care (01) | DRG 187 ==
LOC: ER 10:54 → ERHOLD 17:11 → 2ND 20:46
PROVIDERS: ADMIT Internal Medicine; ATTEND Internal Medicine Sleep Medicine
PROC: 0W9B30Z Drainage of Left Pleural Cavity with Drainage Device, Percutaneous Approach (ICD-10-PCS; principal; 2021-12-18)
DX: J90 Pleural effusion, not elsewhere classified (principal); N30.00 Acute cystitis without hematuria; G20 Parkinson's disease; R09.02 Hypoxemia; Z90.49 Acquired absence of other specified parts of digestive tract; Z79.899 Other long term (current) drug therapy; Z20.822 Contact with and (suspected) exposure to COVID-19
CPT/HCPCS: 36415; 51702; 71045; 71275; 80048; 80053; 80061; 80076; 81001; 82945; 83615; 83735; 83880; 84100; 84157; 84311; 84484; 85025; 85610; 85730; 87015; 87070; 87086; 87088; 87102; 87116; 87206; 87811; 88108; 88305; 89050; 93005; 94010; 94640; 94760; 99285; J0360; J1940; J2001; J2270; J2405; J3360; J3480; J7042; Q0162; Q9967

== ENCOUNTER 2022-05-01 10:27 | Emergency (ER) | payer OTHER ==
--- OUTSIDE RECORDS SUMMARY | 2022-05-01 10:32 | XMS REPORT | Continuity of Care Document ---
:1950 Author Organization [facility] t Address [address] [place] [address] Care Team Providers Name Role Phone Felipe Hobson MD Primary Care Physician Felipe Hobson Attending Clinician Unavailable STEF MARQUEZ Attending Clinician Unavailable Stef Marquez MD Attending Clinician Christiano Collins Attending Clinician Doctor Unassigned, [place] Attending Clinician Unavailable Shayy Nicole MD Attending Clinician Colton Lomas MD Attending Clinician MAGDA LIZAMA Attending Clinician Unavailable Colton Lomas MD Admitting Clinician COLTON LOMAS Admitting Clinician Unavailable MAGDA LIZAMA Admitting Clinician Unavailable Payers Payer Name Policy Type Policy Number Effective Date Expiration Date S paty ERS MEDICARE [id number] ADVANTAGE PPO-UHC ZZZERS MEDICARE [id number] ADVANTAGE PPO MEDICARE PART B [id number] [facility]ICARE [facility] [id number] 2011 2011 GRP [id number] [place] 00:00:00 00:00:00 [id number] [place] [id number] [facility] Problems Condition Condition Condition Status Onset Resolution Last Treating Co mments Source Name Details Category Date Date Treatment Clinician Date RBD (REM RBD (REM Disease Active [facility] 3- [facility]lege disorder) disorder) 00:00: of 00 Medicin e 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 10-05 [facility] e 00:00: of 00 Medicin e Parkinson' Parkinson' Disease Active [facility] disease s disease 07-30 [facility] Subd[facility] MCI (mild MCI (mild Disease Active [facility] cognitive cognitive 10-06 [facility] impairment impairment 00:00: of ) with ) with 00 Medicin memory memory e loss loss MCI (mild MCI (mild Disease Active [facility] cognitive cognitive 10-06 [facility] impairment impairment 00:00: of ) with ) with 00 Medicin memory memory e loss loss Dyskinesia Dyskinesia Disease Active Arielle root , , 3-02 College drug-induc drug-induc 00:00: of ed ed 00 Medicin e Syncope Syncope Disease Active 2013-04 [facility] 2-17 College 00:00: of 00 Medicin e Depression Depression Disease [facility] 00:00: of 00 Medicin e Atrial Atrial Problem Active 2020-10-18 Zain anai fibrillati fibrillati 01:01:14 l on on Panfilo (disorder) (disorder) Active Problem 10/18/2020 [facility] Cough Cough Problem Active 2020-10-18 [facility] (finding) (finding) 01:01:14 l Active [place] [facility] [id number] Detrusor Problem Comm on instabilit [facility] History of History Problem Active 2020-10-18 Memoria - of - 01:01:14 l hypertensi hypertensi He rmann on on (context-d (context-d ependent ependent category) category) Active Problem 10/18/2020 [facility] Orthostati Problem Active 2020-10-18 Renetta Bobstati 01:01:14 l hypotensio c Taj n n hypotensio (disorder) n (disorder) Active Problem 10/18/2020 [facility] [id number] Prostate Problem Com mon nodule [facility] [id number] Hydrourete Problem Com mon r on left [facility] [id number] Elevated Problem Comm on PSA [facility] [id number] Incomplete Problem Co mmon emptying Spirit of bladder [facility] [id number] BPH loc w Problem Com mon urin Spirit obs/LUTS [facility] [id number] Urge Problem Common incontinen Spirit ce [facility] Allergies, Adverse Reactions, Alerts Allergy Allergy Status Severity Reaction(s) Onset Inactive Treating Comm ents Source Name Type Date Date Clinician NO KNOWN Drug Active Univers ALLERGIE Class ity of [facility] Family History Family Member Diagnosis Comments Start Date Stop Date Source Natural father Heart attack [facility] Natural mother Cancer [facility] Social History Social Habit Start Date Stop Date Quantity Comments Source History of [facility] - Tobacco Use [facility] Exposure to 2021-06-17 2021-06-27 Not sure [facility] SARS-CoV-2 00:00:00 15:40:00 of Medicine (event) Tobacco use and 2017-07-29 2017-07-29 Never used [facility] dylan exposure 00:00:00 00:00:00 [facility] Alcohol intake 2017-07-29 2017-07-29 [facility]00 non-drinker of [facility] alcohol (finding) Sex Ass[birth year] [facility] landons 00:00:00 00:00:00 [facility] Smoking Status Start Date Stop Date Source Social History [facility] Medications Ordered Filled Start Stop Current Ordering Indication Dosage Frequency Signature Comments Components Source Medication Medication Date Date Medication? Clinician (SIG) Name Name rabeprazole 2021-04 Yes 1{tbl} Take 1 Tab [facility] (ACIPHEX) 1-14 by mouth 2 [facility] 20 MG 14:33: times of tablet 04 daily. Medicin e finasteride 2022-1 Yes 5mg Take 5 mg [facility] (PROSCAR) 5 1-14 by mouth [facility] MG tablet 14:33: daily. of Medicin e TAMSULOSIN 2021-04 Yes 10mg Take 10 mg [facility] HCL OR 1-14 by mouth. College 14:33: 1 cap qhs of Medicin e cetirizine, 2021-04 Yes 10mg Take 10 mg [facility] ZYRTEC, 10 -14 by mouth Colle ge MG tablet 14:33: every of 04 evening. Medicin e aspirin 81 2021-04- No 81mg Take 81 mg [facility] MG tablet 1-14 11-14 by mouth Colle ge 14:32: 00:00 daily. of 56 :00 Medicin e amlodipine 2021-04 2.5mg Take 2.5 [facility] (NORVASC) -14 11-14 mg by [place] 2.5 MG 14:32: 00:00 mouth of tablet 49 :00 daily. Medicin e Trospium Trospium 2021-04- No 1{table QD Trospium Chloride 20 Chloride 20 0-27 03-26 t_at_be Chloride MG MG 00:00: 00:00 dtime_o 20 MG 00 :00 n_an_em pty_sto mach} carbidopa-l 2021-04 Yes 1{tbl} Take 1 [facility] evodopa 0-11 Tablet by [place] (SINEMET) 00:00: mouth 3 of 25-250 MG 00 times Medicin per tablet daily. e Last dose at 6PM rivastigmin Yes 9mg TAKE 2 [facility] (EXELON) 9-20 CAPSULES Colle ge 4.5 MG 00:00: BY MOUTH of capsule 00 TWO TIMES Medicin DAILY e trazodone Yes 100mg Take 1 [facility] (DESYREL) 8-19 Tablet by Colle ge 100 MG 00:00: mouth at of tablet 00 bedtime. Medicin e rabeprazole Yes 1{tbl} Take 1 Tab [facility] (ACIPHEX) 3-28 by mouth 2 Manny ege 20 MG 09:20: times of tablet 45 daily. Medicin e aspirin 81 Yes 81mg Take 81 mg [facility] MG tablet 3-28 by mouth Colleg e 09:20: daily. of 45 Medicin e finasteride Yes 5mg Take 5 mg [facility] (PROSCAR) 5 - by mouth Manny ege MG tablet 09:20: daily. of 45 Medicin e amlodipine Yes 2.5mg Take 2.5 [facility] (NORVASC) -28 mg by [place] 2.5 MG 09:20: mouth of tablet 45 daily. Medicin e TAMSULOSIN Yes 10mg Take 10 mg [facility] HCL OR - by mouth. [place] 09:20: 1 cap qhs of 45 Medicin e cetirizine, Yes 10mg Take 10 mg [facility] ZYRTEC, 10 06-28 by mouth Colle ge MG tablet 09:20: every of 45 evening. Medicin e Zinc 100 MG 2021- No Take by [facility] TABS 06-28 mouth. [place] 09:20: 00:00 of 45 :00 Medicin e Silodosin 8 2021- No 8mg Take 8 mg [facility] MG CAPS 06-28 by mouth [place] 09:20: 00:00 nightly. of 42 :00 Medicin e Metoprolol 2021- No 50mg Take 50 mg [facility] Succinate 06-28 by mouth Colle ge 50 MG CS24 09:20: 00:00 two times o f 36 :00 daily. Medicin e Docusate 2021- No [id number] Take 3 [facility] Calcium 06-28 capsules [place] (STOOL 09:20: 00:00 by mouth of SOFTENER 33 :00 nightly. Medicin OR) e Ascorbic 2021- No 500mg Take 500 [facility] Acid 06-28 mg by [place] (VITAMIN C) 09:20: 00:00 mouth. of 500 MG CAPS 27 :00 Medicin e fludrocorti Yes 100ug Take 1 [facility] sone 06-28 Tablet by [place] (FLORINEF) 00:00: mouth of 0.1 MG 00 every Medicin tablet morning. e Proscar 5 Proscar 5 2021-0 2022- No 1{table QD Proscar 5 MG MG 2-14 10-22 t} MG 00:00: 00:00 00 :00 memantine 2020-04 Yes TAKE 1 [facility] (NAMENDA) 2-21 TABLET BY Colle ge 10 MG 00:00: MOUTH of tablet 00 TWICE A Medicin DAY e memantine 2020-04 Yes TAKE 1 [facility] (NAMENDA) 2-21 TABLET BY Colle ge 10 MG 00:00: MOUTH of tablet 00 TWICE A Medicin DAY e rabeprazole Yes 1{tbl} Take 1 Tab [facility] (ACIPHEX) 9-27 by mouth 2 [facility] 20 MG 13:52: times of tablet 25 daily. Medicin e Docusate Yes [id number] Take 3 [facility] Calcium 9-27 capsules [place] (STOOL 13:52: by mouth of SOFTENER 25 nightly. Medicin OR) e aspirin 81 Yes 81mg Take 81 mg [facility] MG tablet 12-28 by mouth Colleg 13:52: daily. of 25 Medicin e finasteride Yes 5mg Take 5 mg [facility] (PROSCAR) 5 - by mouth Manny ege MG tablet 13:52: daily. of 25 Medicin e amlodipine Yes 2.5mg Take 2.5 [facility] (NORVASC) 9-27 mg by [place] 2.5 MG 13:52: mouth of tablet 25 daily. Medicin e Metoprolol Yes 50mg Take 50 mg [facility] Succinate 9- by mouth Colle e 50 MG CS24 13:52: two times of 25 daily. Medicin e Silodosin 8 Yes 8mg Take 8 mg [facility] MG CAPS 9-27 by mouth [place] 13:52: nightly. of 25 Medicin e TAMSULOSIN Yes 10mg Take 10 mg [facility] HCL OR 9-27 by mouth. [place] 13:52: 1 cap qhs of 25 Medicin e cetirizine, Yes 10mg Take 10 mg [facility] ZYRTEC, 9-27 by mouth [place] (ZYRTEC 13:52: every of ALLERGY) 10 25 evening. Medi janis MG tablet e Ascorbic Yes 500mg Take 500 [facility] Acid 9-27 mg by [place] (VITAMIN C) 13:52: mouth. of 500 MG CAPS 25 Medicin e Zinc 100 MG Yes Take by [facility] TABS - mouth. [place] 13:52: of 25 Medicin e rabeprazole Yes 1{tbl} Take 1 Tab [facility] (ACIPHEX) - by mouth 2 Manny ege 20 MG 13:52: times of tablet 25 daily. Medicin e Docusate Yes [id number] Take 3 [facility] Calcium - capsules [place] (STOOL 13:52: by mouth of SOFTENER 25 [...] Yes 2.5mg Take 2.5 [facility] (NORVASC) - mg by [place] 2.5 MG 13:52: mouth of tablet 25 daily. Medicin e Metoprolol Yes 50mg Take 50 mg [facility] Succinate - by mouth Colleg e 50 MG CS24 13:52: two times of 25 daily. Medicin e Silodosin 8 Yes 8mg Take 8 mg [facility] MG CAPS 12-28 by mouth [place] 13:52: nightly. of 25 Medicin e TAMSULOSIN Yes 10mg Take 10 mg [facility] HCL OR -27 by mouth. [place] 13:52: 1 cap qhs of 25 Medicin e cetirizine, Yes 10mg Take 10 mg [facility] ZYRTEC, - by mouth [place] (ZYRTEC 13:52: every of ALLERGY) 10 25 evening. Medi janis MG tablet e Ascorbic Yes 500mg Take 500 [facility] Acid 9-27 mg by [place] (VITAMIN C) 13:52: mouth. of 500 MG CAPS 25 Medicin e Zinc 100 MG Yes Take by [facility] TABS - mouth. [place] 13:52: of 25 Medicin e rivastigmin 2021-0 Yes 9mg Take 2 [facility] (EXELON) 9-27 Capsules Colle ge 4.5 MG 00:00: by mouth of capsule 00 two times Medicin daily. e carbidopa-l Yes Take 1.5 [facility] evodopa 9-27 tab qa, College (SINEMET) 00:00: 1.5 in the of 25-250 [...] Medicin DAY e memantine Yes TAKE 1 [facility] (NAMENDA) 9-09 TABLET BY Colle ge 10 [...] tab, PO, l tablet 19:14: Daily, # Panfilo 00 30 tab, 1 Refill(s) Aspirin 81 Yes 81 mg = 1 Me moria MG Enteric 7-15 tab, PO, l Coated 19:14: Daily, # [place] Tablet 00 90 tab, 3 Refill(s) sertraline 2020-0 Yes 100 mg = 1 M [place] 100 mg oral 7-15 tab, PO, l tablet 19:14: Daily, # Panfilo 00 30 tab, 1 Refill(s) Aspirin 81 2020-0 Yes 81 mg = 1 Me moria MG Enteric 7-15 tab, PO, l Coated 19:14: Daily, # [place]fil[place] Tablet 00 90 tab, 3 Refill(s) tamsulosin 2020-0 Yes 0.4 mg = 1 M [place] 0.4 mg oral 7-15 cap, PO, l capsule 19:13: Daily, 0 Taj n 00 Refill(s) tamsulosin 2020-0 Yes 0.4 mg = 1 M [place] 0.4 mg oral 7-15 cap, PO, l capsule 19:13: Daily, 0 Taj n 00 Refill(s) clonazePAM 2020-0 Yes 0.5 mg = 1 M [place] 0.5 mg oral 7-15 tab, PO, l tablet 19:12: TID, # 90 Taj n 00 tab, 0 Refill(s) Carbidopa 2020-0 Yes 1 tab, PO, Me moria 25 MG / 7-15 TID, # 90 l Levodopa 19:12: tab, 0 Panfilo 250 MG Oral 00 Refill(s) Tablet clonazePAM 2020-0 Yes 0.5 mg = 1 M emoria 0.5 mg oral 7-15 tab, PO, l tablet 19:12: TID, # 90 Taj n 00 tab, 0 Refill(s) Carbidopa 2020-0 Yes 1 tab, PO, Me moria 25 MG / 7-15 TID, # 90 l Levodopa 19:12: tab, 0 Panfilo 250 MG Oral 00 Refill(s) Tablet Metoprolol 2020-0 Yes 50 mg = 1 Me moria Succinate 7-15 tab, PO, l ER 50 mg 19:10: Daily, # [place] nn oral 00 30 tab, 0 tablet, Refill(s) extended release rivastigmin 2020-0 Yes 3 mg = 1 Me moria e 3 mg oral 7-15 cap, PO, l capsule 19:10: BID, # 60 [place] nn 00 cap, 3 Refill(s) Metoprolol Yes 50 mg = 1 Me [...] tab, PO, l tablet 19:07: Daily, # [place] 00 90 tab, 0 Refill(s) sertraline No 100 mg = 1 M [place] 100 mg oral 7-15 tab, PO, l tablet 19:07: Daily, # [place] 00 30 tab, 0 Refill(s) amLODIPine Yes 2.5 mg = 1 M [place] 2.5 mg oral 7-15 tab, PO, l tablet 19:07: Daily, # [place] 00 90 tab, 0 Refill(s) sertraline No 100 mg = 1 M [place] 100 mg oral 7-15 tab, PO, l tablet 19:07: Daily, # [place] 00 30 tab, 0 Refill(s) atorvastati Yes 20 mg = 1 M [facility]oria n 20 mg 7-15 tab, PO, l oral tablet 19:07: Bedtime, # Panfilo 00 30 tab, 0 Refill(s) atorvastati Yes 20 mg = 1 M emoria n 20 mg 7-15 tab, PO, l oral tablet 19:07: Bedtime, # Panfilo 00 30 tab, 0 Refill(s) midodrine Yes [...] n 00 tab, 0 Refill(s) midodrine Yes 10 mg [...] [facility] (PROAMATINE 6-18 03-28 Tablet by Co cristopher ) 2.5 MG 00:00: 00:00 mouth two of tablet 00 :00 times Medicin daily. e sertraline Yes TAKE 1 [facility] (ZOLOFT) 1-21 TABLET BY Major e 100 MG 00:00: MOUTH of tablet 00 EVERY DAY Medicin e clonazepam 2019-04 Yes Can take [facility] (KLONOPIN) 2-30 either College 0.5 MG 00:00: half or 1 of tablet 00 tab at Medicin bedtime e for REM sleep behavior disorder(d james/patria ing). If this dose not enough for symptom control, can use 2 tabs at bedtime. clonazepam 2019-04 Yes Can take [facility] (KLONOPIN) 2-30 either College 0.5 MG 00:00: half or 1 of tablet 00 tab at Medicin bedtime e for REM sleep behavior disorder(d james/kick ing). If this dose not enough for symptom control, can use 2 tabs at bedtime. clonazepam 2019-04 Yes Can take [facility] (KLONOPIN) 2-30 either College 0.5 MG 00:00: [...] at bedtime. memantine 2019-04 Yes TAKE 1 [facility] (NAMENDA) 2-16 TABLET BY [facility] ge 10 MG 00:00: MOUTH of tablet 00 TWICE A Medicin DAY e amlodipine 2019- Yes 2.5mg Take 2.5 [facility] (NORVASC) 6-03 mg by [place] 2.5 MG 18:34: mouth of tablet 47 daily. Medicin e Metoprolol 2019-0 Yes 50mg Take 50 mg [facility] Succinate 6-03 by mouth Colleg e 50 MG CS24 18:34: two times of 47 daily. Medicin e Silodosin 8 2019-0 Yes 8mg Take 8 mg [facility] MG CAPS 6-03 by mouth [place] 18:34: nightly. of 47 Medicin e rabeprazole 2019-0 Yes 1{tbl} Take 1 Tab [facility] (ACIPHEX) 6-03 by mouth 2 [facility] 20 MG 18:24: times of tablet 15 daily. Medicin e Docusate 2020-0 Yes [id number] Take 3 [facility] Calcium 6-03 capsules [place] (STOOL 18:24: by mouth of SOFTENER 15 nightly. Medicin OR) e aspirin 81 2020-0 Yes 81mg Take 81 mg [facility] MG tablet 6-03 by mouth Colleg e 18:24: daily. of 15 Medicin e carbidopa-l 2019-0 Yes Take 1.5 [facility]: 1.5 in the of 25-250 MG 00 afternoon, Medi janis per tablet and 1 tab e every evening carbidopa-l 2020-0 Yes Take 1.5 [facility] evodopa 6-03 tab qam, [place] (SINEMET) 00:00: 1.5 in the of 25-250 MG 00 afternoon, Medi janis per tablet and 1 tab e every evening rivastigmin 2020-0 Yes 6mg Take 2 [facility] (EXELON) 6-03 Caps by Colleg e 3 MG 00:00: mouth two of capsule 00 times Medicin daily. e carbidopa-l 2020-0 Yes Take 1.5 [facility] 00:00: 1.5 in the of 25-250 MG 00 afternoon, Medi janis per tablet and 1 tab e every evening lidocaine-e 2020-0 2020- No 20mL 20 mL, Uni vers pinephrine 07-09-08 Intraderma it y of (XYLOCAINE 04:15: 04:51 l, ONCE, 1 [place] WITH 00 :00 dose, Tue Medical EPINEPHRINE 07/09/19 at [facility] ) 1 2315, %-1:100,000 Routine injection 20 mL bacitracin 2020-0 Yes [id number] Apply to Univers 500 4-08 affected ity of unit/gram 00:00: area(s) 4 Tad as ointment 00 (four) Medical times Branch daily. bacitracin 2020-0 Yes [id number] Apply to Univers 500 4-08 affected ity of unit/gram 00:00: area(s) 4 Tad as ointment 00 (four) Medical times Branch daily. ciprofloxac 2020-0 2020- No [id number] 500mg Take 1 Univers in HCl 500 07-09- tablet by ity of mg tablet 00:00: 04:59 mouth [place] 00 :00 every 12 Medical (twelve) Branch hours for 10 days. ciprofloxac 2020-0 2020- No [id number] 4[drp] Place 4 Univers in-dexameth 07-09-19 Drops in ity of asone 00:00: 04:59 left ear 2 [place] (CIPRODEX) 00 :00 (two) Medical 0.3-0.1 % times Branch otic drops daily for 10 days. finasteride 2018-04 Yes 5mg Take 5 mg [facility] (PROSCAR) 5 2-18 by mouth [facility] MG tablet 15:06: daily. of 25 Medicin e tamsulosin 2017-0 Yes .4mg QD Take 0.[address] [facility] (FLOMAX) 5-02 mg by [facility] 0.4 mg Cp24 18:21: mouth Medic al 24 hr 19 daily. [place] capsule finasteride 0 Yes 5mg QD Take [address] (PROPECIA) 5-02 by mouth [facility] 1 mg tablet 18:21: daily. Medi mohini 19 [place] solifenacin 0 Yes 5mg QD Take [address] (VESICARE) 5-02 by mouth [facility] 10 MG 18:21: daily. Medical tablet 19 [place] carbidopa-l Yes 2{tbl} Q.[id number] Take [address] evodopa 5-02 [id number] tablets by [facility] (SINEMET 18:21: 3D mouth 3 Medica l CR) 25-100 19 (three) Center mg per times tablet daily. docusate 0 Yes 100mg Q.5D Take [address] sodium 5-02 mg by [facility] (COLACE) 18:21: mouth 2 Medica l 100 MG 19 (two) Center capsule times daily. aspirin 81 0 Yes 81mg QD Take [address] MG EC 5-02 by mouth [facility] tablet 18:21: daily. [facility] 19 [place] rivastigmin Yes 1{patch QD Place [address] [facility] e (EXELON) 5-02 } patch onto Larry es 4.6 mg/24 18:21: the skin [facility] mohini hr patch 19 daily. [place] mirabegron 0 Yes 50mg QD Take [address] (MYRBETRIQ) 5-02 by mouth Luke s 50 mg Tb24 18:21: daily. Medic al ER tablet 19 Center memantine 0 Yes 5mg Q.5D Take [address] (NAMENDA) 5 5-02 by mouth 2 Aileen kes MG tablet 18:21: (two) Medical 19 times Center daily. sertraline 0 Yes 100mg QD Take [address] (ZOLOFT) 25 5-02 mg by [facility] MG tablet 18:21: mouth Medical 19 daily. [place] RABEprazole 2018-0 Yes 20mg Q.5D Take [address] (ACIPHEX) 5-02 by mouth 2 [facility] 20 mg EC 18:21: (two) Medical tablet 19 times Center daily. RABEprazole 2018-0 Yes 20mg Q.5D Take [address] (ACIPHEX) 5-02 by mouth 2 [facility] 20 mg EC 18:21: (two) Medical tablet 19 times Center daily. tamsulosin 2018-0 Yes .4mg QD Take 0.[address] (FLOMAX) 5-02 mg by [facility] 0.4 mg Cp24 18:21: mouth Medic al 24 hr 19 daily. [place] capsule finasteride 0 Yes 5mg QD Take [address] (PROPECIA) 5-02 by mouth [facility] 1 mg tablet 18:21: daily. [facility] 19 [place] solifenacin 0 Yes 5mg QD Take [address] (VESICARE) 5-02 by mouth [facility] 10 MG 18:21: daily. Medical tablet 19 [place] carbidopa-l 0 Yes 2{tbl} Q.[id number] Take [address] evodopa 5-02 [id number] tablets by [facility] (SINEMET 18:21: 3D mouth 3 Medica l CR) 25-100 19 (three) Center mg per times tablet daily. docusate 0 Yes 100mg Q.5D Take [address] sodium 5-02 mg by [facility] (COLACE) 18:21: mouth 2 Medica l 100 MG 19 (two) Center capsule times daily. aspirin 81 2017-0 Yes 81mg QD Take [address] MG EC 5-02 by mouth [facility] tablet 18:21: daily. Medical 19 [place] rivastigmin 2017-0 Yes 1{patch QD Place [address] [facility] e (EXELON) 5-02 } patch onto Larry es 4.6 mg/24 18:21: the skin Medi mohini hr patch 19 daily. [place] mirabegron 0 Yes 50mg QD Take [address] (MYRBETRIQ) 5-02 by mouth Luke s 50 mg Tb24 18:21: daily. Medic al ER tablet 19 Center memantine 2018-0 Yes 5mg Q.5D Take [address] (NAMENDA) 5 5-02 by mouth 2 Aileen kes MG tablet 18:21: (two) Medical 19 times Center daily. sertraline 0 Yes 100mg QD Take [address] (ZOLOFT) 25 5-02 mg by [facility] MG tablet 18:21: mouth Medical 19 daily. Center aspirin Yes 81mg QD Take 81 mg [facility] kristi (ECOTRIN) 4-[address] 81 MG 09:30: daily. Hospita enteric 29 l coated tablet docusate 0 Yes 100mg Take 100 [facility] sodium 4-[address] (COLACE) 09:30: mouth. 3 a [facility] 100 MG 29 day l capsule aspirin Yes 81mg QD Take 81 mg [facility] (ECOTRIN) 4-[address] 81 MG 09:30: daily. Hospita enteric 29 l coated tablet docusate Yes 100mg Take 100 [facility] sodium 4-[address] (COLACE) 09:30: mouth. 3 a [facility] 100 MG 29 day l capsule aspirin 0 Yes 81mg QD Take 81 mg [facility] (ECOTRIN) 4-[address] 81 MG 09:30: daily. Hospita enteric 29 l coated tablet docusate 0 Yes 100mg Take 100 [facility] kristi sodium 4-[address] (COLACE) 09:30: mouth. 3 a [facility] 100 MG 29 day l capsule solifenacin 0 Yes [facility] (VESICARE) 4-17 st 10 MG 00:00: Hospita tablet 00 l solifenacin 2017-0 Yes [facility] (VESICARE[facility] 4-17 [facility] 10 MG 00:00: Hospita tablet 00 l solifenacin 2017-0 Yes [facility] (VESICARE) 4-17 st 10 MG 00:00: Hospita tablet 00 l ZOLOFT 100 2016-0 Yes [facility] mg tablet 3-30 st 00:00: Hospita 00 l SINEMET 2017-0 Yes [facility] 25-100 mg 3-30 st per tablet 00:00: Hospita 00 l SINEMET 2016-0 Yes [facility] 25-100 mg 3-30 st per tablet 00:00: Hospita 00 l ZOLOFT 100 2017-0 Yes [facility] mg tablet 3-30 st 00:00: Hospita 00 l SINEMET 2016-0 Yes [facility] 25-100 mg 3-30 [facility] per tablet 00:00: Hospita 00 l ZOLOFT 100 2016- Yes [facility] mg tablet 3-[facility] st 00:00: Hospita 00 l finasteride 2016- Yes 5mg QD Take 5 mg M [facility]i (PROSCAR) 5 3-[address] mg tablet 00:00: once Hospita 00 daily. l finasteride Yes 5mg QD Take 5 mg M [facility]i (PROSCAR) 5 3-[address] mg tablet 00:00: once Hospita 00 daily. l finasteride Yes 5mg QD Take 5 mg M ethodi (PROSCAR) 5 3-[address] mg tablet 00:00: once Hospita 00 daily. l RABEprazole Yes TAKE 1 [facility] (ACIPHEX) 2-[address] 20 mg EC 00:00: ORAL ROUTE Hos quyn[facility] tablet 00 2 TIMES l EVERY DAY RABEprazole Yes TAKE 1 [facility] krist[facility] (ACIPHEX) 2-[address] 20 mg EC 00:00: ORAL ROUTE Hos quyn[facility] tablet 00 2 TIMES l EVERY DAY RABEprazole Yes TAKE 1 Meth kristi (ACIPHEX) 2-[address] 20 mg EC 00:00: ORAL ROUTE Hos quyn[facility] tablet 00 2 TIMES l EVERY DAY tamsulosin Yes [facility] (FLOMAX) 2-03 st 0.4 mg 00:00: Hospita capsule,ext 00 l ended release 24hr tamsulosin Yes [facility] (FLOMAX) 2-03 st 0.4 mg 00:00: Hospita capsule,ext 00 l ended release 24hr tamsulosin Yes [facility] (FLOMAX) 2-03 st 0.4 mg 00:00: Hospita capsule,ext 00 l ended release 24hr Midodrine Midodrine No 1{table TID Midodrine HCl 10 MG HCl 10 MG t} HCl 10 MG Carbidopa-L Carbidopa-L No 1{table TID Carbidopa- evodopa evodopa t} Levodopa 25-250 MG 25-250 MG 25-250 MG Aspirin 81 Aspirin 81 No 1{table QD Aspirin 81 81 MG 81 MG t} 81 MG Lipitor 20 Lipitor 20 No 1{table QD Lipitor 20 MG MG t} MG Memantine Memantine No 1{table BID Memantine HCl 10 MG HCl 10 MG t} HCl 10 MG RABEprazole RABEprazole No 1{table QD RABEprazol Sodium 20 Sodium 20 t} e Sodium MG MG 20 MG Metoprolol Metoprolol No 1{capsu QD Metoprolol Succinate Succinate le} Succinate 50 MG 50 MG 50 MG Sertraline Sertraline No 1{table QD Sertraline HCl 100 MG HCl 100 MG t} HCl 100 MG Flomax 0.4 Flomax 0.4 No 1{capsu QD Flomax 0.4 MG MG 10-22 le} MG 00:00 :00 Vital Signs Vital Name Observation Time Observation Value Comments Source Systolic blood 2022-02-14 20:32:00 89 mm[Hg] [facility] Medicine Diastolic blood 2022-02-14 20:32:00 54 mm[Hg] [facility] Medicine Heart rate 2022-02-14 20:32:00 81 /min [facility] Body weight 2022-02-14 20:32:00 79.878 kg [facility] BMI 2022-02-14 20:32:00 25.27 kg/m2 [facility] height 2022-01-27 15:15:00 70 [in_i] [facility] weight 2022-01-27 15:15:00 165 [lb_av] [facility] temperature 2022-01-27 15:15:00 98.1 [degF] [facility] bmi 2022-01-27 15:15:00 23.67 kg/m2 [facility] oximetry 2022-01-27 15:15:00 97 % [facility] respiratory rate 2022-01-27 15:15:00 18 /min Comm on [facility] blood pressure 2022-01-27 15:15:00 89 mm[Hg] [facility] blood pressure 2022-01-27 15:15:00 54 mm[Hg] [facility] - diastolic [facility] Systolic blood 2021-06-28 14:20:00 138 mm[Hg] [facility] Medicine Diastolic blood 2021-06-28 14:20:00 78 mm[Hg] [facility] Medicine Heart rate 2021-06-28 14:20:00 62 /min [facility] Body weight 2021-06-28 14:20:00 79.379 kg [facility] BMI 2021-06-28 14:20:00 25.11 kg/m2 [facility] Systolic blood 2020-12-28 18:47:00 135 mm[Hg] [facility] Medicine Diastolic blood 2020-12-28 18:47:00 74 mm[Hg] [facility] Medicine Heart rate 2020-12-28 18:47:00 58 /min [facility] Body weight 2020-12-28 18:47:00 83.144 kg [facility] BMI 2020-12-28 18:47:00 26.30 kg/m2 [facility] Systolic blood 2020-06-29 15:20:00 103 mm[Hg] [facility] Medicine Diastolic blood 2020-06-29 15:20:00 61 mm[Hg] [facility] Medicine Heart rate 2020-06-29 15:20:00 60 /min [facility] Respiratory rate 2020-06-29 15:20:00 12 /min [facility] Body height 2020-06-29 15:20:00 177.8 cm [facility] Body weight 2020-06-29 15:20:00 90.719 kg [facility] BMI 2020-06-29 15:20:00 28.70 kg/m2 [facility] Systolic blood 2019-07-10 07:31:00 114 mm[Hg] [facility] Diastolic blood 2019-07-10 07:31:00 68 mm[Hg] [facility]ive [facility] Heart rate 2019-07-10 07:31:00 68 /min [facility] Body temperature 2019-07-10 07:31:00 36.78 Marjorie Univ [facility] Respiratory rate 2019-07-10 07:31:00 16 /min [facility] Oxygen saturation in 2019-07-10 07:31:00 93 /min [facility] Arterial blood by [facility] Pulse oximetry Branch Body weight 2019-07-10 01:55:00 90.719 kg [facility] Systolic (mm Hg) 2020-10-15 18:38:00 Zain rial [place] Diastolic (mm Hg) 2020-10-15 18:38:00 Mem orial [place] Heart Rate 2020-10-15 18:38:00 [facility] [place] Respitory Rate 2020-10-15 18:38:00 Janak al Panfilo Procedures Procedure Date / Time Performed Performing Clinician Sour e AMB REF TO PT 2022-02-14 15:18:49 [facility] EXTERNAL Medicine AMB REF TO OCC 2022-02-14 15:18:49 [facility] THERAPY EXTERNAL Medicine AMB REF TO HOME 2022-02-14 15:18:49 [facility] HEALTH EXTERNAL Medicine EXTERNAL PROVIDER 2019-07-24 05:01:00 Doctor Unassigned, No Univ [facility] RECORDS Name Medical Branch Cholecyst[facility]<sup>2 [facility] </sup> Appendectomy<sup>1</s [facility] up> Plan of Care Planned Activity Planned Date Details Comments Source Future Scheduled 2022-05-01 COVID-19 VACCINE (#1) [facility] Test 10:29:53 [code = COVID-19 VACCINE (#1)] Future Scheduled 2022-05-01 COLONOSCOPY SCREENING [facility] Test 10:29:53 [code = COLONOSCOPY SCREENING] Future Scheduled 2022-05-01 SHINGLES VACCINES (1 Met [facility] Test 10:29:53 of 2) [code = SHINGLES VACCINES (1 of 2)] Future Scheduled 2022-05-01 65+ [facility]CCAL [facility] 10:29:53 VACCINE (1 - PCV) [code = 65+ PNEUMOCOCCAL VACCINE (1 - PCV)] Future Scheduled 2022-05-01 INFLUENZA VACCINE [facility] Test 10:29:53 [code = INFLUENZA VACCINE] Future Scheduled 2022-02-14 Screening for [facility] Col [facility]ge of Test 14:32:46 malignant neoplasm of Medici ne colon (procedure) [code = [id number]] Future Scheduled 2022-02-14 TETANUS SHOT (ADULT) [facility] of Test 14:32:46 [code = TETANUS SHOT Medicin e (ADULT)] Future Scheduled 2022-02-14 BMI FOLLOW UP PLAN [facility] of Test 14:32:46 [code = BMI FOLLOW UP Medici ne PLAN] Future Scheduled 2022-02-14 Hepatitis C screening [facility] of Test 14:32:46 (procedure) [code = Medicine [id number]] Future Scheduled 2022-02-14 ZOSTER VACCINE (1 of [facility] of Test 14:32:46 2) [code = ZOSTER Medicine VACCINE (1 of 2)] Future Scheduled 2022-02-14 FALL SCREEN [code = [facility] of Test 14:32:46 FALL SCREEN] Medicine Future Scheduled 2022-02-14 Pneumococcal 65+ (1 - Ba [facility] of Test 14:32:46 PCV) [code = Medicine Pneumococcal 65+ (1 - PCV)] Future Scheduled 2022-02-14 MEDICARE AWV (Initial) B [facility] of Test 14:32:46 [code = MEDICARE AWV Medicin e (Initial)] Future Scheduled 2022-02-14 COVID-19 Vaccine (3 - [facility] of Test 14:32:46 Booster for Moderna Medicine series) [code = COVID-19 Vaccine (3 - Booster for Moderna series)] Future Scheduled 2022-02-14 FLU VACCINE > 6 MONTHS B [facility] of Test 14:32:46 [code = FLU VACCINE > Medici ne 6 MONTHS] Future Scheduled 2021-12-03 HEPATITIS B VACCINES Met [facility] Test 09:41:45 (1 of 3 - 3-dose series) [code = HEPATITIS B VACCINES (1 of 3 - 3-dose series)] Future Scheduled 2021-12-03 COVID-19 VACCINE (#1) [facility] Test 09:41:45 [code = COVID-19 VACCINE (#1)] Future Scheduled 2021-12-03 COLONOSCOPY SCREENING [facility] Test 09:41:45 [code = COLONOSCOPY SCREENING] Future Scheduled 2021-12-03 SHINGLES VACCINES (1 Met [facility] Test 09:41:45 of 2) [code = SHINGLES VACCINES (1 of 2)] Future Scheduled 2021-12-03 65+ PNEUMOCOCCAL Methodi [facility] Test 09:41:45 VACCINE (1 - PCV) [code = 65+ PNEUMOCOCCAL VACCINE (1 - PCV)] Future Scheduled 2021-12-03 INFLUENZA VACCINE Method [facility] Test 09:41:45 [code = INFLUENZA VACCINE] Future Scheduled 2021-12-03 HEPATITIS B VACCINES Met [facility] Test 09:41:45 (1 of 3 - 3-dose series) [code = HEPATITIS B VACCINES (1 of 3 - 3-dose series)] Future Scheduled 2021-12-03 COVID-19 VACCINE (#1) [facility] Test 09:41:45 [code = COVID-19 VACCINE (#1)] Future Scheduled 2021-12-03 COLONOSCOPY SCREENING [facility] Test 09:41:45 [code = COLONOSCOPY SCREENING] Future Scheduled 2021-12-03 SHINGLES VACCINES (1 Met [facility] Test 09:41:45 of 2) [code = SHINGLES VACCINES (1 of 2)] Future Scheduled 2021-12-03 65+ PNEUMOCOCCAL Methodi [facility] Test 09:41:45 VACCINE (1 - PCV) [code = 65+ PNEUMOCOCCAL VACCINE (1 - PCV)] Future Scheduled 2021-12-03 INFLUENZA VACCINE Method [facility] Test 09:41:45 [code = INFLUENZA VACCINE] Future Scheduled 2021-06-28 Screening for [facility] leg of Test 09:20:49 malignant neoplasm of Medici ne colon (procedure) [code = [id number]] Future Scheduled 2021-06-28 TETANUS SHOT (ADULT) [facility] of Test 09:20:49 [code = TETANUS SHOT Medicin e (ADULT)] Future Scheduled 2021-06-28 BMI FOLLOW UP PLAN [facility] of Test 09:20:49 [code = BMI FOLLOW UP Medici ne PLAN] Future Scheduled 2021-06-28 Hepatitis C screening [facility] Test 09:20:49 (procedure) [code = Medicine [id number]] Future Scheduled 2021-06-28 ZOSTER VACCINE (1 of [facility] of Test 09:20:49 2) [code = ZOSTER Medicine VACCINE (1 of 2)] Future Scheduled 2021-06-28 Pneumococcal 65+ (1 of B [facility] of Test 09:20:49 1 - PPSV23) [code = Medicine Pneumococcal 65+ (1 of 1 - PPSV23)] Future Scheduled 2021-06-28 MEDICARE AWV (Initial) B [facility] of Test 09:20:49 [code = MEDICARE AWV Medicin e (Initial)] Future Scheduled 2021-06-28 FLU VACCINE > 6 MONTHS B [facility] of Test 09:20:49 [code = FLU VACCINE > Medici ne 6 MONTHS] Future Scheduled 2021-06-28 COVID-19 Vaccine (3 - [facility] of Test 09:20:49 Booster for Moderna Medicine series) [code = COVID-19 Vaccine (3 - Booster for Moderna series)] Future Scheduled 2021-06-28 FALL SCREEN [code = [facility] of Test 09:20:49 FALL SCREEN] Medicine Future Scheduled 2020-12-28 FALL SCREEN [code = [facility] of Test 13:44:09 FALL SCREEN] Medicine Future Scheduled 2020-12-28 Screening for [facility] Col lege of Test 13:44:09 malignant neoplasm of Medici ne colon (procedure) [code = [id number]] Future Scheduled 2020-12-28 TETANUS SHOT (ADULT) [facility] of Test 13:44:09 [code = TETANUS SHOT Medicin e (ADULT)] Future Scheduled 2020-12-28 BMI FOLLOW UP PLAN [facility] of Test 13:44:09 [code = BMI FOLLOW UP Medici ne PLAN] Future Scheduled 2020-12-28 Hepatitis C screening [facility] of Test 13:44:09 (procedure) [code = Medicine [id number]] Future Scheduled 2020-12-28 ZOSTER VACCINE (1 of [facility] of Test 13:44:09 2) [code = ZOSTER Medicine VACCINE (1 of 2)] Future Scheduled 2020-12-28 PNEUMOVAX >=65 [facility] Co [facility]lege of Test 13:44:09 (PPSV23) [code = Medicine PNEUMOVAX >=65 (PPSV23)] Future Scheduled 2020-12-28 FLU VACCINE > 6 MONTHS B [facility] of Test 13:44:09 [code = FLU VACCINE > Medici ne 6 MONTHS] Future Scheduled 2020-12-28 FALL SCREEN [code = [facility] of Test 13:44:09 FALL SCREEN] Medicine Future Scheduled 2020-12-28 Screening for [facility] Col [facility]ge of Test 13:44:09 malignant neoplasm of Medici ne colon (procedure) [code = 846593361] Future Scheduled 2020-12-28 TETANUS SHOT (ADULT) [facility] of Test 13:44:09 [code = TETANUS SHOT Medicin e (ADULT)] Future Scheduled 2020-12-28 BMI FOLLOW UP PLAN [facility] of Test 13:44:09 [code = BMI FOLLOW UP Medici ne PLAN] Future Scheduled 2020-12-28 Hepatitis C screening [facility] of Test 13:44:09 (procedure) [code = Medicine [id number]] Future Scheduled 2020-12-28 ZOSTER VACCINE (1 of [facility] of Test 13:44:09 2) [code = ZOSTER Medicine VACCINE (1 of 2)] Future Scheduled 2020-12-28 PNEUMOVAX >=65 [facility]lege of Test 13:44:09 (PPSV23) [code = Medicine PNEUMOVAX >=65 (PPSV23)] Future Scheduled 2020-12-28 FLU VACCINE > 6 MONTHS B [facility] of Test 13:44:09 [code = FLU VACCINE > Medici ne 6 MONTHS] Future Scheduled Screening for [facility] Col lege of Test malignant neoplasm of Medici ne colon (procedure) [code = 379413212] Future Scheduled TETANUS SHOT (ADULT) [facility] of Test [code = TETANUS SHOT Medicin e (ADULT)] Future Scheduled BMI FOLLOW UP PLAN [facility] of Test [code = BMI FOLLOW UP Medici ne PLAN] Future Scheduled Hepatitis C screening [facility] of Test (procedure) [code = Medicine 107300158] Future Scheduled ZOSTER VACCINE (1 of [facility] of Test 2) [code = ZOSTER Medicine VACCINE (1 of 2)] Future Scheduled FALL SCREEN [code = [facility] of Test FALL SCREEN] Medicine Future Scheduled PNEUMOVAX >=65 [facility] Co llege of Test (PPSV23) [code = Medicine PNEUMOVAX >=65 (PPSV23)] Future Scheduled FLU VACCINE > 6 MONTHS B [facility] of Test [code = FLU VACCINE > Medici ne 6 MONTHS] Encounters Start End Encounter Admission Attending Care Care Encounter Source Date/Time Date/Time Type Type Clinicians Facility Department ID 2022-01-27 [id number] Common 14:23:03 Felipe 245[address] [facility] 2022-02-14 2022-02-14 Office PHONG MARQUEZ [id number] [facility] 13:26:11 15:09:44 Visit STEF AMBULATOR 350.1.13.21 College Y 0.2.7.2.686 of [id number] Medi janis 800 e 2022-01-27 2022-01-27 [id number] Co mmon 00:00:00 00:00:00 VISIT EST Spir it PT LEVEL 3 - [facility] 2021-06-28 2021-06-28 Office PHONG MARQUEZ [id number] [facility] 09:13:10 10:32:00 Visit STEF AMBULATOR 350.1.13.21 College Y 0.2.7.2.686 of [id number] Medi janis 800 e 2020-12-28 2020-12-28 Office PHONG Marquez [id number] [facility] 13:07:10 13:22:10 Visit Stef AMBULATOR 350.1.13.21 College Y 0.2.7.2.686 of [id number] Medi janis 800 e 2020-10-15 2020-10-16 Outpatient nullFlavo MNA [id number] [facility] 18:45:00 04:59:59 r Neurology 00 l Carol Ann Whittaker 2020-10-15 2020-10-16 Outpatient nullFlavo MNA [id number] [facility] 18:45:00 04:59:59 r Neurology 00 l Carol Ann Whittaker 2020-10-15 2020-10-15 Outpatient ROSALVA Collins [id number] 13:45:00 23:59:59 Christiano 00 Yuri 2020-10-15 2020-10-15 Outpatient BOUCHRA SHOOK [id number] [facility] 13:45:00 13:45:00 00 polina Whittaker 2020-06-29 2020-06-29 Office PHONG Marquez [id number] [facility] 09:41:34 09:56:34 Visit Stef AMBULATOR 350.1.13.21 College Y 0.2.7.2.686 of [id number] [facility] 800 e 2019-07-24 2019-07-24 Orders Doctor MORRIS [id number] Univers 00:00:00 00:00:00 Only Unassigned, KHURRAM 350.1.13.10 ity of [place] 4.2.7.2.686 Tad as [id number] [facility] [address] Branch 2019-07-09 2019-07-10 Emergency Roshan Nicoleisten D TRAUMA [id number] Univers 20:42:57 02:57:00 Colton Lomas DRY RIDGE 350.1.13.10 [place] [id number] [facility] 014 Branch 2019-07-09 2019-07-09 Emergency X [facility] ERT [id number] Univers 20:42:57 20:42:57 ity of [facility] Results Test Description Test Time Test Comments [...] SOURCE(BEAKER) (test code = 2795) BASIC METABOLIC [id number] 05:53:00 Test Item Value Reference Range Interpretation [...] PATIEN TS. CBC W/PLT COUNT & AUTO [id number] 05:39:00 Test Item Value Reference Range Interpretation [...] PERCENT (BEAKER) (test code = 2801) POCT-GLUCOSE [id number] 12:48:00 Test Item Value Reference Range Interpretation Comments POC-GLUCOSE METER 111 mg/dL 70-110 H TESTED AT [facility] 6720 (BEBANNER) (test code = LEATHA [place]ILE [place] 1538) [address] POCT-GLUCOSE [id number] 06:51:00 Test Item Value Reference Range Interpretation Comments POC-GLUCOSE METER 113 mg/dL 70-110 H TESTED AT [facility] 6720 ([place]ANNER) (test code = [place] 1538) [address] BASIC METABOLIC [id number] 04:35:00 Test Item Value Reference Range Interpretation [...] PATIEN TS. CBC W/PLT COUNT & AUTO [id number] 04:10:00 Test Item Value Reference Range Interpretation [...] PERCENT (BEAKER) (test code = 2801) POCT-GLUCOSE [id number] 03:43:00 Test Item Value Reference Range Interpretation Comments POC-GLUCOSE METER 177 mg/dL 70-110 H TESTED AT [place] [address] ([facility]) (test code = LEATHA Armstrong [facility] 1538) [address] POCT-GLUCOSE [id number] 22:34:00 Test Item Value Reference Range Interpretation Comments POC-GLUCOSE METER 128 mg/dL 70-110 H TESTED AT [place] [address] ([facility]) (test code = LEATHA Armstrong [facility] 1538) [address] POCT-GLUCOSE [id number] 22:19:00 Test Item Value Reference Range Interpretation Comments POC-GLUCOSE METER 126 mg/dL 70-110 H TESTED AT [place] [address] ([facility]) (test code = LEATHA Armstrong [facility] 1538) [address] POCT-GLUCOSE [id number] 12:26:00 Test Item Value Reference Range Interpretation Comments POC-GLUCOSE METER 136 mg/dL 70-110 H TESTED AT [place] [address] (YOSSI) (test code = LEATHA Armstrong [facility] 1538) [address]876 POCT-GLUCOSE [id number] 08:22:00 Test Item Value Reference Range Interpretation Comments POC-GLUCOSE METER 108 mg/dL 70-110 TESTED AT [facility] 6720 (YOSSI) (test code = LEATHA HAILE [place] 1538) [address] CT BRAIN WITHOUT IV CONTRAST - [id number] 08:16:00Reason for exam:->SDHFINAL REPORT CT Head without [...] MDReport Verified Date/Time: 07/30/2017 08:16:45 Reading Location: [address] Neuro Reading Room MAGNESIUM 2017-07-30 05:36:00 Test Item Value Reference Range Interpretation Comments MAGNESIUM (BEAKER) 2.1 mg/dL 1.6-2.6 Specimen slightly (test code = 627) hemolyzed Once on admission and Daily AM afterwardsOnce on admission and Daily AM afterwardsOnce on admission and Daily AM [id number] 05:36:00 Test Item Value Reference Range Interpretation [...] Daily AM afterwardsCBC W/PLT COUNT & AUTO [id number] 04:16:00 Test Item Value Reference Range Interpretation [...] PERCENT (BEAKER) (test code = 2801) POCT-GLUCOSE [id number] 22:02:00 Test Item Value Reference Range Interpretation Comments POC-GLUCOSE METER 118 mg/dL 70-110 H TESTED AT [facility] 6720 (BEAKER) (test code = LEATHA [place] 1538) [address] URINALYSIS W/ [id number] 18:07:00 Test Item Value Reference Range Interpretation [...] 516) SOURCE(BEAKER) (test code = 2795) TROPONIN [id number] 17:06:00 Test Item Value Reference Range Interpretation [...] acute neurological disease, and persistent tachyarrhythmia.HEPATIC FUNCTION [id number] 15:29:00 Test Item Value Reference Range Interpretation [...] = < U/L 6-55 L 347) PROTHROMBIN [id number] 15:11:00 Test Item Value Reference Range Interpretation Comments PROTIME (BEAKER) (test code = 13.9 seconds 11.7-14.7 759) INR (BEAKER) (test code = 370) 1.1 <=5.9 RECOMMENDED COUMADIN/WARFARIN INR THERAPY RANGESSTANDARD DOSE: 2.0 - 3.0 Includes: PROPHYLAXIS for venous thrombosis, systemic embolization; TREATMENT for venous thrombosis and/or pulmonary embolus.HIGH RISK: Target INR is 2.5-3.5 for patients with mechanical heart valves.[id number] 15:11:00 Test Item Value Reference Range Interpretation Comments PARTIAL THROMBOPLASTIN TIME 29.9 seconds 22.5-36.0 (BEAKER) (test code = 760)
[2022-05-01 11:00] LABS: Absolute Lymphocytes (CBC) 1.5 K/uL (0.7-4.9); Hematocrit 45.1 % (39.6-49.0); Lymphocytes % 17.2 % (15.3-44.8); MCV 90.2 fL (80-100); MPV 6.9 fL (7.6-11.3)
[2022-05-01 11:03] LABS: Protime INR 1.01
[2022-05-01 11:10] LABS: SARS-CoV-2 Antigen Rapid Res Negative (Negative)
--- NOTE | 2022-05-01 11:14 | RAD REPORT ---
EXAM DESCRIPTION: RAD - Chest Single View - 05/01/2022 11:02 am CLINICAL HISTORY: CHEST PAIN COMPARISON: Chest Pa And Lat (2 Views) dated 02/23/2022; Chest Pa And Lat (2 Views) dated 12/30/2021; Chest Single View dated 12/18/2021; Chest Single View dated 12/17/2021; Head C Spine Mpr Wo Con dated 01/04/2022; Chest For Pe Angio dated 12/16/2021 FINDINGS: Lines: None. Lungs: Likely atelectasis as a result of the left pleural effusion. Pleural: Small left pleural effusion. Left-sided tunneled pleural catheter. Cardiac: The heart size is within normal limits. Mediastinum: Within normal limits. Bones: No acute fractures. Other: None IMPRESSION: Small left pleural effusion and likely associated atelectasis. Tunneled pleural catheter in place.
[2022-05-01 11:26] LABS: AST/SGOT 16 U/L (15-37); Alkaline Phosphatase 104 U/L (45-117); BUN Blood Urea Nitrogen 10 mg/dL (7-18); Bicarbonate 33 mmol/L (21-32); Bilirubin Direct 0.1 mg/dL (0-0.2); Bilirubin Total 0.4 mg/dL (0.2-1.0); Glomerular Filtration Rate 86 ml/min (=/>90); Glucose Level 161 mg/dL (74-106); Magnesium 1.8 mg/dL (1.6-2.4); NT PRO-BNP 321 pg/mL (<125); Potassium 3.6 mmol/L (3.5-5.1); Protein, Total 6.1 g/dL (6.4-8.2); Sodium Level 146 mmol/L (136-145); Troponin High Sensitivity 22.8 pg/mL (<58.9)
[2022-05-01 11:32] LABS: ALT/SGPT < 10 U/L (16-61)
[2022-05-01 12:21] LABS: Urine Blood Negative (Negative); Urine Glucose Negative (Negative); Urine Protein Negative (Negative); Urine Specific Gravity 1.015 (1.005-1.030)
[2022-05-01 12:38] LABS: Urine Bacteria <20 /HPF (<20); Urine RBC <5 /HPF (None Seen)
--- NOTE | 2022-05-01 12:44 | RAD REPORT ---
EXAM DESCRIPTION: CT - Head Brain Wo Cont - 05/01/2022 12:29 pm CLINICAL HISTORY: dazed COMPARISON: <Comparisons> TECHNIQUE: All CT scans are performed using dose optimization technique as appropriate and may inclu de automated exposure control or mA/KV adjustment according to patient size. FINDINGS: No intracranial hemorrhage, hydrocephalus or extra-axial fluid collection.No areas of brai n edema or evidence of midline shift. The paranasal sinuses and mastoids are clear. The calvarium is intact. IMPRESSION: No acute intracranial abnormality.
--- NOTE | 2022-05-01 14:06 | ER ---
Nurse's Notes [facility] Name: Osman Foy Jr Age: 72 yrs Sex: Male : 1950 Arrival Date: 05/01/2022 Time: 10:27 Bed 18 Private MD: Diagnosis: Other malaise and fatigue Presentation: 05/01 10:20 Chief complaint: EMS states: patient had AMS this morning, was lethargic on their ko1 arrival. Coronavirus screen: Vaccine status: Patient reports receiving the 2nd dose of the covid vaccine. At this time, the client does not indicate any symptoms associated with coronavirus-19. Ebola Screen: No symptoms or risks identified at this time. Initial Sepsis Screen: Does the patient meet any 2 criteria? No. Patient's initial sepsis screen is negative. Does the patient have a suspected source of infection? No. Patient's initial sepsis screen is negative. Risk Assessment: Do you want to hurt yourself or someone else? Patient reports no desire to harm self or others. Onset of symptoms was May 01, 2022. Care prior to arrival: IV initiated. 20 GA, in the right hand, Glucose check: 119. 10:20 Method Of Arrival: EMS: [facility] ko1 10:20 Acuity: SHELIA 3 ko1 Triage Assessment: 11:28 General: Appears in no apparent distress. comfortable, Behavior is calm, cooperative, ko1 appropriate for age. Pain: Denies pain. Historical: - PMHx: 11:28 Brain bleed; Hypertensive disorder; Parkinsons; ko1 - PSHx: 11:28 Appendectomy; Cholecystectomy; ko1 - Immunization history:: Adult Immunizations unknown. - Social history:: Smoking status: Patient denies any tobacco usage or history of. Screenin:15 [facility] ED Fall Risk Assessment (Adult) History of falling in the last 3 months, ko1 including since admission No falls in past 3 months (0 pts) Confusion or Disorientation No (0 pts) Intoxicated or Sedated No (0 pts) Impaired Gait No (0 pts) Mobility Assist Device Used No (0 pt) Altered Elimination No (0 pt) Score/Fall Risk Level 0 - 2 = Low Risk Oriented to surroundings, Maintained a safe environment, Educated pt \T\ family on fall prevention, incl call for assistance when getting out of bed, Assessed \T\ reinforced patient's understanding of fall precautions, Provided non-skid footwear, Hourly rounding (assess needs \T\ fall precautionary measures) done, Used ambulatory aids as needed (educated on \T\ assisted with), Used gait belt as appropriate. Abuse screen: Denies threats or abuse. Denies injuries from another. Nutritional screening: No deficits noted. Tuberculosis screening: No symptoms or risk factors identified. Assessment: 11:25 General: Appears in no apparent distress. comfortable, Behavior is calm, cooperative, ko1 appropriate for age. Pain: Denies pain. Neuro: No deficits noted. Cardiovascular: No deficits noted. Respiratory: patient has drain to left side of chest. GI: No deficits noted. : No deficits noted. EENT: No deficits noted. Derm: No deficits noted. Musculoskeletal: No deficits noted. 12:03 Reassessment: Report received from JOSE Corcoran. mb9 12:21 General: Appears comfortable, Behavior is calm, cooperative, appropriate for age. Pain: mb9 Denies pain. Neuro: Level of Consciousness is awake, alert, obeys commands, Oriented to person, place, time, situation, Appropriate for age. Cardiovascular: Capillary refill < 3 seconds is brisk Patient's skin is warm and dry. Respiratory: Airway is patent Respiratory effort is even, unlabored, Respiratory pattern is regular, symmetrical. GI: Abdomen is flat, non-distended. : Urine is cloudy. EENT: No signs and/or symptoms were reported regarding the EENT system. Derm: Skin is pink, warm \T\ dry. Musculoskeletal: Range of motion: intact in all extremities. 12:22 Reassessment: pt taken to CT via stretcher. mb9 13:13 Reassessment: No changes from previously documented assessment. Patient and/or family mb9 updated on plan of care and expected duration. Pain level reassessed. Patient is alert, oriented x 3, equal unlabored respirations, skin warm/dry/pink. 14:09 Reassessment: Pt denies pain. Airway is patent, respirations are even and unlabored. mb9 Rhythm is regular. Notified URBAN RENEWAL MANAGER, López, of pts high blood pressure. New orders at this time. 14:50 Reassessment: No changes from previously documented assessment. Patient and/or family mb9 updated on plan of care and expected duration. Pain level reassessed. Patient is alert, oriented x 3, equal unlabored respirations, skin warm/dry/pink. Patient denies pain at this time. Patient states feeling better. Patient states symptoms have improved. Vital Signs: 10:20 BP 191 / 99; Pulse 75; Resp 22; Temp 98.1(O); Pulse Ox 99% ; Pain 0/10; ko1 10:30 BP 178 / 84; Pulse 73; Resp 18; Pulse Ox 96% ; ko1 10:45 BP 179 / 81; Pulse 77; Resp 18; Pulse Ox 96% ; ko1 11:00 BP 162 / 90; Pulse 77; Resp 18; Pulse Ox 99% ; ko1 11:15 BP 165 / 81; Pulse 76; Resp 18; Pulse Ox 99% ; ko1 12:21 BP 175 / 81; Pulse 71; Resp 16; Pulse Ox 97% ; Pain 0/10; mb9 13:12 BP 159 / 75; Pulse 69; Resp 20; Pulse Ox 99% on R/A; Pain 0/10; mb9 14:07 BP 211 / 86; Pulse 68; Resp 22; Pulse Ox 100% ; mb9 14:37 BP 186 / 87; Pulse 70; Resp 14; Pulse Ox 100% on R/A; mb9 14:50 BP 154 / 73; Pulse 71; Resp 20; Pulse Ox 99% ; mb9 ED Course: 10:27 Patient arrived in ED. eb 10:28 Jennifer Dawn FNP-C is [facility]. snw 10:28 Erich Sierra MD is Attending Physician. snw 10:31 Jewell Rudolph, RN is Primary Nurse. ko1 10:49 Basic Metabolic Panel Sent. ko1 10:49 CBC with Diff Sent. ko1 10:49 LFT's Sent. ko1 10:49 Magnesium Sent. ko1 10:49 NT PRO-BNP Sent. ko1 10:49 PT-INR Sent. ko1 10:49 Troponin HS Sent. ko1 10:51 Procalcitonin Sent. ko1 11:04 XRAY Chest (1 view) In Process Unspecified. EDMS 11:15 Inserted saline lock: 22 gauge in left antecubital area, using aseptic technique. Blood ko1 collected. 11:15 Patient has correct armband on for positive identification. Fall risk band placed. ko1 Placed in gown. Bed in low position. Call light in reach. Side rails up X2. Adult w/ patient. Pulse ox on. NIBP on. 11:28 Triage completed. ko1 11:28 Arm band placed on right wrist. ko1 11:48 Lactate w/ 2H reflex if indic. Sent. ko1 11:49 Blood Culture Adult (2) Sent. ko1 12:20 Urine Culture Sent. mb9 12:20 Urine Microscopic Only Sent. mb9 12:30 CT Head Brain wo Cont In Process Unspecified. EDMS 13:13 No provider procedures requiring assistance completed. mb9 14:50 IV discontinued, intact, bleeding controlled, No redness/swelling at site. Pressure mb9 dressing applied. Administered Medications: 14:15 Drug: cloNIDine 0.1 mg Route: PO; mb9 Medication: 13:13 VIS not applicable for this client. mb9 Outcome: 14:05 Discharge ordered by . snw 14:51 Discharged to home via wheelchair. mb9 14:51 Condition: stable 14:51 Discharge instructions given to patient, family, Instructed on discharge instructions, follow up and referral plans. Demonstrated understanding of instructions, follow-up care. 14:57 Patient left the ED. mb9 Signatures: Dispatcher [employer] EDMS Jennifer Dawn, MILL WASHER-C MILL WASHER-Csnw Marbella Arias Kathy, RN RN ko1 Shanita Garrett, RN RN mb9
--- NOTE | 2022-05-01 14:06 | EDPHYS ---
Physician Documentation [facility] Name: Osman Foy Jr Age: 72 yrs Sex: Male : 1950 Arrival Date: 05/01/2022 Time: 10:27 Bed 18 Private MD: ED Physician Erich Sierra HPI: 05/01 11:25 This 72 yrs old Male presents to ER via Unassigned with complaints of malaise. snw Historical: - PMHx: 11:28 Brain bleed; Hypertensive disorder; Parkinsons; ko1 - PSHx: 11:28 Appendectomy; Cholecystectomy; ko1 - Immunization history:: Adult Immunizations unknown. - Social history:: Smoking status: Patient denies any tobacco usage or history of. ROS: 11:22 Constitutional: Positive for malaise, pt states he felt like he was dying this morning, snw could think and hear but was unable to respond. Exam: 11:10 Head/Face: Normocephalic, atraumatic. Eyes: Pupils equal round and reactive to light, snw extra-ocular motions intact. Lids and lashes normal. Conjunctiva and sclera are non-icteric and not injected. Cornea within normal limits. Periorbital areas with no swelling, redness, or edema. ENT: Nares patent. No nasal discharge, no septal abnormalities noted. Tympanic membranes are normal and external auditory canals are clear. Oropharynx with no redness, swelling, or masses, exudates, or evidence of obstruction, uvula midline. Mucous membranes moist. Neck: Trachea midline, no thyromegaly or masses palpated, and no cervical lymphadenopathy. Supple, full range of motion without nuchal rigidity, or vertebral point tenderness. No Meningismus. Chest/axilla: Normal chest wall appearance and motion. Nontender with no deformity. No lesions are appreciated. dressing over tunneled pleural catheter. Drained of 500ml yesterday per report Cardiovascular: Regular rate and rhythm with a normal S1 and S2. No gallops, murmurs, or rubs. Normal PMI, no JVD. No pulse deficits. Respiratory: Lungs have equal breath sounds bilaterally, clear to auscultation and percussion. No rales, rhonchi or wheezes noted. No increased work of breathing, no retractions or nasal flaring. Abdomen/GI: Soft, non-tender, with normal bowel sounds. No distension or tympany. No guarding or rebound. No evidence of tenderness throughout. Back: No spinal tenderness. No costovertebral tenderness. Full range of motion. Skin: Warm, dry with normal turgor. Normal color with no rashes, no lesions, and no evidence of cellulitis. MS/ Extremity: Pulses equal, no cyanosis. Neurovascular intact. Full, normal range of motion. 11:10 Constitutional: The patient appears awake, listless. 11:10 Neuro: Orientation: to person, place, time, Mentation: is normal, Motor: Parkinsonian movement, seizure activity, is not displayed by the patient. Vital Signs: 10:20 BP 191 / 99; Pulse 75; Resp 22; Temp 98.1(O); Pulse Ox 99% ; Pain 0/10; ko1 10:30 BP 178 / 84; Pulse 73; Resp 18; Pulse Ox 96% ; ko1 10:45 BP 179 / 81; Pulse 77; Resp 18; Pulse Ox 96% ; ko1 11:00 BP 162 / 90; Pulse 77; Resp 18; Pulse Ox 99% ; ko1 11:15 BP 165 / 81; Pulse 76; Resp 18; Pulse Ox 99% ; ko1 12:21 BP 175 / 81; Pulse 71; Resp 16; Pulse Ox 97% ; Pain 0/10; mb9 13:12 BP 159 / 75; Pulse 69; Resp 20; Pulse Ox 99% on R/A; Pain 0/10; mb9 14:07 BP 211 / 86; Pulse 68; Resp 22; Pulse Ox 100% ; mb9 14:37 BP 186 / 87; Pulse 70; Resp 14; Pulse Ox 100% on R/A; mb9 14:50 BP 154 / 73; Pulse 71; Resp 20; Pulse Ox 99% ; mb9 MDM: 10:29 Patient medically screened. snw 11:25 Differential Diagnosis altered mental status, sepsis. Data reviewed: vital signs, snw nurses notes, EMS record. Historians other than the Patient: EMS: [facility]. Counseling: I had a detailed discussion with the patient and/or guardian regarding: lab results, radiology results. ED course: Pt has a hx of Parkinson's, UTI, Asbestosis. Has tunneled pleural cath that is drained of 500ml every other day to left chest wall, finished antibiotics on Monday or yesterday for UTI. Pt takes midodrine for blood pressure support. Sees Dr. Hobson, Dr. Oakley, and a Parkinson MD in [place]. Lives in [place] with his of 55 years. 14:02 I considered the following discharge prescriptions or medication management in the [facility] emergency department no noted areas of infection. Response to treatment: the patient's symptoms have mildly improved after treatment. Special discussion: Based on the history and exam findings, there is no indication for further emergent testing or inpatient evaluation. Internal medicine. ED course: Pt states he is feeling better. States he had a big day at a [employer] cook off yesterday. He was very fatigued and felt quite weak. . 05/01 10:29 Order name: Basic Metabolic Panel; Complete Time: 11:39 [facility] 05/01 10:29 Order name: CBC with Diff; Complete Time: 11:09 [facility] 05/01 10:29 Order name: LFT's; Complete Time: 11:39 [facility] 05/01 10:29 Order name: Magnesium; Complete Time: 11:39 [facility] 05/01 10:29 Order name: NT PRO-BNP; Complete Time: 11:39 [facility] 05/01 10:29 Order name: PT-INR; Complete Time: 11:04 [facility] 05/01 10:29 Order name: Troponin HS; Complete Time: 11:39 [facility] 05/01 10:42 Order name: Blood Culture Adult (2) [facility] 05/01 10:42 Order name: SARS RAPID; Complete Time: 11:16 [facility] 05/01 10:42 Order name: Urine Culture [facility] 05/01 10:42 Order name: Urine Microscopic Only; Complete Time: 12:40 [facility] 05/01 10:42 Order name: Lactate w/ 2H reflex if indic.; Complete Time: 12:13 [facility] 05/01 10:42 Order name: Procalcitonin; Complete Time: 11:39 [facility] 05/01 12:21 Order name: Urine Dipstick-Ancillary; Complete Time: 12:22 [facility] 05/01 10:29 Order name: XRAY Chest (1 view); Complete Time: 11:16 [facility] 05/01 10:29 Order name: EKG; Complete Time: 10:30 [facility] 05/01 10:29 Order name: Cardiac monitoring; Complete Time: 10:32 05/01 10:29 Order name: EKG - Nurse/Tech; Complete Time: 11:06 05/01 10:29 Order name: IV Saline Lock; Complete Time: 10:32 05/01 10:29 Order name: Labs collected and sent; Complete Time: 10:49 05/01 10:29 Order name: O2 Per Protocol; Complete Time: 10:32 05/01 10:29 Order name: O2 Sat Monitoring; Complete Time: 10:32 05/01 10:42 Order name: Urine Dipstick-Ancillary (obtain specimen); Complete Time: 12:20 05/01 12:15 Order name: CT Head Brain wo Cont; Complete Time: 12:46 05/01 14:02 Order name: PO challenge; Complete Time: 14:02 05/01 14:06 Order name: Diet Regular: RODRIGUE; Complete Time: 14:06 ss EC:10 Rate is 78 beats/min. Rhythm is regular. QT interval is prolonged. Clinical impression: snw NSR w/ Non-specific ST/T Changes. Administered Medications: 14:15 Drug: cloNIDine 0.1 mg Route: PO; mb9 Disposition: 14:06 Chart complete. snw Disposition Summary: 05/01/22 14:05 Discharge Ordered Location: Home snw Condition: Stable snw Diagnosis - Other malaise and fatigue snw Followup: snw - With: Emergency Department - When: As needed - Reason: Worsening of condition Followup: snw - With: Private Physician - When: 1 - 2 days - Reason: Recheck today's complaints, Continuance of care, Re-evaluation by your physician Discharge Instructions: - Discharge Summary Sheet snw - Fatigue snw Forms: - Medication Reconciliation Form snw - Thank You Letter snw - Antibiotic Education snw - Prescription Opioid Use snw Signatures: Dispatcher [employer] Jennifer Zaldivar FNP-C FRUIT CUTTER-Csnw Jewell Rudolph, RN RN ko1 Shanita Garrett RN RN mb9 Corrections: (The following items were deleted from the chart) 12:48 10:42 [place] ordered. snw mb9
[2022-05-01] MEDS ORDERED: cloNIDine HCL 0.1 MG TAB ONE (14:17)
[2022-05-01 15:10] VITALS: BP 154/73; O2SAT 99
--- NOTE | 2022-05-03 17:03 | EKG ---
Test Date: 2022-05-01 Test Time: 11:04:21 Training And Development Officer: LACIE MEASUREMENT RESULTS: Intervals: Rate: 78 [place]: 138 QRSD: 88 QT: 442 QTc: 503 [place]: P: 27 [place]: 138 QRS: 39 T: 33 INTERPRETIVE STATEMENTS: Normal sinus rhythm Junctional ST depression, probably normal Prolonged QT Abnormal ECG Compared to ECG 12/16/2021 12:41:35 ST (T wave) deviation now present Prolonged QT interval now present Electronically Signed On 05-03-22 16:57:58 SDV PILOT/NAVIGATOR/DDS OPERATOR by Milad Lopez
== END 2022-05-01 14:57 | disposition home or self-care (01) ==
LOC: ER 10:27
DX: R53.81 Other malaise (principal); R53.83 Other fatigue; I10 Essential (primary) hypertension; G20 Parkinson's disease; Z20.822 Contact with and (suspected) exposure to COVID-19
CPT/HCPCS: 36415; 70450; 71045; 80048; 80076; 81003; 81015; 83605; 83735; 83880; 84145; 84484; 85025; 85610; 87040; 87086; 87088; 87811; 93005; 99284

== ENCOUNTER 2022-05-16 11:50 | Inpatient (IN) | payer OTHER ==
--- OUTSIDE RECORDS SUMMARY | 2022-05-16 11:56 | XMS REPORT | Continuity of Care Document ---
:1950 Author Organization [facility] t Address [address] [place] [address] Care Team Providers Name Role Phone Felipe Hobson MD Primary Care Physician Felipe Hobson Attending Clinician Unavailable STEF MARQUEZ Attending Clinician Unavailable Stef Marquez MD Attending Clinician Christiano Collins Attending Clinician Doctor Unassigned, [place] Attending Clinician Unavailable Shayy Nicole MD Attending Clinician Colton Lomas MD Attending Clinician MAGDA LIZAMA Attending Clinician Unavailable Colton Lomas MD Admitting Clinician COLTON LOMAS Admitting Clinician Unavailable MAGDA LIZAMA Admitting Clinician Unavailable Payers Payer Name Policy Type Policy Number Effective Date Expiration Date S paty ERS MEDICARE [id number] ADVANTAGE PPO-UHC ZZZERS MEDICARE [id number] ADVANTAGE PPO MEDICARE PART B [id number] - [facility] [id number] 2011 2011 GRP [id number] OR 00:00:00 00:00:00 [id number] [place] [id number] [facility] Problems Condition Condition Condition Status Onset Resolution Last Treating Co mments Source Name Details Category Date Date Treatment Clinician Date RBD (REM RBD (REM Disease Active [facility] 3-29 Co llege disorder) disorder) [...] Center MCI (mild MCI (mild Disease Active Coleman benito cognitive cognitive 10-06 Manny ege impairment impairment 00:00: of ) with ) with 00 Medicin memory memory e loss loss MCI (mild MCI (mild Disease Active Coleman benito cognitive cognitive 10-06 M[facility] impairment impairment 00:00: of ) with ) with 00 Medicin memory memory e loss loss Dyskinesia Dyskinesia Disease Active Arielle root , , 3-02 College drug-induc drug-induc 00:00: of ed ed 00 Medicin e Syncope Syncope Disease Active 2013-04 [facility] 2-17 College 00:00: of 00 Medicin e Depression Depression Disease Active [facility] 9-20 College 00:00: of 00 Medicin e [id number] Prostate Problem Com mon 15622 nodule [facility] [id number] Hydrourete Problem Com mon r on left [facility] [id number] Elevated Problem Comm on PSA [facility] [id number] Incomplete Problem Co mmon emptying [facility] of bladder [facility] [id number] BPH loc w Problem Com mon urin Spirit obs/LUTS [facility] [id number] Urge Problem Common incontinen [facility] Atrial Atrial Problem Active 2020-10-18 Zain anai fibrillati fibrillati 01:01:14 l on on Panfilo (disorder) (disorder) Active Problem 10/18/2020 [facility] Cough Cough Problem Active 2020-10-18 Memor ia (finding) (finding) 01:01:14 l Active Panfilo Problem 10/18/2020 [facility] History of History Problem Active 2020-10-18 Memoria - of - 01:01:14 l hypertensi hypertensi He rmann on on (context-d (context-d ependent ependent category) category) Active Problem 10/18/2020 [facility] Orthostati Problem Active 2020-10-18 Renetta coffman Orthostati 01:01:14 l hypotensio c Taj n n hypotensio (disorder) n (disorder) Active Problem 10/18/2020 [facility] [id number] Detrusor Problem Comm on instabilit Spirit y - [facility] Allergies, Adverse Reactions, Alerts Allergy Allergy Status Severity Reaction(s) Onset Inactive Treating Comm ents Source Name Type Date Date Clinician NO KNOWN Drug Active Univers ALLERGIE Class ity of S [facility] Family History Family Member Diagnosis Comments Start Date Stop Date Source Natural father Heart attack [facility] Natural mother Cancer [facility] Social History Social Habit Start Date Stop Date Quantity Comments Source History of [facility] - Tobacco Use [facility] Exposure to 2021-06-17 2021-06-27 [facility] SARS-CoV-2 00:00:00 15:40:00 Medicine (event) Tobacco use and 2017-07-29 2017-07-29 Never used [facility] exposure 00:00:00 00:00:00 [facility] Alcohol intake 2016-07-29 2016-07-29 Current [facility] 00:00:00 00:00:00 non-drinker of Hospital alcohol (finding) Sex Ass[birth year] At [birth year] [facility] 00:00:00 00:00:00 Hospital Smoking Status Start Date Stop Date Source Social History [facility] Medications Ordered Filled Start Stop Current Ordering Indication Dosage Frequency Signature Comments Components Source Medication Medication Date Date Medication? Clinician (SIG) Name Name rabeprazole 2021-04 Yes 1{tbl} Take 1 Tab Avinash (ACIPHEX) 1-14 by mouth 2 Manny ege 20 MG 14:33: times of tablet 04 daily. Medicin e finasteride 2021-04 Yes 5mg Take 5 mg [facility] (PROSCAR) 5 1-14 by mouth Manny ege MG tablet 14:33: daily. of Medicin e TAMSULOSIN 2021-04 Yes 10mg Take 10 mg [facility] HCL OR 1-[address] [facility] 14:33: 1 cap qhs of Medicin e cetirizine, 2021-04 Yes 10mg Take 10 mg [facility] ZYRTEC, 10 -14 by mouth Colle ge MG tablet 14:33: every of 04 evening. Medicin e aspirin 81 2021-04- No 81mg Take 81 mg [facility] MG tablet 1-14 11-14 by mouth Colle ge 14:32: 00:00 daily. of 56 :00 Medicin e amlodipine 2021-04 No 2.5mg Take 2.5 [facility] (NORVASC) -14 11-[address] [facility] 2.5 MG 14:32: 00:00 mouth of tablet 49 :00 daily. Medicin e Trospium Trospium 2021-04- No 1{table QD Trospium Chloride 20 Chloride 20 0-27 03-26 t_at_be Chloride MG MG 00:00: 00:00 dtime_o 20 MG 00 :00 n_an_em pty_sto mach} carbidopa-l 2021-04 Yes 1{tbl} Take 1 [facility] evodopa 0-[address] [facility] (SINEMET) 00:00: mouth 3 of 25-250 MG [...] Yes 1{tbl} Take 1 Tab Avinash (ACIPHEX) 3-28 by mouth 2 Manny ege [...] 2.5 [facility] (NORVASC) 3-[address] [facility] 2.5 MG 09:20: mouth of tablet 45 daily. Medicin e TAMSULOSIN Yes 10mg Take 10 mg [facility] HCL OR -28 by mouth. College 09:20: 1 cap qhs of 45 Medicin e cetirizine, Yes 10mg Take 10 mg Avinash ZYRTEC, 10 06-28 by mouth Colle ge MG tablet 09:20: every of 45 evening. Medicin e Zinc 100 MG 2021- No Take by Mitch ylor TABS 06-[address] [facility] 09:20: 00:00 of 45 :00 Medicin e Silodosin 8 2021- No 8mg Take 8 mg Avinash MG CAPS 06-[address] [facility] 09:20: 00:00 nightly. of 42 :00 Medicin e Metoprolol 2021- No 50mg Take 50 mg [facility] Succinate 06-28 by mouth Colle ge 50 MG CS24 09:20: 00:00 two times o f 36 :00 daily. Medicin e Docusate 2021- No [id number] Take 3 [facility] Calcium 06-28- capsules [facility] (STOOL 09:20: 00:00 by mouth of SOFTENER 33 :00 nightly. Medicin OR) e Ascorbic 2021- No 500mg Take 500 Coleman benito Acid -28 06- mg by [facility] (VITAMIN C) 09:20: 00:00 mouth. of 500 MG CAPS 27 :00 Medicin e fludrocorti Yes 100ug Take 1 Coleman benito sone - Tablet by [facility] (FLORINEF) 00:00: mouth of 0.1 MG 00 every Medicin tablet morning. e Proscar 5 Proscar 5 0 2022- No 1{table QD Proscar 5 MG [...] tablet 25 daily. Medicin e Docusate Yes [id number] Take 3 Coleman benito Calcium 9-[address] [facility] (STOOL 13:52: by mouth of SOFTENER 25 nightly. Medicin OR) e aspirin 81 Yes 81mg Take 81 mg [facility] - [facility] daily. of 25 Medicin e finasteride Yes 5mg Take 5 mg [facility] (PROSCAR) 5 - by mouth Manny ege MG tablet 13:52: daily. of 25 Medicin e amlodipine Yes 2.5mg Take 2.5 [facility] (NORVASC) 9-[address] [facility] 2.5 MG 13:52: mouth of tablet 25 daily. Medicin e Metoprolol Yes 50mg Take 50 mg [facility] Succinate 9- by mouth [facility] e 50 MG CS24 13:52: two times of 25 daily. Medicin e Silodosin 8 Yes 8mg Take 8 mg [facility] MG CAPS - by mouth [facility] 13:52: nightly. of 25 Medicin e TAMSULOSIN Yes 10mg Take 10 mg [facility] HCL OR 9-[address] [facility] 13:52: 1 cap qhs of 25 Medicin e cetirizine, Yes 10mg Take 10 mg [facility] ZYRTEC, 9-[address] [facility] (ZYRTEC 13:52: every of ALLERGY) 10 25 evening. Medi janis MG tablet e Ascorbic Yes 500mg Take 500 [facility] Acid 9-[address] [facility] (VITAMIN C) 13:52: mouth. of 500 MG CAPS 25 Medicin e Zinc 100 MG Yes Take by Coleman benito TABS - mouth. [facility] 13:52: of 25 Medicin e rabeprazole Yes 1{tbl} Take 1 Tab Avinash (ACIPHEX) - by mouth 2 Manny ege 20 MG 13:52: times of tablet 25 daily. Medicin e Docusate Yes [id number] Take 3 Coleman benito Calcium - capsules [facility] (STOOL 13:52: by mouth of SOFTENER 25 [...] 2.5 [facility] (NORVASC) - mg by [facility] 2.5 MG 13:52: mouth of tablet 25 daily. Medicin e Metoprolol Yes 50mg Take 50 mg [facility] Succinate 12-28 by mouth Colleg e 50 MG CS24 13:52: two times of 25 daily. Medicin e Silodosin 8 Yes 8mg Take 8 mg [facility] MG CAPS 12-[address] [facility] 13:52: nightly. of 25 Medicin e TAMSULOSIN Yes 10mg Take 10 mg [facility] HCL OR - by mouth. [facility] 13:52: 1 cap qhs of 25 Medicin e cetirizine, Yes 10mg Take 10 mg [facility] ZYRTEC, - by mouth [facility] (ZYRTEC 13:52: every of ALLERGY) 10 25 evening. Medi janis MG tablet e Ascorbic Yes 500mg Take 500 [facility] Acid 9- mg by [facility] (VITAMIN C) 13:52: mouth. of 500 MG CAPS 25 Medicin e Zinc 100 MG Yes Take by Coleman benito TABS - mouth. [facility] 13:52: of 25 Medicin e rivastigmin Yes 9mg Take 2 [facility] (EXELON) 9-27 Capsules Colle ge 4.5 MG 00:00: by mouth of capsule 00 two times Medicin daily. e carbidopa-l Yes Take 1.5 [facility] evodopa 9-27 tab [facility], [facility] (SINEMET) 00:00: 1.5 in the of 25-250 [...] Medicin DAY e memantine Yes TAKE 1 [facility] (NAMENDA) 9-09 TABLET BY Colle ge 10 [...] tab, PO, l tablet 19:14: Daily, # [place] 00 30 tab, 1 Refill(s) sertraline Yes 100 mg = 1 M emoria 100 mg oral 7-15 tab, PO, l tablet 19:14: Daily, # Panfilo 00 30 tab, 1 Refill(s) Aspirin 81 2020-0 Yes 81 mg = 1 Me moria MG Enteric 7-15 tab, PO, l Coated 19:14: Daily, # [place] Tablet 00 90 tab, 3 Refill(s) Aspirin 81 2020-0 Yes 81 mg = 1 Me moria MG Enteric 7-15 tab, PO, l Coated 19:14: Daily, # [place] Tablet 00 90 tab, 3 Refill(s) sertraline 0 Yes 100 mg = 1 M emoria 100 mg oral 7-15 tab, PO, l tablet 19:14: Daily, # [place] 00 30 tab, 1 Refill(s) Aspirin 81 2020-0 Yes 81 mg = 1 Me moria MG Enteric 7-15 tab, PO, l Coated 19:14: Daily, # [place] Tablet 00 90 tab, 3 Refill(s) tamsulosin 0 Yes 0.4 mg = 1 M emoria [...] 19:13: Daily, 0 Taj n 00 Refill(s) Carbidopa 2020-0 Yes 1 tab, PO, [...] # 90 l Levodopa 19:12: tab, 0 [place] 250 MG Oral 00 Refill(s) Tablet clonazePAM 2020-0 Yes 0.5 mg = 1 M emoria 0.5 mg oral 7-15 tab, PO, l tablet 19:12: TID, # 90 Taj n 00 tab, 0 Refill(s) Carbidopa 0 Yes 1 tab, PO, Me moria 25 MG / 7-15 TID, # 90 l Levodopa 19:12: tab, 0 Panfilo 250 MG Oral 00 Refill(s) Tablet clonazePAM Yes 0.5 mg = 1 M emoria 0.5 mg oral 7-15 tab, PO, l tablet 19:12: TID, # 90 Taj n 00 tab, 0 Refill(s) Metoprolol Yes 50 mg = 1 Me moria Succinate 7-15 tab, PO, l ER 50 mg 19:10: Daily, # Beverly nn oral 00 30 tab, 0 tablet, Refill(s) extended release rivastigmin Yes 3 mg = 1 Me moria e 3 mg oral 7-15 cap, PO, l capsule 19:10: BID, # 60 Beverly nn 00 cap, 3 Refill(s) Metoprolol 0 Yes 50 mg = 1 Me moria Succinate 7-15 tab, PO, l ER 50 mg 19:10: Daily, # Beverly nn oral 00 30 tab, 0 tablet, Refill(s) extended release rivastigmin 0 Yes 3 mg = 1 Me moria e 3 mg oral 7-15 cap, PO, l capsule 19:10: BID, # 60 Beverly nn 00 cap, 3 Refill(s) Metoprolol 0 Yes 50 mg = 1 Me moria Succinate 7-15 tab, PO, l ER 50 mg 19:10: Daily, # Beverly nn oral 00 30 tab, 0 tablet, Refill(s) extended release rivastigmin 0 Yes 3 mg = 1 Me moria e 3 mg oral 7-15 cap, PO, l capsule 19:10: BID, # 60 Beverly nn 00 cap, 3 Refill(s) amLODIPine Yes 2.5 mg = 1 M emoria 2.5 mg oral 7-15 tab, PO, l tablet 19:07: Daily, # [place] 00 90 tab, 0 Refill(s) sertraline No 100 mg = 1 M emoria 100 mg oral 7-15 tab, PO, l tablet 19:07: Daily, # Panfilo 00 30 tab, 0 Refill(s) atorvastati 0 Yes 20 mg = 1 M emoria n 20 mg 7-15 tab, PO, l oral tablet 19:07: Bedtime, # Panfilo 00 30 tab, 0 Refill(s) amLODIPine 0 Yes 2.5 mg = 1 M emoria 2.5 mg oral 7-15 tab, PO, l tablet 19:07: Daily, # [place] 00 90 tab, 0 Refill(s) sertraline No 100 mg = 1 M emoria 100 mg oral 7-15 tab, PO, l tablet 19:07: Daily, # Panfilo 00 30 tab, 0 Refill(s) atorvastati Yes 20 mg = 1 M emoria n 20 mg 7-15 tab, PO, l oral tablet 19:07: Bedtime, # Panfilo 00 30 tab, 0 Refill(s) amLODIPine Yes 2.5 mg = 1 M emoria 2.5 mg oral 7-15 tab, PO, l tablet 19:07: Daily, # Panfilo 00 90 tab, 0 Refill(s) sertraline No 100 mg = 1 M emoria 100 mg oral 7-15 tab, PO, l tablet 19:07: Daily, # Panfilo 00 30 tab, 0 Refill(s) atorvastati 0 Yes 20 mg = 1 M emoria [...] Taj n 00 tab, 0 Refill(s) midodrine 0 Yes 10 mg = 1 Mem oria 10 mg oral 7-15 tab, PO, l tablet 19:06: TID, # 270 Beverly nn 00 tab, 0 Refill(s) RABEprazole 2020-0 Yes 40 mg = 2 M emoria 20 mg oral 7-15 tab, PO, l enteric 19:06: Daily, # Taj n coated 00 60 tab, 0 tablet Refill(s) memantine 0 Yes 10 mg = 1 Mem oria 10 mg oral 7-15 tab, PO, l tablet 19:06: BID, # 60 Taj n 00 tab, 0 Refill(s) midodrine 0 Yes 10 mg = 1 Mem oria 10 mg oral 7-15 tab, PO, l tablet 19:06: TID, # 270 Beverly nn 00 tab, 0 Refill(s) RABEprazole 0 Yes 40 mg = 2 M emoria 20 mg oral 7-15 tab, PO, l enteric 19:06: Daily, # Taj n coated 00 60 tab, 0 tablet Refill(s) memantine 0 Yes 10 mg = 1 Mem oria [...] tablet 00 times Medicin daily. e midodrine 2020-0 2021- No 2.5mg Take 1 [facility] (PROAMATINE 6-18 03-28 Tablet by Mo cristopher ) 2.5 MG 00:00: 00:00 mouth two of tablet 00 :00 times Medicin daily. e sertraline Yes TAKE 1 [facility] (ZOLOFT) 1-21 TABLET BY Colleg e 100 MG 00:00: MOUTH of tablet 00 EVERY DAY Medicin e clonazepam 2019-04 Yes Can take Coleman benito (KLONOPIN) 2-30 either College 0.5 MG 00:00: half or 1 of tablet 00 tab at Medicin bedtime e for REM sleep behavior disorder(d james/kick ing). If this dose not enough for symptom control, can use 2 tabs at bedtime. clonazepam 2019-04 Yes Can take Coleman benito (KLONOPIN) 2-30 either College 0.5 MG 00:00: half or 1 of tablet 00 tab at Medicin bedtime e for REM sleep behavior disorder(d james/kick ing). If this dose not enough for symptom control, can use 2 tabs at bedtime. clonazepam 2019-04 Yes Can take Coleman benito (KLONOPIN) 2-30 either College 0.5 MG 00:00: half or 1 of tablet 00 tab at Medicin bedtime e for REM sleep behavior disorder(d james/kick ing). If this dose not enough for symptom control, can use 2 tabs at bedtime. clonazepam 2019-04 Can take [facility] (KLONOPIN) 2-30 -28 either Colleg e 0.5 MG 00:00: 00:00 half or 1 of tablet 00 :00 tab at Medicin bedtime e for REM sleep behavior disorder(d james/kick ing). If this dose not enough for symptom control, can use 2 tabs at bedtime. memantine 2019-04 Yes TAKE 1 [facility] (NAMENDA) 2-16 TABLET BY [facility] ge 10 MG 00:00: MOUTH of tablet 00 TWICE A Medicin DAY e amlodipine 2019- Yes 2.5mg Take 2.5 [facility] (NORVASC) 6-[address] [facility] 2.5 MG 18:34: mouth of tablet 47 daily. Medicin e Metoprolol 2019-0 Yes 50mg Take 50 mg [facility] Succinate 6-[address] [facility] e 50 MG CS24 18:34: two times of 47 daily. Medicin e Silodosin 8 2020-0 Yes 8mg Take 8 mg [facility] MG CAPS 6-03 by mouth College 18:34: nightly. of 47 Medicin e rabeprazole 2019- Yes 1{tbl} Take 1 Tab Avinash (ACIPHEX) 6-03 by mouth 2 Manny ege 20 MG 18:24: times of tablet 15 daily. Medicin e Docusate 2020-0 Yes [id number] Take 3 Coleman benito Calcium 6-[address] (STOOL 18:24: by mouth of SOFTENER 15 nightly. Medicin OR) e aspirin 81 2020-0 Yes 81mg Take 81 mg [facility] MG tablet 6-03 by mouth Colleg e 18:24: daily. of 15 Medicin e carbidopa-l 2020-0 Yes Take 1.5 [facility] evodopa 6-[facility]:00: 1.5 in the of 25-250 MG 00 afternoon, Medi janis per tablet and 1 tab e every evening carbidopa-l 2020-0 Yes Take 1.5 [facility] evodopa 6-03 [facility] 00:00: 1.5 in the of 25-250 MG 00 afternoon, Medi janis per tablet and 1 tab e every evening rivastigmin 2020-0 Yes 6mg Take 2 [facility] (EXELON) 6-03 Caps by Colleg e 3 MG 00:00: mouth two of capsule 00 times Medicin daily. e carbidopa-l 2020-0 Yes Take 1.5 [facility] evodopa 6-03 tab [facility] (SINEMET) 00:00: 1.5 in the of 25-250 MG 00 afternoon, Medi janis per tablet and 1 tab e every evening lidocaine-e 2020-0 2020- No 20mL 20 mL, Uni vers pinephrine 4-08 04-08 Intraderma it y of (XYLOCAINE 04:15: 04:51 l, ONCE, 1 [place] WITH 00 :00 dose, Tue Medical EPINEPHRINE 07/09/19 at [facility] ) 1 2315, %-1:100,000 Routine injection 20 mL bacitracin 2020-0 Yes [id number] Apply to Univers 500 4-08 affected ity of unit/gram 00:00: area(s) 4 Tad as ointment 00 (four) Medical times Branch daily. bacitracin 2020-0 Yes [id number] Apply to Univers 500 4-08 affected ity of unit/gram 00:00: area(s) 4 Tad as ointment 00 (four) Medical times Branch daily. ciprofloxac 2020- No [id number] 500mg Take 1 Univers in HCl 500 07-09 tablet by ity of mg tablet 00:00: 04:59 mouth [place] 00 :00 every 12 Medical (twelve) Branch hours for 10 days. ciprofloxac 2020- No [id number] 4[drp] Place 4 Univers in-dexameth 07-09 Drops in ity of asone 00:00: 04:59 left ear 2 [place] (CIPRODEX) 00 :00 (two) Medical 0.3-0.1 % times Branch otic drops daily for 10 days. finasteride 2018-04 Yes 5mg Take 5 mg [facility] (PROSCAR) 5 2-18 by mouth Manny ege MG tablet 15:06: daily. of 25 Medicin e tamsulosin Yes .4mg QD Take 0.[address] [facility] (FLOMAX) 5-02 mg by [facility] 0.4 mg Cp24 18:21: mouth Medic al 24 hr 19 daily. Center capsule finasteride Yes 5mg QD Take [address] (PROPECIA) 5-02 by mouth [facility] 1 mg tablet 18:21: daily. Medi mohini 19 [place] solifenacin Yes 5mg QD Take [address] (VESICARE) 5-02 by mouth [facility] 10 MG 18:21: daily. Medical tablet 19 [place] carbidopa-l Yes 2{tbl} Q.[id number] Take [address] evodopa 5-02 [id number] tablets by [facility] (SINEMET 18:21: 3D mouth 3 Medica l CR) 25-100 19 (three) Center mg per times tablet daily. docusate Yes 100mg Q.5D Take [address] sodium 5-02 mg by [facility] (COLACE) 18:21: mouth 2 Medica l 100 MG 19 (two) Center capsule times daily. aspirin 81 Yes 81mg QD Take [address] MG EC 5-02 by mouth [facility] tablet 18:21: daily. Medical 19 Center rivastigmin Yes 1{patch QD Place [address] e (EXELON) 5-02 } patch onto Larry es 4.6 mg/24 18:21: the skin Medi mohini hr patch 19 daily. [place] mirabegron 2018-0 Yes 50mg QD Take [address] (MYRBETRIQ) 5-02 by mouth Luke s 50 mg Tb24 18:21: daily. Medic al ER tablet 19 Center memantine 2018-0 Yes 5mg Q.5D Take [address] (NAMENDA) 5 5-02 by mouth 2 Aileen kes MG tablet 18:21: (two) Medical 19 times Center daily. sertraline 2018-0 Yes 100mg QD Take [address] (ZOLOFT) 25 5-02 mg by [facility] MG tablet 18:21: mouth Medical 19 daily. [place] RABEprazole 2018-0 Yes 20mg Q.5D Take [address] (ACIPHEX) 5-02 by mouth 2 Luke s 20 mg EC 18:21: (two) Medical tablet 19 times Center daily. tamsulosin 2017-0 Yes .4mg QD Take 0.[address] (FLOMAX) 5-02 mg by [facility] 0.4 mg Cp24 18:21: mouth Medic al 24 hr 19 daily. [place] capsule finasteride 2017-0 Yes 5mg QD Take [address] (PROPECIA) 5-02 by mouth [facility] 1 mg tablet 18:21: daily. [facility] 19 [place] solifenacin 2017-0 Yes 5mg QD Take [address] (VESICARE) 5-02 by mouth [facility] 10 MG 18:21: daily. Medical tablet 19 [place] carbidopa-l 2017-0 Yes 2{tbl} Q.[id number] Take [address] evodopa 5-02 [id number] tablets by [facility] (SINEMET 18:21: 3D mouth 3 Medica l CR) 25-100 19 (three) Center mg per times tablet daily. docusate 2018-0 Yes 100mg Q.5D Take [address] sodium 5-02 mg by [facility] (COLACE) 18:21: mouth 2 Medica l 100 MG 19 (two) Center capsule times daily. aspirin 81 2018-0 Yes 81mg QD Take [address] MG EC 5-02 by mouth [facility] tablet 18:21: daily. Medical 19 Center rivastigmin 2017-0 Yes 1{patch QD Place [address] e (EXELON) 5-02 } patch onto Larry es 4.6 mg/24 18:21: the skin Medi mohini hr patch 19 daily. [place] mirabegron 2018-0 Yes 50mg QD Take [address] (MYRBETRIQ) 5-02 by mouth Luke s 50 mg Tb24 18:21: daily. Medic al ER tablet 19 [place] memantine 2018-0 Yes 5mg Q.5D Take [address] (NAMENDA) 5 5-02 by mouth 2 Aileen kes MG tablet 18:21: (two) Medical 19 times Center daily. sertraline 2018-0 Yes 100mg QD Take [address] (ZOLOFT) 25 5-02 mg by [facility] MG tablet 18:21: mouth Medical 19 daily. [place] RABEprazole 2018-0 Yes 20mg Q.5D Take 20 [...] mouth Medic al 24 hr 19 daily. [place] capsule finasteride 2017-0 Yes 5mg QD Take [address] (PROPECIA) 5-02 by mouth [facility] 1 mg tablet 18:21: daily. Medi mohini 19 [place] solifenacin 2018-0 Yes 5mg QD Take [address] (VESICARE) 5-02 by mouth [facility] 10 MG 18:21: daily. Medical tablet 19 [place] carbidopa-l 2018-0 Yes 2{tbl} Q.[id number] Take [address] evodopa 5-02 [id number] tablets by [facility] (SINEMET 18:21: 3D mouth 3 Medica l CR) 25-100 19 (three) Center mg per times tablet daily. docusate 2018-0 Yes 100mg Q.5D Take [address] sodium 5-02 mg by [facility] (COLACE) 18:21: mouth 2 Medica l 100 MG 19 (two) Center capsule times daily. aspirin 81 2018-0 Yes 81mg QD Take [address] MG EC 5-02 by mouth [facility] tablet 18:21: daily. Medical 19 Center rivastigmin 2017-0 Yes 1{patch QD Place [address] e (EXELON) 5-02 } patch onto Larry es 4.6 mg/24 18:21: the skin Medi mohini hr patch 19 daily. [place] mirabegron 0 Yes 50mg QD Take [address] (MYRBETRIQ) 5-02 by mouth Luke s 50 mg Tb24 18:21: daily. Medic al ER tablet 19 [place] memantine 0 Yes 5mg Q.5D Take [address] (NAMENDA) 5 5-02 by mouth 2 Aileen kes MG tablet 18:21: (two) Medical 19 times Center daily. sertraline 0 Yes 100mg QD Take [address] (ZOLOFT) 25 5-02 mg by [facility] MG tablet 18:21: mouth Medical 19 daily. [place] aspirin 0 Yes 81mg QD Take 81 mg Meth kristi (ECOTRIN) 4-[address] 81 MG 09:30: daily. Hospita enteric 29 l coated tablet docusate 2017-0 Yes 100mg Take 100 [facility] kristi sodium 4-[address] (COLACE) 09:30: mouth. 3 a Hos qu[facility] 100 MG 29 day l capsule aspirin 0 Yes 81mg QD Take 81 mg Meth kristi (ECOTRIN) 4-[address] 81 MG 09:30: daily. Hospita enteric 29 l coated tablet aspirin 2017-0 Yes 81mg QD Take 81 mg Meth kristi (ECOTRIN) 4-[address] 81 MG 09:30: daily. Hospita enteric 29 l coated tablet docusate 2017-0 Yes 100mg Take 100 Meth kristi sodium 4-[address] (COLACE) 09:30: mouth. 3 a Hos quyn[facility] 100 MG 29 day l capsule docusate 2017-0 Yes 100mg Take 100 Meth kristi sodium 4-[address] (COLACE) 09:30: mouth. 3 a Hos quyn[facility] 100 MG 29 day l capsule aspirin 2017-0 Yes 81mg QD Take 81 mg Meth kristi (ECOTRIN) 4-[address] 81 MG 09:30: daily. Hospita enteric 29 l coated tablet docusate 2017-0 Yes 100mg Take 100 Meth kristi sodium 4-[address] (COLACE) 09:30: mouth. 3 a Hos quyn[facility] 100 MG 29 day l capsule solifenacin 2016-0 Yes Method i (VESICARE) 4-17 st 10 MG 00:00: Hospita tablet 00 l solifenacin 2017-0 Yes [facility] (VESICARE) 4-17 st 10 MG 00:00: Hospita tablet 00 l solifenacin 2017-0 Yes [facility] (VESICARE) 4-17 st 10 MG 00:00: Hospita tablet 00 l solifenacin 2017-0 Yes [facility] (VESICARE) 4-17 st 10 MG 00:00: Hospita tablet 00 l ZOLOFT 100 2017-0 Yes Methodi mg tablet 3-30 st 00:00: Hospita 00 l SINEMET 2017-0 Yes Methodi 25-100 mg 3-30 st per tablet 00:00: Hospita 00 l SINEMET 2017-0 Yes [...] 3-30 st 00:00: Hospita 00 l finasteride 2017-0 Yes 5mg QD Take 5 mg M ethodi (PROSCAR) 5 3-[address] mg tablet 00:00: once Hospita 00 daily. l finasteride 2017-0 Yes 5mg QD Take 5 mg M ethodi (PROSCAR) 5 3-[address] mg tablet 00:00: once Hospita 00 daily. l finasteride 2017-0 Yes 5mg QD Take 5 mg M ethodi (PROSCAR) 5 3-[address] mg tablet 00:00: once Hospita 00 daily. l finasteride 2017-0 Yes 5mg QD Take 5 mg M ethodi (PROSCAR) 5 3-[address] mg tablet 00:00: once Hospita 00 daily. l RABEprazole Yes TAKE 1 Meth kristi (ACIPHEX) 2-[address] 20 mg EC 00:00: ORAL ROUTE Hos quynh tablet 00 2 TIMES l EVERY DAY RABEprazole Yes TAKE 1 Meth kritsi (ACIPHEX) 2-[address] 20 mg [...] HCl 100 MG Flomax 0.4 Flomax 0.4 2022- No 1{capsu QD Flomax 0.4 MG MG 10-22 le} MG 00:00 :00 Vital Signs Vital Name Observation Time Observation Value Comments Source Systolic blood 2022-02-14 20:32:00 89 mm[Hg] [facility] Diastolic blood 2022-02-14 20:32:00 54 mm[Hg] [facility] Medicine Heart rate 2022-02-14 20:32:00 81 /min [facility] Body weight 2022-02-14 20:32:00 79.878 kg [facility] BMI 2022-02-14 20:32:00 25.27 kg/m2 [facility] height 2022-01-27 15:15:00 70 [in_i] [facility] weight 2022-01-27 15:15:00 165 [lb_av] [facility] temperature 2022-01-27 15:15:00 98.1 [degF] [facility] bmi 2022-01-27 15:15:00 23.67 kg/m2 [facility] oximetry 2022-01-27 15:15:00 97 % [facility] respiratory rate 2022-01-27 15:15:00 18 /min Comm on [facility] blood pressure 2022-01-27 15:15:00 89 mm[Hg] [facility] - systolic [facility] blood pressure 2022-01-27 15:15:00 54 mm[Hg] [facility] diastolic [facility] Systolic blood 2021-06-28 14:20:00 138 mm[Hg] [facility] Medicine Diastolic blood 2021-06-28 14:20:00 78 mm[Hg] [facility] Heart rate 2021-06-28 14:20:00 62 /min [facility] Body weight 2021-06-28 14:20:00 79.379 kg [facility] BMI 2021-06-28 14:20:00 25.11 kg/m2 [facility] Systolic blood 2020-12-28 18:47:00 135 mm[Hg] [facility] Medicine Diastolic blood 2020-12-28 18:47:00 74 mm[Hg] [facility] Medicine Heart rate 2020-12-28 18:47:00 58 /min [facility] Body weight 2020-12-28 18:47:00 83.144 kg [facility] BMI 2020-12-28 18:47:00 26.30 kg/m2 [facility] Systolic blood 2020-06-29 15:20:00 103 mm[Hg] [facility] Medicine Diastolic blood 2020-06-29 15:20:00 61 mm[Hg] [facility] Medicine Heart rate 2020-06-29 15:20:00 60 /min [facility] Respiratory rate 2020-06-29 15:20:00 12 /min [facility] Body height 2020-06-29 15:20:00 177.8 cm [facility] Body weight 2020-06-29 15:20:00 90.719 kg [facility] BMI 2020-06-29 15:20:00 28.70 [facility] Systolic blood 2019-07-10 07:31:00 114 mm[Hg] [facility] Diastolic blood 2019-07-10 07:31:00 68 mm[Hg] [facility] Heart rate 2019-07-10 07:31:00 68 /min [facility] Body temperature 2019-07-10 07:31:00 36.78 Marjorie [facility] Respiratory rate 2019-07-10 07:31:00 16 /min [facility] Oxygen saturation in 2019-07-10 07:31:00 93 /min [facility] Arterial blood by [facility] Pulse oximetry Branch Body weight 2019-07-10 01:55:00 90.719 kg [facility] Systolic (mm Hg) 2020-10-15 18:38:00 Zain nancie Panfilo Diastolic (mm Hg) 2020-10-15 18:38:00 Ryan Henningann Heart Rate 2020-10-15 18:38:00 [facility] Respitory Rate 2020-10-15 18:38:00 Janak Bashir Procedures Procedure Date / Time Performed Performing Clinician Sour e AMB REF TO PT 2022-02-14 15:18:49 [facility] EXTERNAL Medicine AMB REF TO OCC 2022-02-14 15:18:49 [facility] THERAPY EXTERNAL Medicine AMB REF TO HOME 2022-02-14 15:18:49 [facility] HEALTH EXTERNAL Medicine EXTERNAL PROVIDER 2019-07-24 05:01:00 Doctor Unassigned, No [facility] [place] RECORDS Name Medical Branch Cholecystectomy<sup>2 [facility] ermann </sup> Appendectomy<sup>1</s [facility] ermann up> Plan of Care Planned Activity Planned Date Details Comments Source Future Scheduled 2022-05-01 COVID-19 VACCINE (#1) [facility] Test 10:29:53 [code = COVID-19 VACCINE (#1)] Future Scheduled 2022-05-01 COLONOSCOPY SCREENING [facility] Test 10:29:53 [code = COLONOSCOPY SCREENING] Future Scheduled 2022-05-01 SHINGLES VACCINES (1 Met [facility] Test 10:29:53 of 2) [code = SHINGLES VACCINES (1 of 2)] Future Scheduled 2022-05-01 65+ P[facility]UMOCOCCAL [facility] Test 10:29:53 VACCINE (1 - PCV) [code = 65+ PNEUMOCOCCAL VACCINE (1 - PCV)] Future Scheduled 2022-05-01 INFLUENZA VACCINE [facility] Test 10:29:53 [code = INFLUENZA VACCINE] Future Scheduled 2022-05-01 COVID-19 VACCINE (#1) [facility] Test 10:29:53 [code = COVID-19 VACCINE (#1)] Future Scheduled 2022-05-01 COLONOSCOPY SCREENING [facility] Test 10:29:53 [code = COLONOSCOPY SCREENING] Future Scheduled 2022-05-01 SHINGLES VACCINES (1 Met [facility] Test 10:29:53 of 2) [code = SHINGLES VACCINES (1 of 2)] Future Scheduled 2022-05-01 65+ P[facility]UMOCOCCAL [facility] Test 10:29:53 VACCINE (1 - PCV) [code = 65+ PNEUMOCOCCAL VACCINE (1 - PCV)] Future Scheduled 2022-05-01 INFLUENZA VACCINE [facility] Test 10:29:53 [code = INFLUENZA VACCINE] Future Scheduled 2022-02-14 Screening for [facility] Col lege of Test 14:32:46 malignant neoplasm of Medici ne colon (procedure) [code = [id number]] Future Scheduled 2022-02-14 TETANUS SHOT (ADULT) [facility] of Test 14:32:46 [code = TETANUS SHOT Medicin e (ADULT)] Future Scheduled 2022-02-14 BMI FOLLOW UP PLAN [facility] of Test 14:32:46 [code = BMI FOLLOW UP Medici ne PLAN] Future Scheduled 2022-02-14 Hepatitis C screening [facility] of Test 14:32:46 (procedure) [code = Medicine [id number]] Future Scheduled 2022-02-14 ZOSTER VACCINE (1 of [facility] of Test 14:32:46 2) [code = ZOSTER Medicine VACCINE (1 of 2)] Future Scheduled 2022-02-14 FALL SCREEN [code = [facility] of Test 14:32:46 FALL SCREEN] Medicine Future Scheduled 2022-02-14 Pneumococcal 65+ (1 - [facility] of Test 14:32:46 PCV) [code = Medicine Pneumococcal 65+ (1 - PCV)] Future Scheduled 2022-02-14 MEDICARE AWV (Initial) B [facility] of Test 14:32:46 [code = MEDICARE AWV Medicin e (Initial)] Future Scheduled 2022-02-14 COVID-19 Vaccine (3 - Ba [facility] of Test 14:32:46 Booster for Moderna Medicine series) [code = COVID-19 Vaccine (3 - Booster for Moderna series)] Future Scheduled 2022-02-14 FLU VACCINE > 6 MONTHS B [facility] of Test 14:32:46 [code = FLU VACCINE > Medici ne 6 MONTHS] Future Scheduled 2021-12-03 HEPATITIS [facility] Test 09:41:45 (1 of 3 - 3-dose series) [code = HEPATITIS B VACCINES (1 of 3 - 3-dose series)] Future Scheduled 2021-12-03 COVID-19 VACCINE (#1) [facility] Test 09:41:45 [code = COVID-19 VACCINE (#1)] Future Scheduled 2021-12-03 COLONOSCOPY SCREENING [facility] Test 09:41:45 [code = COLONOSCOPY SCREENING] Future Scheduled 2021-12-03 SHINGLES VACCINES (1 Met [facility] Test 09:41:45 of 2) [code = SHINGLES VACCINES (1 of 2)] Future Scheduled 2021-12-03 65+ [facility]NEUMOCOCCAL [facility] Test 09:41:45 VACCINE (1 - PCV) [code = 65+ PNEUMOCOCCAL VACCINE (1 - PCV)] Future Scheduled 2021-12-03 INFLUENZA VACCINE [facility] Test 09:41:45 [code = INFLUENZA VACCINE] Future Scheduled 2021-12-03 HEPATITIS B VACCINES Met [facility] Test 09:41:45 (1 of 3 - 3-dose series) [code = HEPATITIS B VACCINES (1 of 3 - 3-dose series)] Future Scheduled 2021-12-03 COVID-19 VACCINE (#1) [facility] Test 09:41:45 [code = COVID-19 VACCINE (#1)] Future Scheduled 2021-12-03 COLONOSCOPY SCREENING [facility] Test 09:41:45 [code = COLONOSCOPY SCREENING] Future Scheduled 2021-12-03 SHINGLES VACCINES (1 Met [facility] Test 09:41:45 of 2) [code = SHINGLES VACCINES (1 of 2)] Future Scheduled 2021-12-03 65+ PNEUMOCOCCAL [facility] Test 09:41:45 VACCINE (1 - PCV) [code = 65+ PNEUMOCOCCAL VACCINE (1 - PCV)] Future Scheduled 2021-12-03 INFLUENZA VACCINE [facility] Test 09:41:45 [code = INFLUENZA VACCINE] Future Scheduled 2021-06-28 Screening for [facility] of Test 09:20:49 malignant neoplasm of Medici ne colon (procedure) [code = [id number]] Future Scheduled 2021-06-28 TETANUS SHOT (ADULT) [facility] of Test 09:20:49 [code = TETANUS SHOT Medicin e (ADULT)] Future Scheduled 2021-06-28 BMI FOLLOW UP PLAN [facility] of Test 09:20:49 [code = BMI FOLLOW UP Medici ne PLAN] Future Scheduled 2021-06-28 Hepatitis C screening [facility] of Test 09:20:49 (procedure) [code = Medicine [id number]] Future Scheduled 2021-06-28 ZOSTER VACCINE (1 of [facility] of Test 09:20:49 2) [code = ZOSTER Medicine VACCINE (1 of 2)] Future Scheduled 2021-06-28 Pneumococcal 65+ (1 of B [facility] of Test 09:20:49 1 - PPSV23) [code = Medicine Pneumococcal 65+ (1 of 1 - PPSV23)] Future Scheduled 2021-06-28 MEDICARE AWV (Initial) B [facility] of Test 09:20:49 [code = MEDICARE AWV Medicin e (Initial)] Future Scheduled 2021-06-28 FLU VACCINE > 6 MONTHS B [facility] of Test 09:20:49 [code = FLU VACCINE > Medici ne 6 MONTHS] Future Scheduled 2021-06-28 COVID-19 Vaccine (3 - Ba [facility] of Test 09:20:49 Booster for Moderna Medicine series) [code = COVID-19 Vaccine (3 - Booster for Moderna series)] Future Scheduled 2021-06-28 FALL SCREEN [code = [facility] of Test 09:20:49 FALL SCREEN] Medicine Future Scheduled 2020-12-28 FALL SCREEN [code = [facility] of Test 13:44:09 FALL SCREEN] Medicine Future Scheduled 2020-12-28 Screening for [facility] Col lege of Test 13:44:09 malignant neoplasm of Medici ne colon (procedure) [code = [id number]] Future Scheduled 2020-12-28 TETANUS SHOT (ADULT) [facility] of Test 13:44:09 [code = TETANUS SHOT Medicin e (ADULT)] Future Scheduled 2020-12-28 BMI FOLLOW UP PLAN [facility] of Test 13:44:09 [code = BMI FOLLOW UP Medici ne PLAN] Future Scheduled 2020-12-28 Hepatitis C screening [facility] of Test 13:44:09 (procedure) [code = Medicine [id number]] Future Scheduled 2020-12-28 ZOSTER VACCINE (1 of [facility] of Test 13:44:09 2) [code = ZOSTER Medicine VACCINE (1 of 2)] Future Scheduled 2020-12-28 PNEUMOVAX >=65 [facility] Co llege of Test 13:44:09 (PPSV23) [code = Medicine PNEUMOVAX >=65 (PPSV23)] Future Scheduled 2020-12-28 FLU VACCINE > 6 MONTHS B [facility] of Test 13:44:09 [code = FLU VACCINE > Medici ne 6 MONTHS] Future Scheduled 2020-12-28 FALL SCREEN [code = [facility] of Test 13:44:09 FALL SCREEN] Medicine Future Scheduled 2020-12-28 Screening for [facility] Col lege of Test 13:44:09 malignant neoplasm of Medici ne colon (procedure) [code = [id number]] Future Scheduled 2020-12-28 TETANUS SHOT (ADULT) [facility] 13:44:09 [code = TETANUS SHOT Medicin e (ADULT)] Future Scheduled 2020-12-28 BMI FOLLOW UP PLAN [facility] 13:44:09 [code = BMI FOLLOW UP Medici ne PLAN] Future Scheduled 2020-12-28 Hepatitis C screening [facility] Test 13:44:09 (procedure) [code = Medicine [id number]] Future Scheduled 2020-12-28 ZOSTER VACCINE (1 of [facility] 13:44:09 2) [code = ZOSTER Medicine VACCINE (1 of 2)] Future Scheduled 2020-12-28 PNEUMOVAX >=65 [facility]lege of Test 13:44:09 (PPSV23) [code = Medicine PNEUMOVAX >=65 (PPSV23)] Future Scheduled 2020-12-28 FLU VACCINE > 6 MONTHS B [facility] Test 13:44:09 [code = FLU VACCINE > Medici ne 6 MONTHS] Future Scheduled Screening for [facility] Col lege of Test malignant neoplasm of Medici ne colon (procedure) [code = 489543096] Future Scheduled TETANUS SHOT (ADULT) [facility] Test [code = TETANUS SHOT Medicin e (ADULT)] Future Scheduled BMI FOLLOW UP PLAN [facility] Test [code = BMI FOLLOW UP Medici ne PLAN] Future Scheduled Hepatitis C screening [facility] (procedure) [code = Medicine [id number]] Future Scheduled ZOSTER VACCINE (1 of [employer] of Test 2) [code = ZOSTER Medicine VACCINE (1 of 2)] Future Scheduled FALL SCREEN [code = [facility] of Test FALL SCREEN] Medicine Future Scheduled PNEUMOVAX >=65 [facility] llege of Test (PPSV23) [code = Medicine PNEUMOVAX >=65 (PPSV23)] Future Scheduled FLU VACCINE > 6 MONTHS B [facility] of Test [code = FLU VACCINE > Medici ne 6 MONTHS] Encounters Start End Encounter Admission Attending Care Care Encounter Source Date/Time Date/Time Type Type Clinicians Facility Department ID 2022-01-27 Outpatient [place], [facility] [id number] Common 14:23:03 Felipe [address]23[address] [facility] 2022-02-14 2022-02-14 Office PHONG MARQUEZ [id number] [facility] 13:26:11 15:09:44 Visit STEF AMBULATOR 350.1.13.21 College Y 0.2.7.2.686 of [id number] [facility] 800 e 2022-01-27 2022-01-27 OFFICE [facility] [id number] Co mmon 00:00:00 00:00:00 VISIT EST Spir it PT LEVEL 3 - [facility] 2021-06-28 2021-06-28 Office PHONG MARQUEZ [id number] [facility] 09:13:10 10:32:00 Visit STEF AMBULATOR 350.1.13.21 College Y 0.2.7.2.686 of [id number] [facility] 800 e 2020-12-28 2020-12-28 Office PHONG Marquez [id number] [facility] 13:07:10 13:22:10 Visit Stef AMBULATOR 350.1.13.21 College Y 0.2.7.2.686 of [id number] [facility] janis 800 e 2020-10-15 2020-10-16 Outpatient nullFlavo MNA [id number] [facility] 18:45:00 04:59:59 r Neurology 00 l Carol Ann Whittaker 2020-10-15 2020-10-16 Outpatient nullFlavo MNA [id number] [facility] 18:45:00 04:59:59 r Neurology 00 l Monarchneha Whittaker 2020-10-15 2020-10-15 Outpatient ROSALVA Collins [facility] [id number] 13:45:00 23:59:59 Christiano 00 Yuri 2020-10-15 2020-10-15 Outpatient MHIE BOUCHRA [id number] [facility] 13:45:00 13:45:00 00 l Panfilo 2020-06-29 2020-06-29 Office PHONG Marquez [id number] [facility] 09:41:34 09:56:34 Visit Stef AMBULATOR 350.1.13.21 College Y 0.2.7.2.686 of [id number] [facility] 800 e 2019-07-24 2019-07-24 Orders Doctor MORRIS [id number] Univers 00:00:00 00:00:00 Only Unassigned, KHURRAM 350.1.13.10 ity [facility] [place] [facility] 4.2.7.2.686 Tad as [id number] [facility] 009 Branch 2019-07-09 2019-07-10 Emergency Shayy Nicole TRAUMA [id number] [id number] Univers 20:42:57 02:57:00 Colton Lomas [place] 350.1.13.10 [place] [id number] [facility] 014 Branch 2019-07-09 2019-07-09 Emergency X [facility] ERT [id number] Univers 20:42:57 20:42:57 ity of [facility] Results Test Description Test Time Test Comments [...] SOURCE(BEAKER) (test code = 2795) BASIC METABOLIC [id number] 05:53:00 Test Item Value Reference Range Interpretation [...] PATIEN TS. CBC W/PLT COUNT & AUTO [id number] 05:39:00 Test Item Value Reference Range Interpretation [...] PERCENT (BEAKER) (test code = 2801) POCT-GLUCOSE [id number] 12:48:00 Test Item Value Reference Range Interpretation Comments POC-GLUCOSE METER 111 mg/dL 70-110 H TESTED AT [facility] 6720 (BEAKER) (test code = LEATHA Armstrong [place] 1538) [address] POCT-GLUCOSE [id number] 06:51:00 Test Item Value Reference Range Interpretation Comments POC-GLUCOSE METER 113 mg/dL 70-110 H TESTED AT [facility] 6720 (BEAKER) (test code = LEATHA Armstrong [place] 1538) [address] BASIC METABOLIC [id number] 04:35:00 Test Item Value Reference Range Interpretation [...] PATIEN TS. CBC W/PLT COUNT & AUTO [id number] 04:10:00 Test Item Value Reference Range Interpretation [...] PERCENT (BEAKER) (test code = 2801) POCT-GLUCOSE [id number] 03:43:00 Test Item Value Reference Range Interpretation Comments POC-GLUCOSE METER 177 mg/dL 70-110 H TESTED AT [facility] 6720 (BEAKER) (test code = LEATHA [place] 1538) [address] POCT-GLUCOSE [id number] 22:34:00 Test Item Value Reference Range Interpretation Comments POC-GLUCOSE METER 128 mg/dL 70-110 H TESTED AT [facility] 6720 (BEAKER) (test code = LE[place]HA [place] 1538) [address] POCT-GLUCOSE [id number] 22:19:00 Test Item Value Reference Range Interpretation Comments POC-GLUCOSE METER 126 mg/dL 70-110 H TESTED AT [facility] 6720 (RICKYBANNER) (test code = LEATHA Armstrong [place] 1538) [address] POCT-GLUCOSE [id number] 12:26:00 Test Item Value Reference Range Interpretation Comments POC-GLUCOSE METER 136 mg/dL 70-110 H TESTED AT [facility] 6720 (YOSSI) (test code = LEATHA Armstrong [place] 1538) [address] POCT-GLUCOSE [id number] 08:22:00 Test Item Value Reference Range Interpretation Comments POC-GLUCOSE METER 108 mg/dL 70-110 TESTED AT [facility] 6720 (RICKYBANNER) (test code = LEATHA Armstrong [facility] 1538) [address] CT BRAIN WITHOUT IV CONTRAST - [id number] 08:16:00Reason for exam:->SDHFINAL REPORT CT Head without [...] MDReport Verified Date/Time: 07/30/2017 08:16:45 Reading Location: [facility] Neuro Reading Room MAGNESIUM 2017-07-30 05:36:00 Test Item Value Reference Range Interpretation Comments MAGNESIUM (BEAKER) 2.1 mg/dL 1.6-2.6 Specimen slightly (test code = 627) hemolyzed Once on admission and Daily AM afterwardsOnce on admission and Daily AM afterwardsOnce on admission and Daily AM [id number] 05:36:00 Test Item Value Reference Range Interpretation [...] Daily AM afterwardsCBC W/PLT COUNT & AUTO [id number] 04:16:00 Test Item Value Reference Range Interpretation [...] PERCENT (BEAKER) (test code = 2801) POCT-GLUCOSE [id number] 22:02:00 Test Item Value Reference Range Interpretation Comments POC-GLUCOSE METER 118 mg/dL 70-110 H TESTED AT [facility] 6720 (BEAKER) (test code = LEATHA [place] 1538) [address] URINALYSIS W/ [id number] 18:07:00 Test Item Value Reference Range Interpretation [...] 516) SOURCE(BEAKER) (test code = 2795) TROPONIN [id number] 17:06:00 Test Item Value Reference Range Interpretation [...] acute neurological disease, and persistent tachyarrhythmia.HEPATIC FUNCTION [id number] 15:29:00 Test Item Value Reference Range Interpretation [...] = < U/L 6-55 L 347) PROTHROMBIN [id number] 15:11:00 Test Item Value Reference Range Interpretation Comments PROTIME (BEAKER) (test code = 13.9 seconds 11.7-14.7 759) INR (BEAKER) (test code = 370) 1.1 <=5.9 RECOMMENDED COUMADIN/WARFARIN INR THERAPY RANGESSTANDARD DOSE: 2.0 - 3.0 Includes: PROPHYLAXIS for venous thrombosis, systemic embolization; TREATMENT for venous thrombosis and/or pulmonary embolus.HIGH RISK: Target INR is 2.5-3.5 for patients with mechanical heart valves.[id number] 15:11:00 Test Item Value Reference Range Interpretation Comments PARTIAL THROMBOPLASTIN TIME 29.9 seconds 22.5-36.0 (BEAKER) (test code = 760)
[2022-05-16] MEDS ORDERED: ONDANSETRON 4 MG/2 ML VIAL ONE (12:58)
[2022-05-16] MEDS ORDERED: NA CHLORIDE 0.9% 500 ML ONE (12:58)
[2022-05-16 13:02] LABS: Absolute Lymphocytes (CBC) 1.2 K/uL (0.7-4.9); Hematocrit 36.9 % (39.6-49.0); Lymphocytes % 4.7 % (15.3-44.8); MCV 90.9 fL (80-100); RBC Red Blood Cell Count 4.06 M/uL (4.33-5.43)
--- NOTE | 2022-05-16 13:16 | RAD REPORT ---
EXAM DESCRIPTION: RAD - Chest Single View - 05/16/2022 12:41 pm CLINICAL HISTORY: COUGH Chest pain. COMPARISON: Chest Single View dated 05/01/2022; Chest Pa And Lat (2 Views) dated 02/23/2022; Chest Pa And Lat (2 Views) dated 12/30/2021; Chest Single View dated 12/18/2021; Thorax Wo Con dated 05/13/2022 FINDINGS: Portable technique limits examination quality. There is moderate opacification of the left lung likely related to pleural effusion. A left pleural c atheter is in place directed caudally. The right lung is grossly clear. The heart is upper limit norm al in size.
[2022-05-16 13:17] LABS: SARS-CoV-2 Antigen Rapid Res Negative (Negative)
[2022-05-16 13:24] LABS: Bilirubin Total 0.7 mg/dL (0.2-1.0); Magnesium 1.8 mg/dL (1.6-2.4); Potassium 3.7 mmol/L (3.5-5.1); Protein, Total 5.9 g/dL (6.4-8.2); Troponin High Sensitivity 12.6 pg/mL (<58.9)
[2022-05-16 13:30] LABS: Blood Morphology Comment NOT SEEN (NOT SEEN); Platelet Estimate ADEQ; White Blood Cell Scan OK (OK)
[2022-05-16] MEDS ORDERED: CEFTRIAXONE 1000 MG/VIAL ONE (13:43)
[2022-05-16] MEDS ORDERED: AZITHROMYCIN 500 MG INJ IVPB ONE (13:43)
[2022-05-16] MEDS ORDERED: NA CHLORIDE 0.9% 250 ML ONE ×2 (13:43→14:23)
[2022-05-16] MEDS ORDERED: OSELTAMIVIR 75 MG CAP PO ONE (13:45)
--- NOTE | 2022-05-16 13:55 | ER ---
Nurse's Notes [facility] Name: Osman Foy Jr Age: 72 yrs Sex: Male : 1950 Arrival Date: 05/16/2022 Time: 11:53 Bed 24 Private MD: Tiffanie Hobson C Diagnosis: Influenza due to unidentified influenza virus with other respiratory manifestations;Unspecified bacterial pneumonia Presentation: 05/16 12:02 Chief complaint: Patient states: late stage parkinsons; not wanting to eat, right hand jh5 is swollen, horrible cough x4 days and its gotten worse. He has had a lung tube x4 months for drainage of fluids. We called Dr. Hobson and he said to bring him over here. Coronavirus screen: Vaccine status: Patient reports receiving the 2nd dose of the covid vaccine. Client denies travel out of the [place] in the last 14 days. Ebola Screen: Patient negative for fever greater than or equal to 101.5 degrees Fahrenheit, and additional compatible Ebola Virus Disease symptoms Patient denies exposure to infectious person. Patient denies travel to an Ebola-affected area in the 21 days before illness onset. Initial Sepsis Screen: Does the patient meet any 2 criteria? No. Patient's initial sepsis screen is negative. Does the patient have a suspected source of infection? No. Patient's initial sepsis screen is negative. Risk Assessment: Do you want to hurt yourself or someone else? Patient reports no desire to harm self or others. 12:02 Method Of Arrival: Ambulatory [facility] 12:02 Acuity: SHELIA 3 jh5 Triage Assessment: 12:06 General: Appears uncomfortable, well groomed, well developed, well nourished, Behavior 5 is calm, cooperative, appropriate for age. Pain: Denies pain. Historical: - PMHx: 12:06 Parkinsons; Hypertensive disorder; Brain bleed; 5 - PSHx: 12:06 Cholecystectomy; Appendectomy; Vasectomy; [facility] - Immunization history:: Adult Immunizations up to date. - Social history:: Smoking status: Patient denies any tobacco usage or history of. Screenin:10 [facility] ED Fall Risk Assessment (Adult) History of falling in the last 3 months, mb9 including since admission No falls in past 3 months (0 pts) Confusion or Disorientation No (0 pts) Intoxicated or Sedated No (0 pts) Impaired Gait Yes (1 pt) Mobility Assist Device Used Yes (1 pt) Altered Elimination No (0 pt) Score/Fall Risk Level 0 - 2 = Low Risk Oriented to surroundings, Maintained a safe environment, Educated pt \T\ family on fall prevention, incl call for assistance when getting out of bed. Abuse screen: Denies threats or abuse. Nutritional screening: No deficits noted. Tuberculosis screening: No symptoms or risk factors identified. Assessment: 12:30 General: Appears uncomfortable, Behavior is calm, cooperative. Pain: Complains of pain mb9 in left rib Pain radiates to right rib Pain currently is 5 out of 10 on a pain scale. Quality of pain is described as throbbing, Aggravated by coughing. Neuro: Macdonald Agitation-Sedation Scale (RASS): 0 - Alert and Calm Level of Consciousness is awake, alert, obeys commands, Oriented to person, place, time, situation, Appropriate for age. 12:30 Cardiovascular: Heart tones S1 S2 present Capillary refill is > 3 seconds is sluggish mb9 in bilateral Patient's skin is warm and dry. Rhythm is regular. Respiratory: Airway is patent Respiratory effort is even, unlabored, Respiratory pattern is regular, symmetrical, left drain in pleural cavity Breath sounds are coarse bilaterally. GI: Abdomen is flat, non-distended, Reports nausea, decreased appetite. : No signs and/or symptoms were reported regarding the genitourinary system. EENT: No signs and/or symptoms were reported regarding the EENT system. Derm: Skin is pink, warm \T\ dry. Musculoskeletal: Range of motion: intact in all extremities, Swelling present in right hand. 14:00 Reassessment: No changes from previously documented assessment. Patient and/or family mb9 updated on plan of care and expected duration. Pain level reassessed. Patient is alert, oriented x 3, equal unlabored respirations, skin warm/dry/pink. 15:07 Reassessment: attempted to call report to admitting nurse. mb9 Vital Signs: 12:02 BP 111 / 71; Pulse 87; Resp 20; Temp 98.8; Pulse Ox 94% ; Weight 72.57 kg; Height 5 ft. jh5 8 in. (172.72 cm); Pain 0/10; 13:29 BP 131 / 66; Pulse 83; Resp 20; Pulse Ox 96% on R/A; mb9 13:35 Pulse 78; Pulse Ox 92% on R/A; mb9 13:35 Pulse 82; Resp 28; Pulse Ox 96% on 1 lpm NC; mb9 14:48 BP 133 / 70; Pulse 82; Resp 26; Pulse Ox 95% on 1 lpm NC; mb9 15:37 BP 117 / 72; Pulse 79; Resp 26; Pulse Ox 97% on 2 lpm NC; mb9 12:02 Body Mass Index 24.33 (72.57 kg, 172.72 cm) jh5 13:35 placed pt on 2L/min via nasal cannula. Oxygen saturation now 97% mb9 ED Course: 11:53 Patient arrived in ED. as 11:54 Tiffanie Hobson MD is Private Physician. as 12:06 Triage completed. 5 12:06 Arm band placed on left wrist. jh5 12:08 Placed in gown. Bed in low position. Call light in reach. Side rails up X 1. Client mb9 placed on continuous cardiac and pulse oximetry monitoring. NIBP monitoring applied. print manager on. 12:09 Shanita Garrett, JOSE is Primary Nurse. mb9 12:10 Da Aiken MD is Attending Physician. bs3 12:50 Inserted saline lock: 22 gauge in left hand, using aseptic technique. mb9 12:50 EKG done, by ED staff, reviewed by Da Aiken MD. mb9 12:54 Influenza Screen (a \T\ B) Sent. mb9 12:54 SARS-COV-2 Antigen Rapid Sent. mb9 12:54 CBC with Diff Sent. mb9 12:54 Magnesium Sent. mb9 12:54 NT PRO-BNP Sent. mb9 12:54 Troponin HS Sent. mb9 12:54 CMP Sent. mb9 13:27 No provider procedures requiring assistance completed. mb9 13:48 Protime (+inr) Sent. mb9 13:48 Ptt, Activated Sent. mb9 13:54 Tiffanie Hobosn MD is Hospitalizing Provider. bs3 14:05 Blood Culture Adult (2) Sent. mb9 14:34 Inserted saline lock: 20 gauge in right forearm, using aseptic technique. mb9 15:37 Patient admitted, IV remains in place. mb9 Administered Medications: 13:00 Drug: NS 0.9% 500 ml Route: IV; Rate: bolus; Site: left hand; mb9 13:00 Drug: Ondansetron 4 mg Route: IVP; Site: left hand; mb9 13:48 Drug: Tamiflu (oseltamivir) 75 mg Route: PO; mb9 15:17 Follow up: Response: No adverse reaction mb9 14:05 Drug: Rocephin (cefTRIAXone) 1 grams Route: IV; Rate: bolus; Site: left hand; mb9 15:16 Follow up: Response: No adverse reaction; IV Status: Completed infusion mb9 14:13 Drug: AZITHromycin 500 mg Route: IVPB; Infused Over: 1 hrs; Site: left hand; mb9 15:16 Follow up: Response: No adverse reaction; IV Status: Completed infusion mb9 14:34 Drug: Zosyn (piperacillin-tazobactam) 3.375 grams Route: IVPB; Infused Over: 60 mins; mb9 Site: right forearm; 15:36 Follow up: Response: No adverse reaction; IV Status: Completed infusion mb9 15:16 Drug: vancoMYCIN 1 grams Route: IVPB; Infused Over: 2 hrs; Site: left hand; mb9 Medication: 13:27 VIS not applicable for this client. mb9 Outcome: 13:55 Decision to Hospitalize by Provider. bs3 15:37 Admitted to Med/surg accompanied by tech, via stretcher, room 215, with oxygen, with mb9 chart, Report called to JOSE [place] 15:37 Condition: stable 16:04 Patient left the ED. mb9 Signatures: Henna Castaneda Jessica, RN RN jh5 Da Aiken MD MD bs3 Shanita Garrett RN RN mb9 Corrections: (The following items were deleted from the chart) 13:31 12:30 Respiratory: Airway is patent Respiratory effort is even, unlabored, Respiratory mb9 pattern is regular, symmetrical, Breath sounds are coarse bilaterally. mb9 14:05 14:03 Pulse 78bpm; Pulse Ox 92% RA; placed pt on 2L/min via nasal cannula. Oxygen mb9 saturation now 97%; mb9
--- NOTE | 2022-05-16 13:55 | EDPHYS ---
Physician Documentation [facility] Name: Osman Foy Jr Age: 72 yrs Sex: Male : 1950 Arrival Date: 05/16/2022 Time: 11:53 Bed 24 Private MD: Tiffanie Hobson C ED Physician Da Aiken HPI: 05/16 12:28 This 72 yrs old Male presents to ER via Ambulatory with complaints of Cough, bs3 Hand Swelling, Decreased Appetite. 12:28 72-year-old history of hypertension, Parkinson's, asbestosis status post left drainage bs3 catheter presents with cough decreased appetite and nausea it started after getting a CT scan last week he denies any fevers or chills denies chest pain shortness of breath per his family he is thinks he is dying he denies any current pain but notes that he gets some low back pain when he moves. . Historical: - PMHx: 12:06 Parkinsons; Hypertensive disorder; Brain bleed; [facility] - PSHx: 12:06 Cholecystectomy; Appendectomy; Vasectomy; [facility] - Immunization history:: Adult Immunizations up to date. - Social history:: Smoking status: Patient denies any tobacco usage or history of. ROS: 13:56 Constitutional: Negative for fever, chills bs3 13:56 All other systems are negative. Exam: 13:05 Normal sinus rhythm at [address] elevations or depressions QTc 511 as interpreted by bs3 myself 13:55 Constitutional: Patient appears frail, chronically ill Head/Face: Normocephalic, bs3 atraumatic. Eyes: Pupils equal round and reactive to light, extra-ocular motions intact. Lids and lashes normal. ENT: Dry mucous membranes no posterior phyarngeal erythema Neck: Trachea midline, no thyromegaly, no neck stiffness Chest/axilla: Normal chest wall appearance and motion. Nontender with no deformity. No lesions are appreciated. Cardiovascular: Regular rate and rhythm with a normal S1 and S2. symmetric pulses in upper extremities Respiratory: Decreased breath sounds on the left compared to the right no respiratory distress Abdomen/GI: Soft, non-tender, no rebound or guarding MS/ Extremity: Pulses equal, no cyanosis. Neurovascular intact. Full, normal range of motion. Neuro: Awake and alert, GCS 15, oriented to person, place, time, and situation. Cranial nerves II-XII grossly intact. Motor strength 5/5 in all extremities. Sensory grossly intact. Psych: Awake, alert, with orientation to person, place and time. Behavior, mood, and affect are within normal limits. Vital Signs: 12:02 BP 111 / 71; Pulse 87; Resp 20; Temp 98.8; Pulse Ox 94% ; Weight 72.57 kg; Height 5 ft. jh5 8 in. (172.72 cm); Pain 0/10; 13:29 BP 131 / 66; Pulse 83; Resp 20; Pulse Ox 96% on R/A; mb9 13:35 Pulse 78; Pulse Ox 92% on R/A; mb9 13:35 Pulse 82; Resp 28; Pulse Ox 96% on 1 lpm NC; mb9 14:48 BP 133 / 70; Pulse 82; Resp 26; Pulse Ox 95% on 1 lpm NC; mb9 15:37 BP 117 / 72; Pulse 79; Resp 26; Pulse Ox 97% on 2 lpm NC; mb9 12:02 Body Mass Index 24.33 (72.57 kg, 172.72 cm) jh5 13:35 placed pt on 2L/min via nasal cannula. Oxygen saturation now 97% mb9 MDM: 12:11 Patient medically screened. bs3 13:45 Differential Diagnosis: Obstructed Airway Upper Respiratory Infection Other bs3 electroloyte abn. Data reviewed: vital signs, nurses notes. 13:48 ED course: initialy started with ceftriaxone and azithromycin based on cxr, d/w Dr. annie Hobson who requested broaden to vanc/zosyn, d/w Dr. Conroy, who requested eval by gen surg [facility], I discussed with him, who will see the patient, will admit to Dr. Joce willams. ED course: X-ray interpreted x-ray interpreted by myself consistent with recurrent pleural effusion, fluid positive possible post flu pneumonia. 05/16 12:24 Order name: CBC with Diff 3 05/16 12:24 Order name: Magnesium rust 05/16 12:24 Order name: NT PRO-BNP 3 05/16 12:24 Order name: Troponin HS 3 05/16 12:24 Order name: CMP rust 05/16 12:29 Order name: SARS-COV-2 Antigen Rapid rust 05/16 12:29 Order name: Influenza Screen (a \T\ B) bs3 05/16 13:16 Order name: CBC with Automated Diff; Complete Time: 13:31 EDMS 05/16 13:17 Order name: Influenza Screen (A ; Complete Time: 13:25 EDMS 05/16 13:18 Order name: SARS-COV-2 Antigen Rapid; Complete Time: 13:25 EDMS 05/16 13:24 Order name: Comprehensive Metabolic Panel; Complete Time: 13:25 EDMS 05/16 13:24 Order name: Troponin High Sensitivity; Complete Time: 13:25 EDMS 05/16 13:24 Order name: NT PRO-BNP; Complete Time: 13:25 EDMS 05/16 13:24 Order name: Magnesium; Complete Time: 13:25 EDMS 05/16 12:14 Order name: XRAY Chest (1 view) 3 05/16 13:17 Order name: RAD; Complete Time: 13:25 EDMS 05/16 13:27 Order name: Blood Culture Adult (2) 3 05/16 13:27 Order name: Lactate w/ 2H reflex if indic. bs3 05/16 13:27 Order name: Protime (+inr) 3 05/16 13:27 Order name: Ptt, Activated bs3 05/16 13:31 Order name: CBC Smear Scan; Complete Time: 13:31 EDMS 05/16 14:00 Order name: Glucose, Ancillary Testing; Complete Time: 14:37 EDMS 05/16 14:01 Order name: Protime (+INR); Complete Time: 14:37 EDMS 05/16 14:01 Order name: PTT, Activated Partial Thromb; Complete Time: 14:37 EDMS 05/16 14:11 Order name: Lactate w/ 2H reflex if indic.; Complete Time: 14:37 EDMS 05/16 12:24 Order name: EKG; Complete Time: 12:25 05/16 12:24 Order name: Cardiac monitoring; Complete Time: 12:54 05/16 12:24 Order name: EKG - Nurse/Tech; Complete Time: 12:54 05/16 12:24 Order name: IV Saline Lock; Complete Time: 12:54 05/16 12:24 Order name: Labs collected and sent; Complete Time: 12:54 05/16 12:24 Order name: O2 Per Protocol; Complete Time: 12:54 bs3 05/16 12:24 Order name: O2 Sat Monitoring; Complete Time: 12:54 bs3 05/16 13:27 Order name: Accucheck; Complete Time: 13:48 bs3 05/16 13:27 Order name: Vital Signs; Complete Time: 13:32 bs3 Administered Medications: 13:00 Drug: NS 0.9% 500 ml Route: IV; Rate: bolus; Site: left hand; mb9 13:00 Drug: Ondansetron 4 mg Route: IVP; Site: left hand; mb9 13:48 Drug: Tamiflu (oseltamivir) 75 mg Route: PO; mb9 15:17 Follow up: Response: No adverse reaction mb9 14:05 Drug: Rocephin (cefTRIAXone) 1 grams Route: IV; Rate: bolus; Site: left hand; mb9 15:16 Follow up: Response: No adverse reaction; IV Status: Completed infusion mb9 14:13 Drug: AZITHromycin 500 mg Route: IVPB; Infused Over: 1 hrs; Site: left hand; mb9 15:16 Follow up: Response: No adverse reaction; IV Status: Completed infusion mb9 14:34 Drug: Zosyn (piperacillin-tazobactam) 3.375 grams Route: IVPB; Infused Over: 60 mins; mb9 Site: right forearm; 15:36 Follow up: Response: No adverse reaction; IV Status: Completed infusion mb9 15:16 Drug: vancoMYCIN 1 grams Route: IVPB; Infused Over: 2 hrs; Site: left hand; mb9 Disposition Summary: 05/16/22 13:55 Hospitalization Ordered Hospitalization Status: Inpatient Admission bs3 Provider: Tiffanie Hobson Location: Telemetry/MedSurg (Inpatient) bs3 Condition: Fair bs3 Problem: new bs3 Symptoms: have worsened bs3 Bed/Room Type: Standard bs3 Room Assignment: [facility](05/16/22 14:53) bd Diagnosis - Influenza due to unidentified influenza virus with other respiratory manifestations bs3 - Unspecified bacterial pneumonia bs3 Forms: - Medication Reconciliation Form bs3 - SBAR form bs3 Signatures: Dispatcher [employer] EDSilvana Carranza Roman, MD MD rn Rees, Jessica, RN RN jh5 Da Aiken MD MD bs3 Shanita Garrett RN RN mb9 Corrections: (The following items were deleted from the chart) 1453 13:55 bs3 bd
[2022-05-16 14:01] LABS: Protime INR 1.28
[2022-05-16] MEDS ORDERED: ALBUTEROL 2.5 MG/3 ML NEB SOL NEB PRN (14:01)
[2022-05-16] MEDS ORDERED: IPRATROPIUM BROM 0.5MG/2.5ML NEB PRN (14:01)
[2022-05-16] MEDS ORDERED: ACETAMINOPHEN 500 MG TAB PO PRN (14:01)
[2022-05-16] MEDS ORDERED: NA CHLORIDE 0.9% 100 ML ONE (14:23)
[2022-05-16] MEDS ORDERED: PIPERACIL/TAZO 3.375 GM VIAL IV ONE (14:23)
[2022-05-16] MEDS ORDERED: VANCOMYCIN 1 GM/VIAL ONE (14:23)
[2022-05-16 16:47] VITALS: BMI 24.1
[2022-05-16] MEDS ORDERED: INFLUENZA VACCINE (for 6+ mo) 0.5 ML DOSE IMVAC ONE (18:00)
[2022-05-16] MEDS ORDERED: PNEUMOCOCCAL VACCINE 0.5 ML IMVAC ONE (18:00)
--- NOTE | 2022-05-16 20:18 | HP ---
Date of Admission: 05/16/2022 Chief Complaint: Fever and chills, shortness of breath. History Of Present Illness: This is a 72-year-old pleasant male patient who has been having some rhoda rtness of breath lately. He started to have fever and chills as of yesterday and today the patient's contacted office and she was advised to bring the patient to emergency room and after he was ev aluated, he was admitted to the hospital. The patient has a history of chronic recurrent left-sided pleural effusion and he has PleurX catheter placed in his left thoracic cage and as per instruction f rom Dr. Gee, was removing pleural fluid from the left thoracic cavity on a frequent basis, but after the last CAT scan of the chest that was done recently, the patient was told no need for any such removal of fluid. The patient denies any abdominal pain, nausea, or vomiting. No constipation . No diarrhea. No urinary complaints. Allergies: NO KNOWN ALLERGIES. Medications: List reviewed. Review of Systems: Constitutional: As mentioned above. Respiratory: As mentioned above. CULINARY ARTIST: The patient has tremor due to Parkinson disease. Psychiatry: Has depression problem. All other systems reviewed and negative. Past Medical History: Significant for Parkinson disease, depression, impaired fasting glucose, hyper lipidemia, orthostatic hypotension, gastroesophageal reflux disease, diverticulosis, elevated PSA, an d chronic kidney disease. Past Surgical History: Significant for cataract surgery, cholecystectomy, appendectomy, and prostate biopsy, which was negative in 2009. Family History: Father had esophageal cancer. Mother had ovarian cancer and hypertension. Social History: Negative for smoking or alcohol use. Physical Examination: Vital Signs: When he first came into emergency room, temperature 98.8, pulse 87, blood pressure 111/ 71, and oxygen saturation 94%. Height 5 feet 8 inches, weight 159 pounds. General: Awake, alert, oriented, not in distress. HEENT: Head atraumatic, normocephalic. Conjunctivae nonerythematous. Sclerae white. Mouth, no thr ush or edema noted. Ears/Nose, no mass, lesion, discharge noted. Neck: Supple. No JVD, lymph nodes, bruit, thyromegaly noted. Lungs: Diminished air entry in lower half of left lung field. Not using any accessory muscles of re spiration. Heart: Normal heart sounds, no murmur or gallop. Abdomen: Soft, bowel sounds normal. No guarding, rigidity, tenderness, mass, hepatosplenomegaly, dis tention, or bruit noted. Extremities: No leg edema. No calf tenderness. Skin: No rash, ulcer, cellulitis. Lymphatics: No lymph node enlargement in neck, supraclavicular, infraclavicular region. Neuro: No focal neurological deficit. Chest: Unremarkable. External Genitalia: Deferred. Rectal: Deferred. Laboratory Data: White count 25.1, hemoglobin 12, and platelets 385. Sodium 142, potassium 3.7, chl oride 104, bicarb 32, BUN 23, creatinine 0.94, glucose 145, AST 51, ALT 11, and alkaline phosphatase 151. Lactic acid level 1.1. ProBNP 2235. COVID-19 test negative. Chest x-ray shows left-sided ple ural effusion. Impression: 1.Left pleural effusion. 2.Leukocytosis, rule out pneumonia versus empyema. 3.Parkinson disease. 4.Impaired fasting glucose. 5.Hyperlipidemia. 6.Orthostatic hypotension. 7.Depression. 8.Gastroesophageal reflux disease. Plan: We will go ahead and admit the patient to hospital for further evaluation and management of th is problem. The patient is appropriate for inpatient and [facility] We will go ahead and give broad-spectrum antibiotics, which were Zosyn and vancomycin, which were ordered when ER physician contacted me and the patient has received first dose in the emergency room and will continue that starting tomorrow. We will request consultation from Dr. Gee. Home med ications will be continued per order and follow up on culture results. DVT prophylaxis will be given per order. Details and plan of treatment discussed with the patient and the patient's , who was at bedside. I will see him tomorrow for followup. Advance directives today in presence of his and in the event of cardiopulmonary arrest, he informed me that he does not want any heroic measures done and he would like God and nature to take its course and keep him comfortable and DNR order will be written in the chart per the patient's decision. For his depression, we will continue his antide pressant medications per order. For his benign prostatic hypertrophy, we will continue his home medi cation which is tamsulosin and finasteride per order. For Parkinson disease, we will continue his me dications as he takes at home per neurologist. I will see him tomorrow morning for followup and we w ill repeat blood work tomorrow morning. GARRETT/MODL Voice ID: [id number]
[2022-05-17 03:43] LABS: Absolute Lymphocytes (CBC) 1.1 K/uL (0.7-4.9); Hematocrit 33.6 % (39.6-49.0); Lymphocytes % 4.7 % (15.3-44.8); MCV 90.4 fL (80-100); MPV 8.4 fL (7.6-11.3); RBC Red Blood Cell Count 3.72 M/uL (4.33-5.43)
[2022-05-17 04:07] LABS: Potassium 3.1 mmol/L (3.5-5.1)
[2022-05-17 08:01] LABS: Urine Bacteria None Seen /HPF (<20); Urine Mucus Slight /HPF (None Seen); Urine RBC <5 /HPF (None Seen)
[2022-05-17 08:03] LABS: Specific Gravity 1.022 (1.005-1.030); Urine Bilirubin NEGATIVE (Negative); Urine Blood Negative (Negative); Urine Clarity Clear (Clear); Urine Color Yellow (Yellow); Urine Glucose NEGATIVE (Negative); Urine Protein 1+ (Negative); Urine Urobilinogen 1+ (Normal)
[2022-05-17] MEDS ORDERED: ENOXAPARIN 40 MG/0.4 ML SQ SCH (09:00)
[2022-05-17] MEDS ORDERED: MAGNESIUM SULFATE 1 gm IVPB 1 GM/100 ML BAG IV ONE (09:00)
[2022-05-17] MEDS ORDERED: FLUDROCORTISONE 0.1 MG TAB PO SCH (09:00)
[2022-05-17] MEDS ORDERED: FINASTERIDE 5 MG TAB PO SCH (09:00)
[2022-05-17] MEDS ORDERED: SERTRALINE HCL 50 MG TAB PO SCH (09:00)
[2022-05-17] MEDS ORDERED: VANCOMYCIN 1 GM in NA CHLORIDE 0.9% 250 ML IVPB SCH (09:00)
[2022-05-17] MEDS ORDERED: POTASSIUM 25 MEQ EFFERV TAB PO ONE (09:00)
[2022-05-17] MEDS: MIDODRINE HCL 5 MG TABLET PO SCH ×3 (09:37→15:57)
[2022-05-17] MEDS: MEMANTINE HCL 10 MG TABLET PO SCH ×2 (09:38→20:34)
[2022-05-17] MEDS: CARBIDOPA/LEVODOPA 25/250 TAB PO SCH ×3 (09:38→20:34)
[2022-05-17] MEDS: RIVASTIGMINE TARTRATE 1.5 MG PO SCH ×2 (09:38→21:03)
[2022-05-17] MEDS: VANCOMYCIN 1.25 GM in NA CHLORIDE 0.9% 250 ML IVPB SCH ×2 (09:39→20:53)
[2022-05-17] MEDS: PIPER TAZO 4.5 GM in NA CHLORIDE 0.9% 100 ML IV SCH ×2 (09:39→16:31)
--- NOTE | 2022-05-17 11:31 | P.CNS ---
Date of Consult: 05/17/22 Reason for Consult: Loculated pleural effusion Chief Complaint: Fever weakness History of Present Illness: Patient is 72 years of age with a history of Parkinson's disease he does have a Pleurx catheter on the left side however in the last week it quit draining CT scan showed a loculated pleural effusion has had some fever weakness admitted to the hospital Allergies No Known Allergies Allergy (Verified 11/03/21 07:59) Home Medications: Finasteride [Proscar*] 5 mg PO DAILY 08/11/17 Memantine HCl 10 mg PO BID 08/11/17 Sertraline HCl 1.5 tab PO DAILY 08/11/17 Tamsulosin HCl 0.4 mg PO BEDTIME 08/11/17 buPROPion HCL [Bupropion HCl Sr] 1 tab PO DAILY AFTER SUPPER 11/03/21 Aller-Zyr 10mg 10 mg PO BEDTIME 12/16/21 Atorvastatin Calcium 20 mg PO BEDTIME 12/16/21 Carbidopa/Levodopa [Carbidopa-Levo 25-250 mg Odt] 1 each PO TID 12/16/21 Fludrocortisone [Florinef *] 0.1 mg PO DAILY 12/16/21 Midodrine HCl 10 mg PO TID 12/16/21 Rabeprazole Sodium 20 mg PO BEDTIME 12/16/21 Rivastigmine Tartrate [Rivastigmine] 2 cap PO TID 12/16/21 Trazodone HCl 100 mg PO BEDTIME 12/16/21 Cefpodoxime Proxetil 100 mg PO BID #14 tab 12/18/21 Mirtazapine 7.5 mg PO BEDTIME 05/16/22 Trospium Chloride [Sanctura] 20 mg PO BEDTIME 05/16/22 - Past Medical/Surgical History Diabetic: No -: Parkinsons -: Brain bleed -: appendectomy -: vasectomy -: cholecystectomy - Family History Mother Medical History: Cancer Father Medical History: Cancer Sister Medical History: Cancer - Social History Alcohol use: No CD- Drugs: No Caffeine use: Yes Place of Residence: Home Review of Systems General: Weakness, Malaise Respiratory: Shortness of Breath Physical Examination Temp Pulse Resp BP Pulse Ox 99.5 F 76 16 123/66 92 05/17/22 08:00 05/17/22 08:00 05/17/22 08:00 05/17/22 08:00 05/17/22 08:00 General: Alert, Cooperative Respiratory: Clear to auscultation bilaterally, Diminished (Managed on the left side) Cardiovascular: No edema, Regular rate/rhythm Laboratory Data (last 24 hrs) 05/16/22 13:40: PT 14.1 H, INR 1.28, APTT 28.9 05/16/22 12:50: Sodium 142, Potassium 3.7, BUN 23 H, Creatinine 0.94, Glucose 145 H, Magnesium 1.8, Total Bilirubin 0.7, AST 51 H, ALT 11 L, Alkaline Phosphatase 151 H 05/16/22 12:50: WBC 25.10 H*, Hgb 12.0 L, Hct 36.9 L, Plt Count 385 - Problems (1) Loculated pleural effusion Current Visit: Yes Status: Acute Plan: Patient is 72 years of age history of Parkinson's disease with recurrent effusion has a Pleurx catheter and now has a loculated pleural effusion elevated white count is likely infection of his pleural space will start patient on vancomycin and Zosyn transfer to a tertiary care center for VATS or drainage via percutaneous catheter Labs chemistries all reviewed discussed with the patient in the presence of his and his son vital signs stable afebrile stable for transport
[2022-05-17 14:56] VITALS: O2SAT 92
[2022-05-17] MEDS ORDERED: NA CHLORIDE 0.9% 250 ML ONE (16:24)
[2022-05-17] MEDS: KCL 20 MEQ/100 mL IVPB 20 MEQ/100 ML BAG IV SCH ×2 (16:31→17:47)
--- NOTE | 2022-05-17 16:45 | RAD REPORT ---
EXAM DESCRIPTION: RAD - Barium Swallow Modified - 05/17/2022 4:27 pm CLINICAL HISTORY: failed bedside swallow COMPARISON: Renal Ultrasound-Complete dated 07/20/2021 TECHNIQUE: The patient was given liquid, semi-solid and solid forms of barium. Lateral view fluorosc opic imaging was performed in conjunction with speech pathology service. FINDINGS: PHARYNGEAL RESIDUE: IN VALLECULAR, PYRIFORM AND POSTERIOR WALL HAD MILD COATING STUDY PERFORMED WITH PATIENT IN CHIN TUCK POSITION DUE TO POOR HEAD / TRUNK CONTROL. ORAL PHASE: TONGUE PUMPING, LOSS OF ROTARY MASTICATION, POOR LABIAL SEAL / ORAL CONTAINMENT. Total fluoroscopy time: 2 minutes and 17 seconds
--- NOTE | 2022-05-17 17:14 | EKG ---
Test Date: 2022-05-16 Test Time: 12:38:34 Adon: MB MEASUREMENT RESULTS: Intervals: Rate: 85 MI: 122 QRSD: 100 QT: 430 QTc: 511 [place]: P: 61 MI: 122 QRS: 57 T: 34 INTERPRETIVE STATEMENTS: Normal sinus rhythm with sinus arrhythmia Prolonged QT Abnormal ECG Compared to ECG 05/01/2022 11:04:21 ST (T wave) deviation no longer present Electronically Signed On 05-17-22 17:10:00 MANAGER [employer] by Milad Loepz
[2022-05-17] MEDS ORDERED: BUPROPION HCL 100 MG PO SCH (17:30)
[2022-05-17] MEDS ORDERED: HOME MED 1 EA UNK (Rabeprazole Sodium [Rabeprazole Sodium] 20 MG Tablet.Dr) PO SCH (21:00)
[2022-05-17] MEDS ORDERED: MIRTAZAPINE 15 MG TAB PO SCH (21:00)
[2022-05-17] MEDS ORDERED: HOME MED 1 EA UNK (Trospium Chloride [Sanctura] 20 MG Tablet) PO SCH (21:00)
[2022-05-17] MEDS ORDERED: ATORVASTATIN 20 MG TAB PO SCH (21:00)
[2022-05-17] MEDS ORDERED: TAMSULOSIN 0.4 MG SR CAP PO SCH (21:00)
[2022-05-17] MEDS ORDERED: PANTOPRAZOLE 40MG TABLET PO SCH (21:00)
[2022-05-17 21:22] VITALS: BP 130/68; TEMP 99.1
--- NOTE | 2022-05-18 06:52 | DS ---
Date of Discharge: 05/17/2022 Disposition: Patient was transferred to [facility] in [place] for higher level of care. Physical Examination: HEENT: Unremarkable. Lungs: Bilateral good equal air entry except diminished air entry in the left lower lung field, unch anged from yesterday, not using any accessory muscles of respiration. Heart: Sounds normal. Abdomen: Soft. Bowel sounds normal. No guarding, rigidity, tenderness, distention. Extremities: No leg edema. Laboratory Data: Today; white count 23.2, hemoglobin 11, platelets 359. Yesterday; white count 25.1 , hemoglobin 12, platelets 385. Today; sodium 140, potassium 3.1, chloride 104, bicarb 29, BUN 24, c reatinine 0.78, glucose 115. ProBNP 1638. Yesterday; sodium 142, potassium 3.7, chloride 104, bicar b 32, BUN 23, creatinine 0.94, glucose 145. Hospital Course: This is a 72-year-old male patient admitted to the hospital with shortness of breat h and fever. Please see dictated H and P for more information. After patient was evaluated in the e mergency room, he was admitted to the hospital. The patient has a chronic left-sided pleural effusio n for which he has PleurX type of catheter in place and as per instruction from Dr. Gee, who has been managing him on outpatient basis for this problem, the patient's has been draining this pl eural fluid on a regular intermittent basis. He had a CAT scan of the chest done on outpatient basis per Dr. Gee on 05/13/2022 and that showed that the tip of the catheter was in the lower part of the pleural cavity and proximal to the tip of the catheter, there was a pocket of fluid, which was s eparate from the position of the catheter. After he came to emergency room, he was evaluated, admitt ed to the hospital. We were clinically concerned about possibility of empyema. Zosyn and vancomycin were started and he was admitted to the hospital. Dr. Gee was consulted for Pulmonary Service. The patient overall clinically remained stable today. Dr. Gee evaluated him and informed me t hat this definitely concern about empyema and recommended for patient to be transferred to [facility] higher level of care, and after he made arrangements, the patient was transferred via [facility] with all current orders. Today, patient had trouble swallowing and Speech Therapy was consulted. Modified barium swallow was done and after that, as per recommendation from Speech Therapy, diet order was written. Final Diagnoses: 1.Empyema. 2.Hypokalemia. 3.Parkinson disease. 4.Impaired fasting glucose. 5.Hypertension. 6.Hyperlipidemia. 7.Orthostatic hypotension. 8.Dysphagia. 9.Gastroesophageal reflux disease. 10.Diverticulosis. 11.Depression. GARRETT/MODL Voice ID: [id number] Report ID: [id number]
[2022-05-18] MEDS ORDERED: ENOXAPARIN 40 MG/0.4 ML SQ SCH (09:00)
== END 2022-05-17 23:40 | disposition short-term general hospital (02) | DRG 178 ==
LOC: ER 11:50 → ERHOLD 13:58 → 2ND 15:36
PROVIDERS: ADMIT Internal Medicine; ATTEND Internal Medicine
DX: J86.9 Pyothorax without fistula (principal); J90 Pleural effusion, not elsewhere classified; G20 Parkinson's disease; N18.9 Chronic kidney disease, unspecified; I12.9 Hypertensive chronic kidney disease with stage 1 through stage 4 chronic kidney disease, or unspecified chronic kidney disease; E78.5 Hyperlipidemia, unspecified; I95.1 Orthostatic hypotension; E87.6 Hypokalemia; F32.A Depression, unspecified; K21.9 Gastro-esophageal reflux disease without esophagitis; N40.0 Benign prostatic hyperplasia without lower urinary tract symptoms; K57.90 Diverticulosis of intestine, part unspecified, without perforation or abscess without bleeding; R73.01 Impaired fasting glucose; Z66 Do not resuscitate; Z98.52 Vasectomy status; Z90.49 Acquired absence of other specified parts of digestive tract; Z79.899 Other long term (current) drug therapy; Z20.822 Contact with and (suspected) exposure to COVID-19
CPT/HCPCS: 36415; 71045; 74230; 80048; 80053; 81001; 82947; 83605; 83735; 83880; 84132; 84484; 85025; 85610; 85730; 87040; 87086; 87088; 87804; 87811; 92610; 92611; 93005; 94760; 97161; 97530; 99285; J0456; J1650; J2405; J2543; J3370; J3475; J3480; J7040; J7050